=== PATIENT | female | born 1950 ===

== ENCOUNTER → 2020-02-27 10:31 | Outpatient (BNVA) | payer MEDICARE, SELFPAY | PROVIDERS: PCP Internal Medicine; Visit Provider Dietitian, Registered | DX: Z76.89 Persons encountering health services in other specified circumstances (principal) ==

== ENCOUNTER → 2020-04-23 08:37 | Outpatient (BNVA) | payer MEDICARE, SELFPAY | PROVIDERS: PCP Internal Medicine; Visit Provider Physician Assistant | DX: E66.3 Overweight (principal) | CPT/HCPCS: Q3014 ==

== ENCOUNTER → 2020-07-28 08:10 | Outpatient (BNVA) | payer MEDICARE, SELFPAY | PROVIDERS: PCP Internal Medicine; Visit Provider Dietitian, Registered ==

== ENCOUNTER → 2020-08-25 15:01 | Outpatient (BNVA) | payer MEDICARE, SELFPAY | PROVIDERS: PCP Internal Medicine; Visit Provider Dietitian, Registered | DX: E66.3 Overweight (principal) | CPT/HCPCS: 97803 ==

== ENCOUNTER → 2020-09-08 13:31 | Outpatient (BNVA) | payer MEDICARE, SELFPAY | PROVIDERS: PCP Internal Medicine; Visit Provider Physician Assistant | DX: E66.3 Overweight (principal); Z68.29 Body mass index [BMI] 29.0-29.9, adult | CPT/HCPCS: 99212 ==

== ENCOUNTER → 2020-09-28 09:10 | Outpatient (BNVA) | payer MEDICARE, SELFPAY | PROVIDERS: PCP Internal Medicine; Visit Provider Nurse Practitioner | DX: Z13.89 Encounter for screening for other disorder (principal) | CPT/HCPCS: Q3014 ==

== ENCOUNTER 2020-10-29 08:22 | Outpatient (REF) | payer MEDICARE, SELFPAY ==
[2020-10-29 12:40] LABS: Free T4 (Free Thyroxine) 0.75 ng/dL (0.71-1.85); Thyroid Stimulating Hormone 0.74 uIU/mL (0.32-4.0)
[2020-10-29 13:34] LABS: Cholesterol 250 mg/dL; HDL Cholesterol 75 mg/dL; LDL Cholesterol Calculated 164 mg/dl; Triglycerides 57 mg/dL
== END 2020-10-29 08:23 | disposition home or self-care (01) ==
LOC: HO.MANLR 08:22
PROVIDERS: PCP Internal Medicine; Visit Provider Internal Medicine
DX: E03.9 Hypothyroidism, unspecified (principal); E78.00 Pure hypercholesterolemia, unspecified
CPT/HCPCS: 36415; 80061; 84439; 84443

== ENCOUNTER → 2020-11-08 14:09 | Outpatient (BNVA) | payer MEDICARE, SELFPAY | PROVIDERS: PCP Internal Medicine; Visit Provider Nurse Practitioner | DX: R14.0 Abdominal distension (gaseous) (principal); K58.2 Mixed irritable bowel syndrome; R63.0 Anorexia; R63.3 Feeding difficulties; R11.0 Nausea; K21.9 Gastro-esophageal reflux disease without esophagitis; E66.3 Overweight; Z80.0 Family history of malignant neoplasm of digestive organs; D12.6 Benign neoplasm of colon, unspecified | CPT/HCPCS: 99212 ==

== ENCOUNTER → 2020-11-23 11:07 | Outpatient (BNVA) | payer MEDICARE, SELFPAY | PROVIDERS: PCP Internal Medicine; Visit Provider Physician Assistant | DX: E66.3 Overweight (principal); Z68.29 Body mass index [BMI] 29.0-29.9, adult | CPT/HCPCS: 99212 ==

== ENCOUNTER → 2020-12-22 10:59 | Outpatient (BNVA) | payer MEDICARE, SELFPAY | PROVIDERS: PCP Internal Medicine; Visit Provider Dietitian, Registered | DX: E66.3 Overweight (principal); Z68.29 Body mass index [BMI] 29.0-29.9, adult | CPT/HCPCS: 97803 ==

== ENCOUNTER 2020-12-31 10:26 | Day surgery (SDC) | payer MEDICARE, SELFPAY ==
[2020-12-24 09:45] VITALS: BMI 29.6
[2020-12-31 11:44] VITALS: BP 118/63; PULSE 66; RESP 16; TEMP 36.7; O2SAT 95
[2020-12-31] MEDS: Lactated Ringers 1,000 ML 50 ML IVCONT (11:53)
--- NOTE | 2020-12-31 12:30 | HO.ANESPROP2 ---
[facility] [place] Active Problems Active Problems: All Active Problems (Updated 11/10/20 @ 14:21 by JOSEPH Fishman) Tubular adenoma of colon (Acute) Family history of colon cancer (Acute) GERD (gastroesophageal reflux disease) (Acute) Abdominal bloating (Acute) Irritable bowel syndrome with both constipation and diarrhea (Acute) Lack of appetite (Acute) Food aversion (Acute) Chronic nausea (Acute) Overweight (BMI 25.0-29.9) (Acute) Past Medical History Medical History Asthma Chronic nausea Constipation Diarrhea Food aversion Hearing loss Hypothyroidism Insomnia Lack of appetite Osteopenia Overweight (BMI 25.0-29.9) Uses hearing aid Family History Family History Father Colon cancer Mother Bone loss Blindness Brother Obesity Brother No problems noted. Sister No problems noted. Son No problems noted. Daughter No problems noted. Family history of problems with anesthesia: No Surgical History Surgical History History of bladder suspension procedure History of dental mormon History of intraocular lens implant Hx of appendectomy Hx of breast reduction, elective History of Problems with Anesthesia: No Social History Social History Alcohol intake: never Patient Tobacco Use Status: Never used Tobacco Use of substances other than those prescribed or required for medical reasons: No Are you DNR?: No Advance Directives: No Advance Directives Information Provided: Yes Meds Allergies Allergy/AdvReac Type Severity Reaction Status Date / Time amoxicillin Allergy Severe Anaphylaxis Verified 12/31/20 11:30 citalopram [Celexa] Allergy Severe Anaphylaxis Verified 12/31/20 11:30 Fragrance Allergy Severe Anaphylaxis Uncoded 12/24/20 09:41 Fructose Allergy Severe Anaphylaxis Uncoded 12/24/20 09:41 Latex Allergy Severe Anaphylaxis Uncoded 12/24/20 09:41 Sulfacet-R Allergy Severe Anaphylaxis Uncoded 12/24/20 09:41 Active Medications: Current Medications Generic Name Dose Route Start Last Admin Trade Name Freq PRN Reason Stop Dose Admin Lactated Ringer's 1,000 mls @ 50 mls/hr 12/31/20 08:00 12/31/20 11:53 Lr IVCONT 50 mls/hr .Q20H LAMINE Administration Home Medications Medication Instructions Recorded Confirmed Last Taken Type albuterol sulfate 90 mcg/actuation 2 puff INHALATION 6XD 04/23/20 11/23/20 Unknown History aerosol inhaler atorvastatin 10 mg tablet 10 mg PO DAILY 04/23/20 11/23/20 Unknown History cholecalciferol (vitamin D3) 25 25 mcg PO DAILY 04/23/20 11/23/20 Unknown History mcg (1,000 unit) capsule levothyroxine 50 mcg capsule 50 mcg PO DAILY 04/23/20 11/23/20 Unknown History montelukast 10 mg tablet 10 mg PO DAILY 04/23/20 11/23/20 Unknown History sertraline 100 mg tablet 100 mg PO DAILY 04/23/20 11/23/20 Unknown History vitamin A palmitate 10,000 unit 10,000 unit PO DAILY 04/23/20 11/23/20 Unknown History tablet pgzbhy-vkyqnezs-kfwwphp 1 cap PO BID 11/23/20 11/23/20 Unknown History 24,000-76,000-120,000 unit capsule,delayed rel (Creon) ewbdbl-iczqpnqo-djthflf 2 cap PO ONCE cap 11/23/20 11/23/20 Unknown History 24,000-76,000-120,000 unit capsule,delayed rel (Creon) liothyronine 25 mcg tablet 1 tab PO DAILY 12/31/20 12/31/20 Unknown History Exam Exam Date and Time: December 31, 2020 1230 Height,Weight and Vital Signs: Height 5 ft 1 in Weight 71.214 kg Last Vital Signs Temp 98.0 F 12/31/20 11:44 Pulse 66 12/31/20 11:44 Resp 16 12/31/20 11:44 BP 118/63 12/31/20 11:44 Pulse Ox 95 12/31/20 11:44 Airway Mallampati Class: II TM Dist: >3cm Neck ROM: Full Assessment and Plan Assessment Anesthesia Assessment: Anesthesia Plan Discussed and Chart Reviewed Final Anesthetic Review Family History of Problems with Anesthesia: No History of Problems with Anesthesia: No NPO: Yes ASA Class: II Final Preanesthetic Review: No Changes in Pt Med Stat, Meds/Allgs Chart Reviewed, Consent Obtained/Reviewed and Anes Risks/Benef Reviewed Patient Risk: Low Procedure Risk: Low Assessment/Block/Sedation in SS: Assess/Block/Sedation-SS Anesthetic Plan Anesthetic Plan: MAC: Disposition: Standard PACU
--- NOTE | 2020-12-31 13:11 | MHC.SHP ---
Pre-Procedural Eval Section A Date of Service: 12/31/20 Section B Chief Complaint: IBS mixed Details of Present Illness: Colon cancer screening, history of colon polyps, family history of colon cancer, IBS Relevant Family History (Specify if Yes): Yes Relevant Social History: None Present Medications: see Short Stay Collaborative assessment Medical History: Significant History (Asthma Chronic nausea Constipation Diarrhea Food aversion Hearing loss Hypothyroidism Insomnia Lack of appetite Osteopenia Overweight (BMI 25.0-29.9) Uses hearing aid) History of Previous Operations: Relevant previous surgery/procedure and date(s) (History of bladder suspension procedure History of dental orthodoxy History of intraocular lens implant Hx of appendectomy Hx of breast reduction, elective) Allergies: Allergies Allergy/AdvReac Type Severity Reaction Status Date / Time amoxicillin Allergy Severe Anaphylaxis Verified 12/31/20 11:30 citalopram [Celexa] Allergy Severe Anaphylaxis Verified 12/31/20 11:30 Fragrance Allergy Severe Anaphylaxis Uncoded 12/24/20 09:41 Fructose Allergy Severe Anaphylaxis Uncoded 12/24/20 09:41 Latex Allergy Severe Anaphylaxis Uncoded 12/24/20 09:41 Sulfacet-R Allergy Severe Anaphylaxis Uncoded 12/24/20 09:41 Review of Systems Sugical H&P ROS: Negative: Constitution, Cardiovascular and Respiratory and Yes, Specify: Gastrointestinal (IBS mixed) Exam Surgical H&P Exam: Normal: Heart, Normal: Lungs, Normal: Extremities and Normal: Abdomen Plan Diagnosis/Plan: Unchanged I have reviewed the history and physical and performed a pertinent physical examination on my patient. No changes have occurred unless specified.
--- NOTE | 2020-12-31 13:18 | PM.OP ---
Brief Operative Note Date of Service: 12/31/20 Pre-op diagnosis: Colon cancer screening, history of colon polyps IBS with diarrhea and constipation, family history of colon cancer Post-op diagnosis: other (Colon polyps, diverticulosis, hemorrhoids) Procedure: COLONOSCOPY TILL CECUM BIOPSIES Consent: Indications for the procedure and potential complications of bleeding, perforation, reaction to medications and missed diagnosis were discussed with the patient and informed consent was obtained. Instrument: Olympus PCF H 190 L variable stiffness pediatric colonoscope Monitoring: Vital signs and clinical assessment, intermittent blood pressure monitoring, continuous EKG monitoring, Pulse oximetry and Carbon Dioxide monitoring were done throughout the procedure. Colon withdrawl time was 25 minutes. Procedure: The patient was placed in the left lateral decubitis position and pre-procedure medications were administered. After a digital rectal examination of the ano-rectum, the video colonoscope was inserted into the rectum and advanced through the colon to the cecum. The colonoscope was slowly withdrawn in a retrograde panoramic fashion and the colon mucosa was carefully examined including a retroflexed view of the rectum. Findings and interventions are described below. Procedure Difficulty: colon was long and tortuous and there was recurrent loop formation. LLQ pressure was applied to intubate the ascending colon Findings: Terminal Ileum: Not evaluated Cecum: Normal Ascending Colon: Normal Transverse Colon: A 3-4 mm sessile polyp removed with the cold biopsy Descending Colon: Moderate diverticulosis Sigmoid Colon: A 2-3 mm sessile polyp removed with the cold biopsy and severe diverticulosis Rectum: A 4 to 5 mm diminutive appearing polyps - 1 removed with the cold biopsy Ano-rectum: Small internal hemorrhoids Colon preparation: Excellent Impression and Post Procedure Diagnosis: Colonoscopy Findings: Three small polyps removed. Random biopsies were obtained from the colon to check for microscopic colitis Moderate to severe diverticulosis seen in the left colon Small hemorrhoids on retroflexed exam. Plan: Await pathology results Patient has an appointment on 02/04/21 in the GI Clinic with Pricila Vail NP. Repeat Colonoscopy interval based on path results - in 5 years if polyps are adenomatous and due to a hx of colon polyps and FH of colon cancer. Above findings were reviewed with the patient and colon polyps and diverticulosis handouts were given in the discharge area Surgeon: Alisha Mcdonough MD Anesthesia: MAC (Mitzy Krishna CRNA) Was an Automotive Collision Repair Instructor used for this Procedure?: Yes Automotive Collision Repair Instructor: Damaris Iraheta Estimated blood loss (mL): 0 Pathology: other (A- TRANSVERSE COLON POLYP B- RANDOM COLON BIOPSIES R/O MICROSCOPIC COLITIS C- SIGMOID COLON POLYP D- RECTAL POLYP) Condition: stable Disposition: PACU
--- NOTE | 2020-12-31 13:21 | W.PM.OPN ---
Operative Note Operative Note Date of Service: 12/31/20 Narrative: Pre-op diagnosis:?Colon cancer screening, history of colon polyps IBS with diarrhea and constipation, family history of colon cancer Post-op diagnosis:?other (Colon polyps, diverticulosis, hemorrhoids) Procedure:? COLONOSCOPY TILL CECUM BIOPSIES Consent: Indications for the procedure and potential complications of bleeding, perforation, reaction to medications and missed diagnosis were discussed with the patient and informed consent was obtained. Instrument: Olympus PCF H 190 L variable stiffness pediatric colonoscope Monitoring: Vital signs and clinical assessment, intermittent blood pressure monitoring, continuous EKG monitoring, Pulse oximetry and Carbon Dioxide monitoring were done throughout the procedure. Colon withdrawl time was 25 minutes. Procedure: The patient was placed in the left lateral decubitis position and pre-procedure medications were administered. After a digital rectal examination of the ano-rectum, the video colonoscope was inserted into the rectum and advanced through the colon to the cecum. The colonoscope was slowly withdrawn in a retrograde panoramic fashion and the colon mucosa was carefully examined including a retroflexed view of the rectum. Findings and interventions are described below. Procedure Difficulty: colon was long and tortuous and there was recurrent loop formation. LLQ pressure was applied to intubate the ascending colon Findings: Terminal Ileum: Not evaluated Cecum:? Normal Ascending Colon:? Normal Transverse Colon:? A 3-4 mm sessile polyp removed with the cold biopsy Descending Colon:? Moderate diverticulosis Sigmoid Colon:? A 2-3 mm sessile polyp removed with the cold biopsy and severe diverticulosis Rectum:? A 4 to 5 mm diminutive appearing polyps - 1 removed with the cold biopsy Ano-rectum:? Small internal hemorrhoids Colon preparation: Excellent ? Impression and Post Procedure Diagnosis: Colonoscopy Findings: Three small polyps removed. Random biopsies were obtained from the colon to check for microscopic colitis Moderate to severe diverticulosis seen in the left colon Small hemorrhoids on retroflexed exam. Plan: Await pathology results Patient has an appointment on 02/04/21 in the GI Clinic with? Pricila Vail NP. Repeat Colonoscopy interval based on path results - in 5 years if polyps are adenomatous and due to a hx of colon polyps and FH of colon cancer. Above findings were reviewed with the patient and colon polyps and diverticulosis handouts were given in the discharge area Surgeon:?Alisha Mcdonough MD Anesthesia:?MAC (Mitzy Krishna CRNA) Was an Electrical Maintenance Man used for this Procedure?:?Yes Electrical Maintenance Man:?Damaris Iraheta Estimated blood loss (mL):?0 Pathology:?other (A- TRANSVERSE COLON POLYP? B- RANDOM COLON BIOPSIES R/O MICROSCOPIC COLITIS? C- SIGMOID COLON POLYP? D- RECTAL POLYP) Condition:?stable Disposition:?PACU
[2020-12-31 14:13] VITALS: BP 94/47; PULSE 61; RESP 16; TEMP 36.3; O2SAT 98
[2020-12-31 14:28] VITALS: BP 108/65; PULSE 61; RESP 16; TEMP 36.3; O2SAT 95
== END 2020-12-31 15:07 | disposition home or self-care (01) ==
PROVIDERS: PCP Internal Medicine; Visit Provider Internal Medicine Gastroenterology
PROC: 0DJD8ZZ Inspection of Lower Intestinal Tract, Via Natural or Artificial Opening Endoscopic (ICD-10-PCS; CPT 45378; principal; 2020-12-31 11:00)
DX: Z12.11 Encounter for screening for malignant neoplasm of colon (principal); Z86.010 Personal history of colon polyps; Z80.0 Family history of malignant neoplasm of digestive organs; D12.3 Benign neoplasm of transverse colon; K63.5 Polyp of colon; K62.1 Rectal polyp; K58.2 Mixed irritable bowel syndrome; K57.30 Diverticulosis of large intestine without perforation or abscess without bleeding; K64.8 Other hemorrhoids; K21.9 Gastro-esophageal reflux disease without esophagitis; E66.3 Overweight; Z68.29 Body mass index [BMI] 29.0-29.9, adult; R14.0 Abdominal distension (gaseous); R63.0 Anorexia; J45.909 Unspecified asthma, uncomplicated; M85.80 Other specified disorders of bone density and structure, unspecified site; Z91.040 Latex allergy status; Z88.1 Allergy status to other antibiotic agents; Z88.2 Allergy status to sulfonamides; Z79.899 Other long term (current) drug therapy
CPT/HCPCS: 45380; 88305

== ENCOUNTER 2021-01-28 10:20 | Outpatient (REF) | payer MEDICARE, SELFPAY ==
[2021-01-28 13:37] LABS: Cholesterol 186 mg/dL; HDL Cholesterol 52 mg/dL; LDL Cholesterol Calculated 108 mg/dl; Triglycerides 133 mg/dL
[2021-01-28 14:00] LABS: Free T4 (Free Thyroxine) 0.63 ng/dL (0.71-1.85); Thyroid Stimulating Hormone 0.65 uIU/mL (0.32-4.0)
== END 2021-01-28 10:21 | disposition home or self-care (01) ==
LOC: HO.MANLDS 10:20
PROVIDERS: PCP Internal Medicine; Visit Provider Internal Medicine
DX: E03.9 Hypothyroidism, unspecified (principal); E78.00 Pure hypercholesterolemia, unspecified
CPT/HCPCS: 36415; 80061; 84439; 84443

== ENCOUNTER → 2021-01-31 14:08 | Outpatient (BNVA) | payer MEDICARE, SELFPAY | PROVIDERS: PCP Internal Medicine; Visit Provider Physician Assistant | DX: E66.3 Overweight (principal); Z68.29 Body mass index [BMI] 29.0-29.9, adult | CPT/HCPCS: 99212 ==

== ENCOUNTER → 2021-02-04 13:30 | Outpatient (BNVA) | payer MEDICARE, SELFPAY | PROVIDERS: PCP Internal Medicine; Referring Provider Internal Medicine; Visit Provider Nurse Practitioner | DX: K21.9 Gastro-esophageal reflux disease without esophagitis (principal); K58.2 Mixed irritable bowel syndrome; R14.0 Abdominal distension (gaseous); R11.0 Nausea; D12.6 Benign neoplasm of colon, unspecified | CPT/HCPCS: 99212 ==

== ENCOUNTER → 2021-04-04 14:56 | Outpatient (BNVA) | payer MEDICARE, SELFPAY | PROVIDERS: PCP Internal Medicine; Visit Provider Physician Assistant | DX: E66.3 Overweight (principal); Z68.29 Body mass index [BMI] 29.0-29.9, adult | CPT/HCPCS: 99212 ==

== ENCOUNTER → 2021-05-09 10:35 | Outpatient (BNVA) | payer MEDICARE, SELFPAY | PROVIDERS: PCP Internal Medicine; Visit Provider Dietitian, Registered | DX: E66.3 Overweight (principal); Z68.28 Body mass index [BMI] 28.0-28.9, adult | CPT/HCPCS: 97803 ==

== ENCOUNTER → 2021-06-22 09:35 | Outpatient (BNVA) | payer MEDICARE, SELFPAY | PROVIDERS: PCP Internal Medicine; Visit Provider Physician Assistant | DX: E66.3 Overweight (principal); R11.0 Nausea; Z68.29 Body mass index [BMI] 29.0-29.9, adult | CPT/HCPCS: 99212 ==

== ENCOUNTER → 2021-08-05 11:00 | Outpatient (BNVA) | payer MEDICARE, SELFPAY | PROVIDERS: PCP Internal Medicine; Visit Provider Nurse Practitioner | DX: K21.9 Gastro-esophageal reflux disease without esophagitis (principal); K58.2 Mixed irritable bowel syndrome; R14.0 Abdominal distension (gaseous) | CPT/HCPCS: 99212 ==

== ENCOUNTER → 2021-12-13 11:32 | Outpatient (BNVA) | payer MEDICARE, SELFPAY | PROVIDERS: PCP Internal Medicine; Visit Provider Physician Assistant | DX: E66.3 Overweight (principal); Z68.28 Body mass index [BMI] 28.0-28.9, adult | CPT/HCPCS: 99212 ==

== ENCOUNTER → 2022-03-17 12:30 | Outpatient (BNVA) | payer MEDICARE, SELFPAY | PROVIDERS: PCP Internal Medicine; Visit Provider Nurse Practitioner | DX: K21.9 Gastro-esophageal reflux disease without esophagitis (principal); K58.2 Mixed irritable bowel syndrome; R14.0 Abdominal distension (gaseous) | CPT/HCPCS: 99212 ==

== ENCOUNTER 2022-06-09 12:18 | Outpatient (REF) | payer MEDICARE, SELFPAY ==
[2022-06-09 14:22] LABS: Appearance Urine Clear; Color Urine Yellow; Glucose Urine UA Negative (Negative); Leukocyte Esterase Urine Trace (Negative); Nitrite Urine Negative (Negative); PH 5.5 (5.0-9.0); UMIC TRIGGER UACC YES; Urine Blood Negative (Negative); Urine Ketones Negative (Negative); Urine Protein Negative (Neg-Trace)
[2022-06-09 14:24] LABS: Bacteria Urine None Seen (None Seen); Hyaline Casts Urine 0-2 /LPF (0-2); RBC Urine 0-2 /HPF (0-2); WBC Urine 0-5 /HPF (0-5)
== END 2022-06-09 12:19 | disposition home or self-care (01) ==
LOC: HO.MANLDS 12:18
PROVIDERS: Visit Provider Physician Assistant
DX: R30.9 Painful micturition, unspecified (principal)
CPT/HCPCS: 81001; 87086

== ENCOUNTER → 2022-09-01 12:13 | Outpatient (BNVA) | payer MEDICARE, SELFPAY | PROVIDERS: PCP Internal Medicine; Visit Provider Nurse Practitioner | DX: K21.9 Gastro-esophageal reflux disease without esophagitis (principal); R14.0 Abdominal distension (gaseous); K58.2 Mixed irritable bowel syndrome | CPT/HCPCS: 99212 ==

== ENCOUNTER 2022-11-22 10:14 | Outpatient (REF) | payer MEDICARE, SELFPAY | END 2022-11-22 10:15 | disposition home or self-care (01) | LOC: HO.MANLDS 10:14 | PROVIDERS: Visit Provider Physician Assistant | DX: E03.8 Other specified hypothyroidism (principal); E78.2 Mixed hyperlipidemia; R30.9 Painful micturition, unspecified; M85.80 Other specified disorders of bone density and structure, unspecified site | CPT/HCPCS: 36415; 80053; 80061; 82306; 83970; 84439; 84443; 85025 ==

== ENCOUNTER 2023-03-28 10:15 | Outpatient (AMB) | payer MEDICARE, SELFPAY ==
--- NOTE | 2023-03-28 10:23 | A.OFFVIS_ITS ---
Intake Vital Signs 03/28/23 10:31 Height 5 ft 1 in Weight 151 lb 10.848 oz BMI 28.7 BP 131/63 Blood Pressure Location Lt brachial Position Sitting Pulse 83 Intake Visit Reasons: 6 mnth follow up Intake Note: Alesia presents in office as a est.patient for a 6month f/u PT CC: Patient reports she got off track after her had a stroke and gain about 5 pounds but is now doing better. Customer Support Analyst Required: No Accompanied by: Self / Same As Patient Allergies amoxicillin Allergy (Severe, Verified 03/28/23 10:35) Anaphylaxis citalopram [Celexa] Allergy (Severe, Verified 03/28/23 10:35) Anaphylaxis Sulfa (Sulfonamide Antibiotics) Allergy (Unknown, Verified 03/28/23 10:35) Unknown Fragrance Allergy (Severe, Uncoded 09/01/22 12:22) Anaphylaxis Fructose Allergy (Severe, Uncoded 09/01/22 12:22) Anaphylaxis Latex Allergy (Severe, Uncoded 09/01/22 12:22) Anaphylaxis Sulfacet-R Allergy (Severe, Uncoded 09/01/22 12:22) Anaphylaxis HPI 6 mnth follow up HPI Details Assessment & Plan (1) Irritable bowel syndrome with both c onstipation and diarrhea: Code(s): K58.2 - Mixed irritable bowel syndrome Plan: She is doing fairly well and has only had one episode of bloating and diarrhea since we last met! She is happy with this. Strangely, her taste has changed and oranges and grapes taste like dirt. She feels much better and says the Creon changed her almost instantly! She is trying to eat more healthfully. She is on a new medicine for dry mouth. She does not know the name. She continues on omeprazole with good control of her GERD. Return office visit in 6 months (2) GERD (gastroesophageal reflux diseas e): Code(s): K21.9 - Gastro-esophageal reflux disease without esophagitis (3) Abdominal bloating: Code(s): R14.0 - Abdominal distension (gaseous) Medications: Refilled ldwcan-faajekvp-yb ylase 24,000-76,00 0 -120,000 unit (C reon) administe r with meals and/o r snacks 1 cap PO QID 120 c aps 6RF 30 days K58.2 - Mixed irri table bowel syndro me omeprazole 20 mg PO BID 60 ca ps 6RF K21.9 - Gastro-eso phageal reflux dis ease without esoph agitis, E66.3 - Ov erweight TODAY'S VISIT She says I was doing great, but then my had his second stroke. She has to care for him and her mother, and with the stress she gained 5 lbs and it felt terrible! However, she feels that her creon and omeprazole are working well. She is in the process of dieting to lose the weight. ROV 6 mos. PFSH Medical History Asthma Chronic nausea Constipation Diarrhea Food aversion Hearing loss Hypothyroidism Insomnia Lack of appetite Osteopenia Overweight (BMI 25.0-29.9) Uses hearing aid Surgical History History of bladder suspension procedure History of dental latter day History of esophagogastroduodenoscopy (EGD) History of intraocular lens implant Hx of appendectomy Hx of breast reduction, elective Hx of colonoscopy Family History Father Colon cancer Mother Bone loss Blindness Brother Obesity Brother No problems noted. Sister No problems noted. Son No problems noted. Daughter No problems noted. Social History Alcohol intake: never Patient Tobacco Use Status: Never used Tobacco Review of Systems Const Denies fatigue, Denies fever(s), Denies night sweats, Denies poor appetite, Reports weight gain and Denies weight loss ENT Reports Normal hearing present, Denies dental pain, Denies dysphagia, Denies hearing loss, Denies mouth pain, Denies odynophagia, Denies throat swelling, Denies tongue swelling and Reports other (Dentition adequate) Card Reports no additional complaints Resp Reports no additional complaints GI Denies abdominal pain, Denies melena, Reports bloating, Denies hematochezia, Denies constipation, Denies GI cramping, Denies dysphagia, Denies excessive flatus, Denies early satiety, Reports heartburn, Denies diarrhea, Denies nausea, Denies odynophagia, Denies vomiting and Denies hematemesis Skin/Breast Denies pruritus, Denies lesions, Denies rash and Denies jaundice Neuro Reports Normal hearing present and Denies Abnormal speech present Endo Denies fatigue Aller/Immun Denies throat swelling and Denies tongue swelling Physical Exam Vital Signs: Last Vital Signs Pulse 83 03/28/23 10:31 BP 131/63 03/28/23 10:31 BMI result Body Mass Index 28.7 Const General: cooperative, no acute distress, well developed and well groomed Nutritional Appearance: average body habitus and well nourished Orientation/consciousness: oriented to person, oriented to place and oriented to time Limitations: No language barrier HEENT Head: Yes normocephalic and Yes atraumatic Eyes General: appearance normal, both eyes and all related structures Pupils: Equal, round and reactive pupils present Neck Neck: Yes normal visual inspection and Yes no lymphadenopathy Thyroid: Thyroid normal Resp Effort & Inspection: normal respiratory effort and able to speak in complete sentences Auscultation: clear to auscultation bilaterally Cardio Rate: regular rate Rhythm: regular rhythm Heart sounds: Normal, physiologic split S2 sound present Peripheral pulses: radial pulses present and posterior tibial pulses present GI Inspection: No distended and No Abdominal panniculus present Palpation (GI): Soft to palpation, nontender, no guarding, not rigid and No hepatosplenomegaly present Percussion: Yes normal to percussion Auscultation: normal bowel sounds Rectal Exam - Female: deferred Skin General skin exam: no rashes or lesions noted, turgor normal, skin not dry, no jaundice, No spider nevi and no striae Rashes: no rashes Nails: normal Neuro General: oriented to person, oriented to place and oriented to time Cranial nerves: Yes Equal, round and reactive pupils present and Yes Normal hearing present Speech: No Abnormal speech present Extrem General: Yes normal to inspection, No clubbing, No cyanosis and No edema Psych Appearance: grossly normal and well kempt Mental Status: mental status grossly normal Speech and movement: Normal speech and movement present Affect: normal affect Attitude: cooperative Thought process: Normal thought process present and not confabulating Thought content: Normal thought content present Insight: Fair insight present (Psych) Judgement: Fair judgement present (Psych) Assessment & Plan Assessment & Plan (1) Irritable bowel syndrome with both constipation and diarrhea: Code(s): K58.2 - Mixed irritable bowel syndrome Plan: She says I was doing great, but then my had his second stroke. She has to care for him and her mother, and with the stress she gained 5 lbs and it felt terrible! However, she feels that her creon and omeprazole are working well. She is in the process of dieting to lose the weight. ROV 6 mos. (2) Abdominal bloating: Code(s): R14.0 - Abdominal distension (gaseous) (3) GERD (gastroesophageal reflux disease): Code(s): K21.9 - Gastro-esophageal reflux disease without esophagitis Medications: Refilled phzccx-mbvnxbyo-fronspk 24,000-76,000 -120,000 unit (Creon) administer with meals and/or snacks 1 cap PO QID 30 days 120 caps 6RF K58.2 - Mixed irritable bowel syndrome omeprazole 20 mg PO BID 60 caps 6RF E66.3 - Overweight, K21.9 - Gastro-esophage al reflux disease without esophagitis Coding Level of Care Code Est Pt Level 3 (57977) Diagnoses Irritable bowel syndrome with both constipation and diarrhea K58.2 Abdominal bloating R14.0 GERD (gastroesophageal reflux disease) K21.9
[2023-03-28 10:31] VITALS: BP 131/63; PULSE 83; BMI 28.7
== END 2023-03-28 10:54 | disposition home or self-care (01) ==
PROVIDERS: Visit Provider Nurse Practitioner
DX: K58.2 Mixed irritable bowel syndrome (principal); R14.0 Abdominal distension (gaseous); K21.9 Gastro-esophageal reflux disease without esophagitis
CPT/HCPCS: 99213

== ENCOUNTER → 2023-03-28 10:15 | Outpatient (BNVA) | payer MEDICARE, SELFPAY | PROVIDERS: Visit Provider Nurse Practitioner | DX: K58.2 Mixed irritable bowel syndrome (principal); K21.9 Gastro-esophageal reflux disease without esophagitis; R14.0 Abdominal distension (gaseous) | CPT/HCPCS: 99212 ==

== ENCOUNTER 2023-09-26 11:29 | Outpatient (AMB) | payer MEDICARE, SELFPAY ==
--- NOTE | 2023-09-26 11:32 | A.OFFVIS_ITS ---
Vital Signs 09/26/23 11:36 Height 5 ft 1 in Weight 157 lb 13.616 oz BMI 29.8 BP 105/64 Blood Pressure Location Lt brachial Position Sitting Pulse 73 Intake Visit Reasons: 6 month follow up GERD, IBS Intake Note: Alesia presents to in office visit today in 6 months follow up of GERD. CC: Patient reports constantly having either constipation or diarrhea, nausea. Differential Tester Required: No Accompanied by: Self / Same As Patient Allergies amoxicillin Allergy (Severe, Verified 09/26/23 11:40) Anaphylaxis citalopram [Celexa] Allergy (Severe, Verified 09/26/23 11:40) Anaphylaxis Sulfa (Sulfonamide Antibiotics) Allergy (Unknown, Verified 09/26/23 11:40) Unknown Fragrance Allergy (Severe, Uncoded 09/01/22 12:22) Anaphylaxis Fructose Allergy (Severe, Uncoded 09/01/22 12:22) Anaphylaxis Latex Allergy (Severe, Uncoded 09/01/22 12:22) Anaphylaxis Sulfacet-R Allergy (Severe, Uncoded 09/01/22 12:22) Anaphylaxis HPI HPI 6 month follow up GERD, IBS: Details: Assessment & Plan (1) Irritable bowel syndrome with both constipation and diarrhea: Code(s): K58.2 - Mixed irritable bowel syndrome Plan: She says I was doing great, but then my had his second stroke. She has to care for him and her mother, and with the stress she gained 5 lbs and it felt terrible! However, she feels that her creon and omeprazole are working well. She is in the process of dieting to lose the weight. ROV 6 mos. (2) Abdominal bloating: Code(s): R14.0 - Abdominal distension (gaseous) (3) GERD (gastroesophageal reflux disease): Code(s): K21.9 - Gastro-esophageal reflux disease without esophagitis Medications: Refilled [id number] 24,000-76,000 -120,000 unit (Creon) administer with meals and/or snacks 1 cap PO QID 30 days 120 caps 6RF K58.2 - Mixed irritable bowel syndrome omeprazole 20 mg PO BID 60 caps 6RF E66.3 - Overweight, K21.9 - Gastro-esophageal reflux disease without esophagitis CORRESPONDENCE On 08/24/23 @ 14:49 Tonja Thorpe Wrote To Genna I spoke w/ patient. patient states her initial prescription wasn't in stock at [facility]. patient states she went to the [facility] in [place] on [address] and was given a qty of 8. I called pharmacy and partial qty was dispensed because they did not have any in stock. I was informed they will be getting more in and will then fill script for patient Tonja Thorpe removed from item. On 08/24/23 @ 14:21 Darlyn Martini Wrote To Genna (2) pt called and stated that she needs a new prescription for creon. she is also for a call back diamante [id number] 24,000-76,000-120,000 unit capsule,delayed rel (Creon) - 1 cap PO QID 120 caps 6RF 30 days Last Rx written: 03/28/23 Franca Vail TODAY'S VISIT She did finally get the creon and it still helps her a great deal! This has been due to supply issues and she has had to shop around to keep it filled. She has stared going to the gym and using a personal clothing laundry aide and trying to lose weight. Her is doing okay, had an episode of low blood sugar that mimicked stroke but he improved with sugar. Her mother was hospitalized and now is in assisted living and loving it! ROV 6 mos. PFSH Medical History Asthma Chronic nausea Constipation Diarrhea Food aversion Hearing loss Hypothyroidism Insomnia Lack of appetite Osteopenia Overweight (BMI 25.0-29.9) Uses hearing aid Surgical History History of bladder suspension procedure History of dental rastafarian History of esophagogastroduodenoscopy (EGD) History of intraocular lens implant Hx of appendectomy Hx of breast reduction, elective Hx of colonoscopy Family History Father Colon cancer Mother Bone loss Blindness Brother Obesity Brother No problems noted. Sister No problems noted. Son No problems noted. Daughter No problems noted. Social History Alcohol intake: never Patient Tobacco Use Status: Never used Tobacco Review of Systems Const Denies fatigue, Denies fever(s), Denies night sweats, Denies poor appetite and Reports weight loss (Intentional dieting) ENT Reports Normal hearing present, Denies dental pain, Denies dysphagia, Denies hearing loss, Denies mouth pain, Denies odynophagia, Denies throat swelling, Denies tongue swelling and Reports other (Dentition adequate) Card Reports no additional complaints Resp Reports no additional complaints GI Details: Denies abdominal pain, Denies melena, Reports bloating, Denies hematochezia, Denies constipation, Denies GI cramping, Denies dysphagia, Denies excessive flatus, Denies early satiety, Reports heartburn, Denies diarrhea, Denies nausea, Denies odynophagia, Denies vomiting and Denies hematemesis Skin/Breast Denies pruritus, Denies lesions, Denies rash and Denies jaundice Neuro Reports Normal hearing present and Denies Abnormal speech present Endo Denies fatigue Aller/Immun Denies throat swelling and Denies tongue swelling Physical Exam Vital Signs: Last Vital Signs Pulse 73 09/26/23 11:36 BP 105/64 09/26/23 11:36 BMI result Body Mass Index 29.8 Const General: cooperative, no acute distress, well developed and well groomed Nutritional Appearance: well nourished and overweight Orientation/consciousness: oriented to person, oriented to place and oriented to time Limitations: No language barrier HEENT Head: Yes normocephalic and Yes atraumatic Eyes General: appearance normal, both eyes and all related structures Pupils: Equal, round and reactive pupils present Neck Neck: Yes normal visual inspection and Yes no lymphadenopathy Thyroid: Thyroid normal Resp Effort & Inspection: normal respiratory effort and able to speak in complete se ntences Auscultation: clear to auscultation bilaterally Cardio Rate: regular rate Rhythm: regular rhythm Heart sounds: Normal, physiologic split S2 sound present Peripheral pulses: radial pulses present and posterior tibial pulses present GI Inspection: No distended and No Abdominal panniculus present Palpation (GI): Soft to palpation, nontender, no guarding, not rigid and No hep atosplenomegaly present Percussion: Yes normal to percussion Auscultation: normal bowel sounds Rectal Exam - Female: deferred Skin General skin exam: no rashes or lesions noted, turgor normal, skin not dry, no jaundice, No spider nevi and no striae Rashes: no rashes Nails: normal Neuro General: oriented to person, oriented to place and oriented to time Cranial nerves: Yes Equal, round and reactive pupils present and Yes Normal hearing present Speech: No Abnormal speech present Extrem General: Yes normal to inspection, No clubbing, No cyanosis and No edema Psych Appearance: grossly normal and well kempt Mental Status: mental status grossly normal Speech and movement: Normal speech and movement present Affect: normal affect Attitude: cooperative Thought process: Normal thought process present and not confabulating Thought content: Normal thought content present Insight: Good insight present (Psych) Judgement: Good judgement present (Psych) Assessment & Plan Assessment & Plan (1) GERD (gastroesophageal reflux disease): Code(s): K21.9 - Gastro-esophageal reflux disease without esophagitis Category: Medical (2) Irritable bowel syndrome with both constipation and diarrhea: Code(s): K58.2 - Mixed irritable bowel syndrome Category: Medical (3) Abdominal bloating: Code(s): R14.0 - Abdominal distension (gaseous) Category: Medical Plan She did finally get the creon and it still helps her a great deal! This has been due to supply issues and she has had to shop around to keep it filled. She continues on her omeprazole with good control of her GERD. She has stared going to the gym and using a personal clothing laundry aide and trying to lose weight. Her is doing okay, had an episode of low blood sugar that mimicked stroke but he improved with sugar. Her mother was hospitalized and now is in assisted living and loving it! ROV 6 mos. Medications: Refilled [id number]-[id number] 24,000-76,000 -120,000 unit (Creon) administer with meals and/or snacks 1 cap PO QID 120 caps 6RF 30 days K58.2 - Mixed irritable bowel syndrome omeprazole 20 mg PO BID 60 caps 6RF E66.3 - Overweight, K21.9 - Gastro- esophageal reflux disease without esophagitis Coding Level of Care Code Est Pt Level 3 (31244) Diagnoses GERD (gastroesophageal reflux disease) K21.9 Irritable bowel syndrome with both constipation and diarrhea K58.2 Abdominal bloating R14.0
[2023-09-26 11:36] VITALS: BP 105/64; PULSE 73; BMI 29.8
== END 2023-09-26 13:02 | disposition home or self-care (01) ==
PROVIDERS: PCP Internal Medicine; Visit Provider Nurse Practitioner
DX: K21.9 Gastro-esophageal reflux disease without esophagitis (principal); K58.2 Mixed irritable bowel syndrome; R14.0 Abdominal distension (gaseous)
CPT/HCPCS: 99213

== ENCOUNTER → 2023-09-26 11:29 | Outpatient (BNVA) | payer MEDICARE, SELFPAY | PROVIDERS: PCP Internal Medicine; Visit Provider Nurse Practitioner | DX: K21.9 Gastro-esophageal reflux disease without esophagitis (principal); K58.2 Mixed irritable bowel syndrome; R14.0 Abdominal distension (gaseous) | CPT/HCPCS: 99212 ==

== ENCOUNTER 2024-03-28 10:58 | Outpatient (AMB) | payer MEDICARE, SELFPAY ==
[2024-03-28 11:01] VITALS: BP 136/65; PULSE 73; BMI 30.8
--- NOTE | 2024-03-28 11:01 | MHC.OFFVIS ---
Vital Signs 03/28/24 11:01 Height 5 ft 1 in Weight 163 lb 2.273 oz BMI 30.8 BP 136/65 Blood Pressure Location Lt brachial Position Sitting Pulse 73 Intake Visit Reasons: Follow up 6 months Intake Note: Alesia presents in 6 months follow up of GERD and IBS. CC: Patient states that she joined a gym with a outdoor fitness trainer and she is feeling better. Per patient states that she is eating 6 prunes a day and that helps her go to the bathroom. Operations Analyst Required: No Accompanied by: Self / Same As Patient Allergies amoxicillin Allergy (Severe, Verified 03/28/24 11:19) Anaphylaxis citalopram [Celexa] Allergy (Severe, Verified 03/28/24 11:19) Anaphylaxis Sulfa (Sulfonamide Antibiotics) Allergy (Unknown, Verified 03/28/24 11:19) Unknown Fragrance Allergy (Severe, Uncoded 09/01/22 12:22) Anaphylaxis Fructose Allergy (Severe, Uncoded 09/01/22 12:22) Anaphylaxis Latex Allergy (Severe, Uncoded 09/01/22 12:22) Anaphylaxis Sulfacet-R Allergy (Severe, Uncoded 09/01/22 12:22) Anaphylaxis HPI HPI Follow up 6 months: Details: Assessment & Plan (1) GERD (gastroesophageal reflux disease): Code(s): K21.9 - Gastro-esophageal reflux disease without esophagitis Category: Medical (2) Irritable bowel syndrome with both constipation and diarrhea: Code(s): K58.2 - Mixed irritable bowel syndrome Category: Medical (3) Abdominal bloating: Code(s): R14.0 - Abdominal distension (gaseous) Category: Medical Plan She did finally get the creon and it still helps her a great deal! This has been due to supply issues and she has had to shop around to keep it filled. She continues on her omeprazole with good control of her GERD. She has stared going to the gym and using a outdoor fitness trainer and trying to lose weight. Her is doing okay, had an episode of low blood sugar that mimicked stroke but he improved with sugar. Her mother was hospitalized and now is in assisted living and loving it! ROV 6 mos. Medications: Refilled iyliou-kiyfwbxi-yliwjbz 24,000-76,000 -120,000 unit (Creon) administer with meals and/or snacks 1 cap PO QID 120 caps 6RF 30 days K58.2 - Mixed irritable bowel syndrome omeprazole 20 mg PO BID 60 caps 6RF E66.3 - Overweight, K21.9 - Gastro-esophageal reflux disease without esophagitis TODAY'S VISIT Shayne is working well, now has a trigger finger. Strange taste x 2 weeks like garbage, sometimes metallic had UTI recently with abx, suggest probiotic tic. She continues on her omeprazole 20 mg twice a day ROV 6 mos. [facility], [facility] Medical History Lack of appetite Food aversion Constipation Diarrhea Chronic nausea Uses hearing aid Hearing loss Insomnia Osteopenia Hypothyroidism Asthma Overweight (BMI 25.0-29.9) Surgical History History of esophagogastroduodenoscopy (EGD) Hx of colonoscopy Hx of breast reduction, elective History of intraocular lens implant History of dental christian Hx of appendectomy History of bladder suspension procedure Family History Father Colon cancer Mother Bone loss Blindness Brother Obesity Brother No problems noted. Sister No problems noted. Son No problems noted. Daughter No problems noted. Social History Alcohol intake: never Patient Tobacco Use Status: Never used Tobacco Review of Systems Const Denies fatigue, Denies fever(s), Denies night sweats, Reports poor appetite and Denies weight loss ENT Details: Strange taste in her mouth Reports Normal hearing present, Denies dental pain, Denies dysphagia, Denies hearing loss, Denies mouth pain, Denies odynophagia, Denies throat swelling, Denies tongue swelling and Reports other (Dentition adequate) Card Reports no additional complaints Resp Reports no additional complaints GI Details: Denies abdominal pain, Denies melena, Reports bloating, Denies hematochezia, Denies constipation, Denies GI cramping, Denies dysphagia, Denies excessive flatus, Denies early satiety, Reports heartburn, Denies diarrhea, Reports loose stools, Denies nausea, Denies odynophagia, Denies vomiting and Denies hematemesis Skin/Breast Denies pruritus, Denies lesions, Denies rash and Denies jaundice Neuro Reports Normal hearing present and Denies Abnormal speech present Endo Denies fatigue Aller/Immun Denies throat swelling and Denies tongue swelling Physical Exam Vital Signs: Last Vital Signs Pulse 73 03/28/24 11:01 BP 136/65 03/28/24 11:01 BMI result Body Mass Index 30.8 Const General: cooperative, no acute distress, well developed and well groomed Nutritional Appearance: well nourished and obese Orientation/consciousness: oriented to person, oriented to place and oriented to time Limitations: No language barrier HEENT Head: Yes normocephalic and Yes atraumatic Eyes General: appearance normal, both eyes and all related structures Pupils: Equal, round and reactive pupils present Neck Neck: Yes normal visual inspection and Yes no lymphadenopathy Thyroid: Thyroid normal Resp Effort & Inspection: normal respiratory effort and able to speak in complete sentences Auscultation: clear to auscultation bilaterally Cardio Rate: regular rate Rhythm: regular rhythm Heart sounds: Normal, physiologic split S2 sound present Peripheral pulses: radial pulses present and posterior tibial pulses present GI Inspection: No distended and No Abdominal panniculus present Palpation (GI): Soft to palpation, nontender, no guarding, not rigid and No hepatosplenomegaly present Percussion: Yes normal to percussion Auscultation: normal bowel sounds Rectal Exam - Female: deferred Skin General skin exam: no rashes or lesions noted, turgor normal, skin not dry, no jaundice, No spider nevi and no striae Rashes: no rashes Nails: normal Neuro General: oriented to person, oriented to place and oriented to time Cranial nerves: Yes Equal, round and reactive pupils present and Yes Normal hearing present Speech: No Abnormal speech present Extrem General: Yes normal to inspection, No clubbing, No cyanosis and No edema Psych Appearance: grossly normal and well kempt Mental Status: mental status grossly normal Speech and movement: Normal speech and movement present Affect: normal affect Attitude: cooperative Thought process: Normal thought process present and not confabulating Thought content: Normal thought content present Insight: Good insight present (Psych) Judgement: Good judgement present (Psych) Assessment & Plan Assessment & Plan (1) GERD (gastroesophageal reflux disease): Code(s): K21.9 - Gastro-esophageal reflux disease without esophagitis Category: Medical (2) Irritable bowel syndrome with both constipation and diarrhea: Code(s): K58.2 - Mixed irritable bowel syndrome Category: Medical Plan Shayne is working well, now has a trigger finger. Strange taste x 2 weeks like garbage, sometimes metallic had UTI recently with abx, suggest probiotic tic. She continues on her omeprazole 20 mg twice a day ROV 6 mos. Coding Level of Care Code Est Pt Level 3 (40711) Diagnoses GERD (gastroesophageal reflux disease) K21.9 Irritable bowel syndrome with both constipation and diarrhea K58.2
== END 2024-03-28 12:19 | disposition home or self-care (01) ==
PROVIDERS: PCP Internal Medicine; Visit Provider Nurse Practitioner
DX: K21.9 Gastro-esophageal reflux disease without esophagitis (principal); K58.2 Mixed irritable bowel syndrome
CPT/HCPCS: 99213

== ENCOUNTER → 2024-03-28 10:58 | Outpatient (BNVA) | payer MEDICARE, SELFPAY | PROVIDERS: PCP Internal Medicine; Visit Provider Nurse Practitioner | DX: K58.2 Mixed irritable bowel syndrome (principal); K21.9 Gastro-esophageal reflux disease without esophagitis; R14.0 Abdominal distension (gaseous); E66.3 Overweight; Z68.28 Body mass index [BMI] 28.0-28.9, adult | CPT/HCPCS: 99212 ==

== ENCOUNTER 2024-09-24 10:46 | Outpatient (AMB) | payer MEDICARE, SELFPAY ==
--- NOTE | 2024-09-24 10:55 | MHC.OFFVIS ---
Vital Signs 09/24/24 10:56 Height 5 ft 1 in Weight 161 lb 13.109 oz BMI 30.6 BP 116/66 Blood Pressure Location Lt brachial Position Sitting Pulse 106 H Pulse Source Pulse Oximeter Pulse Oximetry (%) 95 Oxygen Delivery Method Room Air Intake Visit Reasons: 6 mos FUV. Intake Note: Pt presents to the office today for a 6 month follow up. Allergies amoxicillin Allergy (Severe, Verified 09/24/24 10:56) Anaphylaxis citalopram [Celexa] Allergy (Severe, Verified 09/24/24 10:56) Anaphylaxis Sulfa (Sulfonamide Antibiotics) Allergy (Unknown, Verified 09/24/24 10:56) Unknown Fragrance Allergy (Severe, Uncoded 09/24/24 10:56) Anaphylaxis Fructose Allergy (Severe, Uncoded 09/24/24 10:56) Anaphylaxis Latex Allergy (Severe, Uncoded 09/24/24 10:56) Anaphylaxis Sulfacet-R Allergy (Severe, Uncoded 09/24/24 10:56) Anaphylaxis HPI HPI 6 mos FUV.: Details: Assessment & Plan (1) GERD (gastroesophageal reflux disease): Code(s): K21.9 - Gastro-esophageal reflux disease without esophagitis Category: Medical (2) Irritable bowel syndrome with both constipation and diarrhea: Code(s): K58.2 - Mixed irritable bowel syndrome Category: Medical Plan Shayne is working well, now has a trigger finger. Strange taste x 2 weeks like garbage, sometimes metallic had UTI recently with abx, suggest probiotic [employer]. She continues on her omeprazole 20 mg twice a day ROV 6 mos. TODAY'S VISIT The metallic taste resolved with the Sunshine, but it costs $30! However, she has developed N/V and lack of appetite over the past month. Coffee makes it worse. The only new medications are pilocarpine (could be a c/f- this is for dry mouth) and meloxicam, meclizine. It is somewhat better with drinking warm water for an hour or so. Her CIC has worsened as well. She is using glycerin supps with some help. She is also under a great deal of stress caring for her mother. She has used Miralax in the past with some success. She is also having insomnia. She will not sleep at night but only short naps during the day. 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 ROV next avail. [facility] Medical History Lack of appetite Food aversion Constipation Diarrhea Chronic nausea Uses hearing aid Hearing loss Insomnia Osteopenia Hypothyroidism Asthma Overweight (BMI 25.0-29.9) Surgical History History of esophagogastroduodenoscopy (EGD) Hx of colonoscopy Hx of breast reduction, elective History of intraocular lens implant History of dental samaritan Hx of appendectomy History of bladder suspension procedure Family History Father Colon cancer Mother Bone loss Blindness Brother Obesity Brother No problems noted. Sister No problems noted. Son No problems noted. Daughter No problems noted. Social History Alcohol intake: never Patient Tobacco Use Status: Never used Tobacco Review of Systems Const Denies fatigue, Denies fever(s), Denies night sweats, Denies poor appetite and Denies weight loss ENT Reports Normal hearing present, Denies dental pain, Denies dysphagia, Denies hearing loss, Denies mouth pain, Denies odynophagia, Denies throat swelling, Denies tongue swelling and Reports other (Dentition adequate) Card Reports no additional complaints Resp Reports no additional complaints GI Details: Denies abdominal pain, Denies melena, Denies bloating, Denies hematochezia, Reports constipation, Denies GI cramping, Denies dysphagia, Denies excessive flatus, Denies early satiety, Reports dyspepsia, Reports heartburn, Denies diarrhea, Reports nausea, Denies odynophagia, Denies vomiting and Denies hematemesis Musc Reports myalgias and Reports arthralgias Skin/Breast Denies pruritus, Denies lesions, Denies rash and Denies jaundice Neuro Reports Normal hearing present and Denies Abnormal speech present Psych Reports anxiety Endo Denies fatigue Aller/Immun Denies throat swelling and Denies tongue swelling Physical Exam Vital Signs: Last Vital Signs Pulse 106 H 05/07/25 10:56 BP 116/66 09/24/24 10:56 Pulse Ox 95 09/24/24 10:56 Oxygen Delivery Method Room Air 09/24/24 10:56 BMI result Body Mass Index 30.6 Const General: cooperative, no acute distress, well developed and well groomed Nutritional Appearance: well nourished and obese Orientation/consciousness: oriented to person, oriented to place and oriented to time Limitations: No language barrier HEENT Head: Yes normocephalic and Yes atraumatic Eyes General: appearance normal, both eyes and all related structures Pupils: Equal, round and reactive pupils present Neck Neck: Yes normal visual inspection and Yes no lymphadenopathy Thyroid: Thyroid normal Resp Effort & Inspection: normal respiratory effort and able to speak in complete sentences Auscultation: clear to auscultation bilaterally Cardio Rate: regular rate Rhythm: regular rhythm Heart sounds: Normal, physiologic split S2 sound present Peripheral pulses: radial pulses present and posterior tibial pulses present GI Inspection: No distended, No Abdominal panniculus present and Yes obesity Palpation (GI): Soft to palpation, nontender, no guarding, not rigid and No hepatosplenomegaly present Percussion: Yes normal to percussion Auscultation: normal bowel sounds Rectal Exam - Female: deferred Abdomen image: 1. Surgical scar Skin General skin exam: no rashes or lesions noted, turgor normal, skin not dry, no jaundice, No spider nevi and no striae Rashes: no rashes Nails: normal Neuro General: oriented to person, oriented to place and oriented to time Cranial nerves: Yes Equal, round and reactive pupils present and Yes Normal hearing present Speech: No Abnormal speech present Extrem General: Yes normal to inspection, No clubbing, No cyanosis and No edema Psych Appearance: grossly normal and well kempt Mental Status: mental status grossly normal Speech and movement: Normal speech and movement present Affect: normal affect Attitude: cooperative Thought process: Normal thought process present and not confabulating Thought content: Normal thought content present Insight: Fair insight present (Psych) Judgement: Fair judgement present (Psych) Assessment & Plan Assessment & Plan (1) GERD (gastroesophageal reflux disease): Code(s): K21.9 - Gastro-esophageal reflux disease without esophagitis Category: Medical (2) Abdominal bloating: Code(s): R14.0 - Abdominal distension (gaseous) Category: Medical (3) Irritable bowel syndrome with both constipation and diarrhea: Code(s): K58.2 - Mixed irritable bowel syndrome Category: Medical (4) Tubular adenoma of colon: Comment: 2013 [facility]=TA, 2020 [facility]=TA repeat 5 years aeb Code(s): D12.6 - Benign neoplasm of colon, unspecified Category: Medical (5) Pre-op examination: Code(s): Z01.818 - Encounter for other preprocedural examination Category: Medical Plan The metallic taste resolved with the Sunshine, but it costs $30! However, she has developed N/V and lack of appetite over the past month. Coffee makes it worse. The only new medications are pilocarpine (could be a c/f- this is for dry mouth) and meloxicam, meclizine. It is somewhat better with drinking warm water for an hour or so. She also has a associated severe acid reflux despite taking her omeprazole 20 mg twice a day. Her CIC has worsened as well. She is using glycerin supps with some help. She is also under a great deal of stress caring for her mother. She has used Miralax in the past with some success. She is also having insomnia. She will not sleep at night but only short naps during the day. 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 We discussed a possible trial of mirtazapine but she declines for now. Her problem is that she just isn't tired. If she does feel tired than she will be able to sleep but otherwise she will lay in bed without being able to initiate sleep. Overall she feels that she is not getting enough sleep with compensatory napping. She is taking low-dose Wellbutrin which is rather activating. Overall, I think that this is probably chronic recurring problem triggered by psychogenic factors. However the constipation could be contributing as well as medication side effects. I think that getting an EGD is prudent since she has not had 1 in greater than 10 years. Since her heartburn has been worsening I think we should also increase her omeprazole to 40 mg twice a day. We discussed the fact that meloxicam could be a driving factor because even though it is a less agree just offender of the NSAIDs it is still can cause gastric upset. I will also recommend that she start using MiraLax to get her bowels moving better. I think she can stop the probiotic unless she finds a metallic taste returns upon cessation. Additional testing may be considered depending on her response to these interventions, I should probably refresh her labs since she has not had any since 2022. At that time she had an elevated alk-phos and according to her history she still has gallbladder which is another thing to consider as a potential contributing factor. ROV next avail. Orders: Orders EGD - GI Use Only Today K21.9 - Gastro-esophageal reflux disease without esophagitis Medications: New polyethylene glycol 3350 (Miralax) 17 grams PO .qhs 30 days 119 grams 6RF K58.2 - Mixed irritable bowel syndrome omeprazole 40 mg PO BID 30 days 60 caps 6RF Refilled [id number] 24,000-76,000 -120,000 unit (Creon) administer with meals and/or snacks 1 cap PO QID 30 days 120 caps 6RF K58.2 - Mixed irritable bowel syndrome Discontinued omeprazole Discontinued Reason: Doctor's Order 20 mg PO BID 180 caps 2RF E66.3 - Overweight, K21.9 - Gastro-esophageal reflux disease without esophagitis Coding Level of Care Code Est Pt Level 4 (77517) Diagnoses GERD (gastroesophageal reflux disease) K21.9 Abdominal bloating R14.0 Irritable bowel syndrome with both constipation and diarrhea K58.2 Tubular adenoma of colon D12.6 Pre-op examination Z01.818 Time Spent (min) 36
[2024-09-24 10:56] VITALS: BP 116/66; PULSE 106; O2SAT 95; BMI 30.6
--- OUTSIDE RECORDS SUMMARY | 2024-09-24 12:07 | XMS_ITS | Patient Health Record ---
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 Name Role Phone Franky Estevez Primary Care Provider Pan Patterson [phone] Allergies Allergen (clinical drug ingredient) Drug/Non Drug Allergy documented on EMR Reaction Allergy Type Onset Date Status citalopram Celexa Unknown Drug Allergy Active amoxicillin Amoxicillin Unknown Drug Allergy Act harika Fragrance (uncoded) Unknown Allergy Active latex/natural rubber (uncoded) Unknown Allergy Active Substance with sulfonamide structure and antibacterial mechanism of action (substance) Sulfa (uncoded) Unknown Allergy Active Fructose Unknown Drug Allergy Active Reason For Referral No Information Medications Medication SIG (Take, Route, Frequency, Duration) Notes Start Date End Date Status Omeprazole 20 MG 1 Orally BID Active Atorvastatin Calcium Active Liothyronine Sodium Active Montelukast Sodium A ctive Sertraline HCl Activ e Vitamin D 25 MCG (1000 UT) 1 tablet Oral ly Once a day for 30 day(s) Active Vitamin C 500 MG as directed Orally Active Probiotic - as directed Orally Active Vitamin A Active Levothyroxine Sodium Active Albuterol Sulfate HFA Active Problems Problem Type SNOMED Code ICD Code Onset Dates Problem Status W/U Status Risk Notes Problem [id number] History of colon polyps (Z86.010) Active confirmed Problem [id number] Gastroesophageal reflux disease, esophagitis presence not specified (K21.9) Active confirmed Problem [id number] Family history o f colon cancer (Z80.0) Active confirmed Problem [id number] Irritable bowel syndrome with both constipation and diarrhea (K58.2) Active confirmed Plan Of Treatment No Information Insurance Providers Payer Name Payer Address Payer Phone Subscriber Number Group Number Insured Name Patient Relationship to Insured Coverage Start Date Coverage End Date MEDICARE OF [place] [address] [place] [id number] [phone] [id number] DAVIDESTELITALISSY DURHAMNE Self - patient is the insured [employer] ATT[employer] CLAIMS [address] [place] [address] [phone] [id number] NGALISSY DURHAMNE Self - patient is the insured Medical (General) History Medical History History ICD Code Asthma Hypothyroidism Hyperlipidemia GERD--previous EGD with Dr. Becker Anxiety Hx of colon polyps-1 colonos copy with a previous GI MD and [address] 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
--- OUTSIDE RECORDS SUMMARY | 2024-09-24 12:07 | XMS_ITS | Data Portability ---
Author Organization [facility] Address [address] [place] [address] Assessment No assessment recorded. Plan of Treatment Reminders Order Date Submit Date Provider Last Modified By Organization Details Last Modified Time Details Appointments FOLLOW UP 15 2024 02:45P M DR BRUNO Not available Not available Not available ANNUAL EXAM 2024 01:30P M VINAY QUEZADA Not available Not available Not available Lab lipid panel, blood 2023 [facility], [address] [place] [address], [id number], 04/15/2024 16:18:51 CMP, serum or plasma 2023 [facility], [address] [place] [address], [id number], 04/15/2024 16:18:51 CBC w/ auto diff 2023 [facility], [address] [place] [address], [id number], 04/15/2024 16:18:51 TSH + free T4, serum 2023 [facility], [address] [place] [address], [address], 04/15/2024 16:18:51 urinalysi s complete, reflex culture 2023 [facility], [address] [place] [address], [address], 03/04/2024 18:44:40 urinalysi s, dipstick 2023 024 [facility], [address] [facility], [address], [place], [address], 03/04/2024 11:40:43 Referral hand surgeon referral 2023 024 lester Collazo MD, [address] [place] [address], [address], 11/06/2023 08:36:54 Procedures None recorded. Surgeries None recorded. Imaging None recorded. Medication Orders meloxicam 15 mg tablet 2024 025 [facility]armacy #2024, [address] [place], [address], 08/20/2024 14:27:01 ciproflox acin 250 mg tablet 2023 024 [facility] [address] [place], [address], 04/15/2024 15:36:57 meclizine 25 mg tablet 2023 024 [facility]armacy #2024, [address] [place] [address], [address], 11/05/2023 11:52:12 meloxicam 15 mg tablet 2023 024 [facility]acy #2024, [address] [place], [address], 04/15/2024 16:09:25 ProAir HFA 90 mcg/actua tion aerosol inhaler 2022 023 [facility] #2024, [address] [place] [address], [address], 10/13/2022 15:09:18 Patient TargetsNo targets recorded. Patient InstructionsNo instructions recorded. Reason for Referral Hand Surgeon Referral for Ac quired trigger finger of right ring finger right ring finger trigger finger Referring Physician: Gabi Tryba, Internal Medicine, Encounter Date: 11/05/2023 Results Created Date Observation Date Name Description Value Unit Range Abnormal Flag Note LastModifiedBy Organization Detail LastModifiedTime 03/04/2003/04/2024 urina lysis , dipst ick Leukocytes Large Not Available [facility] [address] [facility] [address], [place], [address], 03/04/2024 11:30:55 03/04/2003/04/2024 urina lysis , dipst ick Nitrite negati ve Not Available [facility] [address], [place], [address], 03/04/2024 11:30:55 03/04/2003/04/2024 urina lysis , dipst ick Urobilinogen .2 Not Available [facility] [address] [facility], [place], [address], 03/04/2024 11:30:55 03/04/2003/04/2024 urina lysis , dipst ick Protein 100 Not Available [facility] [address] [facility], [place], [address], 03/04/2024 11:30:55 03/04/2003/04/2024 urina lysis , dipst ick pH 6.0 Not Available [facility] [address] [facility], [place], [address], 03/04/2024 11:30:55 03/04/2003/04/2024 urina lysis , dipst ick Blood Large Not Available [facility] [address] [facility] [address], [place], [address], 03/04/2024 11:30:55 03/04/2003/04/2024 urina lysis , dipst ick Specific Milan 1.020 Not Available [facility] [address] [facility], [place], [address], 03/04/2024 11:30:55 03/04/2003/04/2024 urina lysis , dipst ick Ketone Negati ve Not Available [facility] [address] [facility] [address], [place], [address], 03/04/2024 11:30:55 03/04/2003/04/2024 urina lysis , dipst ick Bilirubin Negati ve Not Available [facility] [address] [facility] [address], [place], [address], 03/04/2024 11:30:55 03/04/2003/04/2024 urina lysis , dipst ick Glucose Negati ve Not Available [facility] [address] [facility] [address], [place], [address], 03/04/2024 11:30:55 03/04/2003/04/2024 urina lysis , dipst ick Appearance Slight ly Cloudy Not Available [facility] [address] [facility] [address], [place], [address], 03/04/2024 11:30:55 03/04/2003/04/2024 urina lysis , dipst ick Color Yellow Not Available [facility] [address] [facility] [address], [place], [address], 03/04/2024 11:30:55 10/24/19 23 10/23/2022 XR, chest , 2 view No observ ation record ed. [email or web address] [facility] [address] [facility] [address], [place], [address], 10/24/2022 08:47:03 11/10/19 23 11/08/2022 bone densi ty No observ ation record ed. [email or web address] [facility] (Mammo) [address] [place], [address], 11/10/2022 11:45:45 03/14/2002/20/2023 sleep study , diagn ostic (PROC ) No observ ation record ed. [facility] [address] [place], [address], 03/14/2023 12:04:09 Result Notes None recorded. Problems Name Problem SNOMED Code Status Onset Date Resolution Date Notes Provider Name and Address Organization Details Recorded Time Mild intermit tent asthma 867093833 Active 2018 SALO Bar [address] [place], [address], [facility] [place] 9 10:41:12 Moderate recurren t major depressi on 98398153 Active 2018 SALO Bar [address] [place], [address], [facility] [place] 9 10:42:07 Pain in throat 823518966 Active 2021 VINAY QUEZADA [address] [place] [address], [address], [facility] [place] 2 14:07:49 Cough 64889405 Active 2021 VINAY QUEZADA [address] [place] [address], [address], [facility] [place] 2 14:08:06 Taste sense altered 221068178 Active 2021 VINAY QUEZADA [address] [place] [address], [address], [facility] [place] 2 12:27:03 Otalgia of right ear 8054091294 Active 2021 could be migraine with her symptoms VINAY QUEZADA [address] [place] [address], [address], [facility] [place] 3 14:55:24 Dysuria 22481235 Active 2021 VINAY QUEZADA [address] [place] [address] [place], [address], [facility] [place] operated [facility] 2 12:08:21 Xerostom ia 19696873 Active 2022 VINAY QUEZADA [address] [place] [address], [address], [facility] [place] 3 11:52:19 Anxiety 29690677 Active 2022 VINAY QUEZADA [address] [place], [address], [facility] [place] 3 16:45:11 Sleep apnea 43424317 Active 2022 VINAY QUEZADA [address] [place] [address], [address], [facility] [place] 3 11:46:14 Vertigo 330961043 Active 2022 Franky Bruno DO [address] [place] [address], [address], [facility] [place] 3 10:37:28 Recurren t labyrint hitis 671398151 Active 2022 Franky Bruno DO [address] [place] [address], [address], [facility] [place] 3 22:23:24 Acute urinary tract infectio n 542546820 Active 2023 VINAY QUEZADA [address] [place] [address], [address], [facility] [place] 4 12:03:47 Acquired trigger finger of right ring finger 7426645033 87871 Active 2023 VINAY QUEZADA [address] [place] [address], [address], [facility] [place] 4 11:43:57 Depressi ve disorder 82073043 Active 2023 VINAY QUEZADA [address] [place] [address], [address], [facility] [place] 4 11:53:05 Asthma 176203159 Active 2023 VINAY QUEZADA [address] [place], [address], [facility] [place] 4 12:06:17 Tendinit is of right biceps femoris Active 2024 VINAY QUEZADA [address] [place], [address], [facility] [place] operated [facility] 5 14:24:17 Biceps tendinit is 969866008 Active 2024 VINAY QUEZADA [address] [place], [address], [facility] [place] 5 14:26:18 Biceps tendinit is 642970139 Active 2024 VINAY QUEZADA [address] [place], [address], [facility] [place] 5 14:26:25 Disorder of urinary bladder 15094937 [facility] 08:34:35 Asthma 062235849 Completed 201702/17/2019 VINAY QUEZADA [address] [place], [address], [facility] 4 12:06:17 Hypothyr oidism 40487610 Active 2017 Naila meza [facility] 8 08:34:55 Gastroes ophageal reflux disease 208966904 Active 2017 Naila meza [facility] 8 08:36:01 Hypercho lesterol emia 99103648 Active 2017 Naila meza [facility] 8 08:37:16 Insomnia 107000829 Active 2017 Naila meza [facility] 8 08:37:25 Esophagi tis 69144905 Active 2017 [facility] 08:37:36 Gastriti s 6846159 Active 2017 [facility] 8 08:37:46 Hiatal hernia 12585735 Active 2017 [facility] 8 08:38:00 Osteopen ia 850263360 Active 2017 Franky Bruno, DO [address] [facility], [place], [address], [facility] 8 12:32:20 Problem Notes None recorded. Procedures Surgical History None recorded. Imaging Results Imaging Date Name Status LastModified by Organiz ation Details LastModified Time 10/23/2022 XR, chest, 2 view completed [email or web address] [facility] [address] [facility] [address], [place], [address], 10/24/2022 08:47:03 11/08/2022 bone density completed [facility] (Mammo) [address] [place], [address], 11/10/2022 11:45:45 02/20/2023 sleep study, diagnostic (PROC) completed [facility] [address] [place] [address], [address], 03/14/2023 12:04:09 Procedure Notes None recorded. Medical Equipment None Reported. Allergies Allergen ID Allergen Name Allergen Category Reaction Reaction Severity Criticality Documentation Date Start Date Code Code System Note Provider Name and Address Organization Details Recorded Time 1419 amoxicill in medicatio n Not available Not available Not available 10/09/2017 723 [facility] 08:33[facility]50 1420 Celexa medicatio n Not available Not available Not available 10/09/2017 41078 8 [facility] 8 08:34:02 1421 Bactrim medicatio n Not available Not available Not available 10/09/2017 62781 9 RxNorm Naila Igel susana, [facility] 8 08:34:11 1422 latex environme nt,medica tion Not available Not available Not available 10/09/2017 61259 91 RxNorm Naila Igel susana, [facility] 8 08:34:21 3935 fructose food,medi cation Not available Not available Not available 11/18/2019 4570 RxNorm stoma ch issue s Madyson meza, [facility] 0 09:48:44 Medications Name Sig Start Date Stop Date Status Note LastModified by Organization Details LastModified Time pilocarpine 5 mg tablet TAKE 1 TABLET BY MOUTH EVERY DAY active Not Available Not Available No t Available nystatin 100,000 unit/mL oral suspension 10/09 completed Not Available Not Available Not Available atorvastati n 10 mg tablet TAKE 1 TABLET DAILY active Not Available Not Available No t Available azithromyci n 250 mg tablet TAKE 2 TABLETS BY MOUTH TODAY, THEN TAKE 1 TABLET DAILY FOR 4 DAYS 11/10 completed Not Available Not Available Not Available Lidocaine Viscous 2 % mucosal solution Take 15 mL every 3 hours by oral route as needed for 7 days. 2021 active Not Available Not Available Not Avai lable fluconazole 150 mg tablet Take 1 tablet by oral route. 12/21 completed Not Available Not Available Not Available liothyronin e 25 mcg tablet TAKE 1 TABLET ONCE DAILY active Not Available Not Available No t Available ondansetron HCl 8 mg tablet TAKE 1 TABLET BY MOUTH TWICE A DAY NEEDED FOR 7 DAYS 11/04 completed Not Available Not Available Not Available meloxicam 15 mg tablet TAKE 1 TABLET BY MOUTH ONCE EVERY DAY WITH A MEAL 2024 active Not Available Not Available Not Avai lable prednisone 20 mg tablet 12/21 completed Not Available Not Available Not Available sertraline 100 mg tablet TAKE 1 TABLET DAILY active Not Available Not Available No t Available ciprofloxac in 250 mg tablet TAKE 1 TABLET BY MOUTH EVERY 12 HOURS FOR 5 DAYS 04/15 completed Not Available Not Available Not Available levofloxaci n 250 mg tablet Take 1 tablet every day by oral route for 5 days. 09/06 completed Not Available Not Available Not Available ciprofloxac in 500 mg tablet TAKE 1 TABLET BY MOUTH EVERY 12 HOURS FOR 5 DAYS 11/04 completed Not Available Not Available Not Available triamcinolo ne acetonide 0.1 % topical cream APPLY THIN COAT TO AFFECTED AREA TWICE A DAY 04/25 completed Not Available Not Available Not Available levothyroxi ne 75 mcg tablet 1 po qd 11/17 completed Not Available Not Available Not Available ketorolac 0.5 % eye drops INSTILL 1 DROP IN LEFT EYE THREE TIMES A DAY FOR 3 WEEKS FOLLOWING SURGERY 04/15 completed Not Available Not Available Not Available meclizine 25 mg tablet TAKE 1 TABLET BY MOUTH THREE TIMES A DAY NEEDED active Not Available Not Available No t Available levothyroxi ne 50 mcg tablet TAKE 1 TABLET DAILY active Not Available Not Available No t Available ranitidine 300 mg capsule 10/09 completed Not Available Not Available Not Available omeprazole 20 mg capsule,del ayed release TAKE 1 CAPSULE BY MOUTH TWICE A DAY active Not Available Not Available No t Available montelukast 10 mg tablet TAKE 1 TABLET ONCE DAILY active Not Available Not Available No t Available 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 active Not Available Not Available No t Available albuterol sulfate HFA 90 mcg/actuati on aerosol inhaler INHALE 2 PUFFS INTO THE LUNGS EVERY 4 HOURS NEEDED FOR 30 DAYS active Not Available Not Available No t Available ondansetron 4 mg disintegrat ing tablet PLACE 1 TABLET EVERY 8 HOURS BY ORAL ROUTE NEEDED FOR 7 DAYS. 10/13 completed Not Available Not Available Not Available naproxen 500 mg tablet PLEASE SEE ATTACHED FOR DETAILED DIRECTION S 11/04 completed Not Available Not Available Not Available bupropion HCl XL 150 mg 24 hr tablet, extended release TAKE 1 TABLET BY MOUTH DAILY active Not Available Not Available No t Available nitrofurant oin monohydrate /macrocryst als 100 mg capsule TAKE 1 CAPSULE BY MOUTH TWICE A DAY FOR 5 DAYS 06/09 completed Not Available Not Available Not Available vitamin A bid active Not Available Not Gloria ilable Not Available Vitamin D 400 units with calcium 600mg bid active Not Available Not Available No t Available Creon 24,000-76,0 00-120,000 unit capsule,del ayed release TAKE 1 CAPSULE BY MOUTH FOUR TIMES A DAY ADMINISTE R WITH MEALS AND/OR SNACKS active Not Available Not Available No t Available Probiotic 04/15 completed Not Available Not Available Not Available Vitamin B-1 (mononitrat e) 100 mg tablet TAKE 1 TABLET BY MOUTH EVERY DAY *OTC NT CVD* active Not Available Not Available No t Available Vitals Date Recorded Body height Body mass index (BMI) Body weight Oxygen saturation Oxygen saturation in Arterial blood by Pulse oximetry Heart rate Systolic blood pressure Diastolic blood pressure Provider Name and Address Organization Details Last Updated DateTime 3 156.21 cm 27.9 kg/m2 70112.8 6 g 98 % 98 % 79 /min 110 mm[Hg] 80 mm[Hg] Kisha Aldridge [facility] 3 14:20:58 Date Recorded Body height Body mass index (BMI) Body weight Heart rate Oxygen saturation Oxygen saturation in Arterial blood by Pulse oximetry Systolic blood pressure Diastolic blood pressure Provider Name and Address Organization Details Last Updated DateTime 4 154.94 cm 30.2 kg/m2 63241.7 8 g 89 /min 96 % 96 % 112 mm[Hg] 60 mm[Hg] Kisha Aldridge [facility] 4 11:27:41 Date Recorded Body height Body mass index (BMI) Body weight Heart rate Oxygen saturation Oxygen saturation in Arterial blood by Pulse oximetry Systolic blood pressure Diastolic blood pressure Provider Name and Address Organization Details Last Updated DateTime 4 154.94 cm 30.9 kg/m2 68491.9 9 g 87 /min 96 % 96 % 120 mm[Hg] 74 mm[Hg] Junie Saleem [facility] 4 11:39:20 Date Recorded Body height Body mass index (BMI) Body weight Heart rate Oxygen saturation Oxygen saturation in Arterial blood by Pulse oximetry Systolic blood pressure Diastolic blood pressure Provider Name and Address Organization Details Last Updated DateTime 4 154.94 cm 30.5 kg/m2 29121.5 3 g 89 /min 95 % 95 % 138 mm[Hg] 88 mm[Hg] Junie Saleem [facility] 4 15:48:30 Date Recorded Body height Body mass index (BMI) Body weight Heart rate Oxygen saturation Oxygen saturation in Arterial blood by Pulse oximetry Systolic blood pressure Diastolic blood pressure Provider Name and Address Organization Details Last Updated DateTime 5 154.94 cm 30.4 kg/m2 11464.3 7 g 88 /min 98 % 98 % 128 mm[Hg] 88 mm[Hg] Kisha Armandomond [facility] 5 14:02:59 Social History Question Answer Notes LastModified by Organizat ion Details LastModified Time Tobacco Smoking Status Never Smoker Not Available [facility] 03/23/2020 03:36:24 What Was The Date Of Your Most Recent Tobacco Screening? 08/20/2024 [email or web address] Information not available 08/20/2024 Do You Or Have You Ever Used Any Other Forms Of Tobacco Or Nicotine? No [email or web address] Information not available 11/05/2023 Sex: Unknown Functional Status None recorded. Mental Status None recorded. Family History Nothing Reported. Medical History No medical history recorded. Gynecological HistoryNo gynecological history recorded. Obstetrics History GPAL:G 0 P 0 0 0 0 Immunizations Vaccine Type Date Status Note Provider Nam e and Address Organization Details Recorded Time Influenza, split virus, quadrivalent, preservative 1 completed Molly meza [facility] 09/20/2021 12:09:47 influenza nasal, unspecified formulation 4 completed Franky Bruno DO [address] [place] [address], [address], [facility] [place] 02/10/2024 19:03:55 SARS-COV-2 (COVID-19) vaccine, UNSPECIFIED 4 completed Franky Bruno DO [address] [place] [address], [address], [facility] [place] 02/10/2024 19:04:03 Influenza, split virus, quadrivalent, preservative 9 completed Madyson meza [facility] 11/18/2019 09:45:35 Influenza, split virus, quadrivalent, preservative 0 [facility] 07/12/2020 15:15:23 COVID-19, mRNA, LNP-S, PF, 30 mcg/0.3 mL dose 1 completed Franky Bruno [address], [address], [facility] [place] 09/14/2020 14:09:56 COVID-19, mRNA, LNP-S, PF, 30 mcg/0.3 mL dose 1 completed Franky Bruno [address], [address], [facility] 09/14/2020 14:10:11 Past Encounters Encounter ID Performer Location Encounter Start Date Encounter Closed Date Diagnosis/Indication Diagnosis SNOMED-CT Code Diagnosis ICD10 Code Diagnosis Note [id number] [address],[place] [address] 10/09/2017 12:11:32 10/09/2017 12:44:23 Osteopenia 093243800 M85.9 needs labwork and referral to endocrine Candidiasis of mouth 797 10674 B37.0 thrush , oral will tx with diflucan po and use and refer if returns [id number] Franky Bruno [address],[place] [address] 11/12/2017 15:16:56 11/12/2017 16:37:25 Dysuria 53670014 R30.0 Urinary tr act infectious disease 93682461 N39.0 Painful ur ging to urinate 59518899 R30.0 Hypothyroidism 65827492 E03.9 stable, reviewed labs [id number] Franky Bruno [facility] [address] [place] [address],[place] [address] 12/21/2017 14:25:45 12/21/2017 15:47:47 Gastroesophageal reflux disease 899101221 K21.9 still very problemati c at times stops her from eating takes two omeprazole daily Hypothyroidism 26569655 E03.9 noted jump in tsh to 3.37 from 0.3 Hypercholesterolemia 136 04493 E78.00 last lab is excellent with good ldl and hdl Hernia of abdominal wall 388065884 K43.6 pt will call plastic surgeon from [facility] and will have an eval of her abdominal wall Asthma 371129637 J45.90 9 has required use of albuterol and has had some breakthrou gh needing treatment [id number] Franky Bruno [facility] [address] [place] [address] 05/06/2018 13:40:25 05/06/2018 14:10:59 Impingement syndrome of right shoulder region 3574052022 53341 M75.41 Hypothyroidism 46185642 E03.9 [id number] Franky Bruno [facility] [address] [address] 07/15/2018 14:57:20 07/15/2018 15:32:23 Pre-surgery evaluation 252538362 Z01.818 patient is seen and evaluated for pre operative risk assessment for the proposed cataract surgery Her preop risk category is low and she is certainly cleared for the surgery under current KALIE guidelines patient understand s to take her meds on the day of her procedure and needs to withhold her naproxen now. [id number] Franky Bruno [facility] [address] [address] 02/17/2019 10:09:51 02/17/2019 10:47:48 Acute cystitis 36746415 N30.01 Gastroesop hageal reflux disease 476768769 K21.9 stable with meds Moderate r ecurrent major depression 08008645 F33.1 stable with meds [id number] Franky Bruno [facility] [address] [address] 11/18/2019 09:41:57 11/18/2019 10:17:23 Acute otitis media 6659263 H66.91 will treat ear infection patient is told to avoid using hearing aid until infection clears [id number] Franky Bruno [facility] [address] [facility] [facility] [place] [address] 12/08/2019 11:29:09 12/08/2019 12:36:01 Mild intermittent asthma 961663190 J45.20 Has been well controlled with current treatment Seasonal allergy 6936287 04 J30.2 Sore throat in AM Recc OTC flonase at bedtime Xerostomia 75814108 R68. 2 Rec OTC dry mouth solutions Likely medication s related Uses nightime mouthguard Moderate r ecurrent major depression [id number] F33.1 Seems to be getting a little worse Hiatal hernia 34487433 K 44.9 Would like referral to new GI Hypercholesterolemia 136 56201 E78.00 LDL 138 HDL 48 Gastritis 7474045 K29.70 gerd , and esophagiti s, will need new GI specialist to follow her Body mass index 25-29 - overweight 748002949 Z68.29 will refer to [facility] [id number] Franky Bruno [facility] Internal Medicine [address], [place] [address] 07/12/2020 15:06:23 07/12/2020 15:57:59 Mild intermittent asthma 443938706 J45.20 Has been well controlled with current treatment Hypothyroidism 21599338 E03.9 prior noted jump in tsh to 3.37 from 0.3 will be rechecking lab Hypercholesterolemia 136 87872 E78.00 LDL 138 HDL 48 will cont current dose of atorvastat in and follow Hepatitis C screening 41 3414032 Z11.59 next lab Dysfunctio n of right eustachian tube [id number] 052956 H69.91 to try sudafed Jaw pain 839159860 R68.8 4 could this be her eustachian tube dysfunctio n ? she has a mouth guard that she is not wearing... ... or just eustachian tube dysfun.. [id number] Franky Bruno [facility] Internal Medicine [address],[place] [address] 09/14/2020 14:03:29 09/14/2020 14:50:42 Hearing loss 12590187 H91.91 in meantime will try the flonase diamante [id number] Franky Bruno [facility] Internal Medicine [address], [place] [address] 10/27/2020 10:21:34 10/27/2020 11:19:09 Dysfunction of right eustachian tube 7069252558 367842 H68.001 the patient most likely has a Eustachian [place]ctio n [id number] Franky Bruno [facility] Internal Medicine [address],[place] [address] 02/18/2021 08:16:34 02/18/2021 16:43:14 Moderate recurrent major depression 98151874 F33.1 Seems to be getting a little worse Hypothyroidism 04172941 E03.9 prior notedtsh 0.6 Hypercholesterolemia 136 97089 E78.00 LDL 108 was 138 HDL now 53 was 48 will cont current dose of atorvastat in and follow Gastroesop hageal reflux disease 543559590 K21.9 seems to be stabletake s two omeprazole daily Generalized rash 8180136 06 R21 to use sparingly [id number] Franky Bruno [facility] Internal [address],[place] [address] 04/25/2021 11:32:05 04/25/2021 15:57:53 Dysuria 26859059 R30.9 will start her on abxand send her urine out for culture [id number] Franky Bruno [facility] Internal [facility] [address], [place] [address] 09/06/2021 09:22:24 09/06/2021 16:27:14 Fever with chills 866975954 R50.81 continue on APAP Cough 16636365 R05.1 mild, can use OTC meds Pain in throat 084029801 R07.0 start on medrol, z chiki and lidocaine for symptom treatment [id number] Franky Bruno [facility] Internal Medicine [address], [place] [address] 09/20/2021 11:59:52 09/23/2021 12:30:58 Taste sense altered 767739843 R43.2 possible combinatio ns of things Otalgia of right ear 511 3193901 H92.01 sees ENT [id number] Franky Bruno [facility] Internal Medicine [address], [place] [address] 06/09/2022 11:20:21 06/09/2022 12:18:05 Dysuria 66009250 R30.9 will start her on abxand send her urine out for culture Osteopenia 227017416 M85 .80 need recheck bone density as wellthe patient has a loss of bone in her teethwill recheck her values Hypercholesterolemia 136 49583 E78.2 will recheck lab work Hypothyroidism 41023774 E03.8 will set up with recheck BW Abdominal pain 25893161 R10.31 will set up with US abd/pelvis Xerostomia 14006166 K11. 7 suggested by dental hygienist Nausea 688783330 R11.0 [id number] Franky Bruno [facility] Internal Medicine [address], [address] [facility] [place] [address] 10/13/2022 14:10:03 10/13/2022 15:57:08 Pre-surgery evaluation 410214307 Z01.818 The patient was seen in the office today for pre-op evaluation . All medical conditions on patient's problem list were addressed and are currently stable, no interventi on needed at this time. Based on history and physical performed, the patient is cleared for surgery. Mild inter mittent asthma 637358978 J45.20 needs refill [id number] Franky Bruno [facility] Internal Medicine [address], [address] [facility] [place] [address] 11/05/2023 11:15:46 11/05/2023 12:01:27 Depression screening 423369764 Z13.31 0 Acquired t loft rigger finger of right ring finger 0433542704 36938 M65.341 agreed to hand surgeon in case it does not improveagr eed to conservati ve therapy Vertigo 526104981 R42 continue on meclizine everyday for vertigo since there is no other causes for it and PT was ineffectiv e Depressive disorder 3548 9007 F32.1 stable Anxiety 02938532 F41.1 [place] 7 0 Asthma 066451944 J45.20 stable [id number] Franky Bruno [facility] Internal Medicine [address] [facility] [address],[place] [address] 03/04/2024 11:28:02 03/04/2024 11:56:44 Acute urinary tract infection 336170441 N39.0 start on ciprofloxa chitra [id number] [facility] [address] [facility] [address],[place] [address] 04/15/2024 15:35:11 04/15/2024 16:19:25 Sleep apnea 67044837 G47.33 stable Vertigo 431076052 R42 continue on meclizine everyday for vertigo since there is no other causes for it and PT was ineffectiv e 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 Hypothyroidism 18007587 E03.8 will set up with recheck BW Hypercholesterolemia 136 04947 E78.2 will recheck [id number] [facility] [address] [facility] [address],[place] [address] 08/20/2024 13:57:13 08/20/2024 14:43:12 Biceps tendinitis 335199177 M75.21 two weeks of ice, rest and meloxicam, report back after two weeks to update Health Concerns Section Related Observation LastModified by Organization Detai ls LastModified Time None Recorded Concern Status LastModified by Organization Details LastModified Time None Recorded Advance Directives Directive None Recorded Payers Encounter Date Sequence Insurance Name Policy Number Policy Samuel Covered Member ID Samuel Member ID Guarantor Name 10/13/2022 2 [place] [id number] Alesia Manjarrez [id number] Alesia Manjarrez 10/13/2022 1 [place] [employer] Alesia Manjarrez [id number] Alesia Manjarrez 11/05/2023 2 [place] [id number] Alesia Thouin [id number] Alesia Thouin 11/05/2023 1 [place] Alesia A Thouin [id number] 06 [id number] Alesia Thouin 03/04/2024 2 [place] [id number] Alesia Thouin [id number] Alesia Thouin 03/04/2024 1 [place] Alesia A Thouin [id number] Alesia Thouin 04/15/2024 2 [place] [id number] Alesia Thouin [id number] Alesia Thouin 04/15/2024 1 [place] Alesia A Thouin [id number] 06 [id number] Alesia Thouin 08/20/2024 2 [place] [id number] Alesia Thouin [id number] Alesia Thouin 08/20/2024 1 [place] [employer] Alesia A Thouin [id number] 06 [id number] Alesia Thouin Notes Date Note Type Note Provider Name and Address Organization Details Recorded Time 3 text/html Pre-OpReported bypatient.Surgery to be Performed:left eye cataract surgery with Dr. Lopez Context/Condition Being Addressed:cataract Location:left eye Risk Factorsno cognitive impairment; no functional impairment; no malnutrition; no frailty; able to climb a flight of stairs (exercise capacity>4 METS); no obstructive sleep apnea; non-smoker; no alcohol misuse; no illicit drug use; no chronic cardiopulmonary condition; not obese Anesthesia hx:no hx of anesthesia complications; no allergy to anesthetic agents; no family history of anesthesia complications Functional Ability:able to walk up stairs; able to perform heavy work around the house; no difficulty walking up hills; able to walk 4 mph Post-Op Support:adequate assistance at home () VINAY QUEZADA [address] [place] [address], [address], [facility], [place], operated by [facility] 10/13/2022 15:10:22 4 text/html c/o vertigo and trigger finger the patient reports that she developed trigger finger in the right ring fingerthe patient developed about 2 weeks ago, the patient reports that she is right hand dominant and uses it to write a lotdiscussed treatment plans, suggested starting conservatively with ice and an NSAID to help with the inflammationpatient agreedwill also put in a hand specialist referral in case it does not improve still having vertigo, has seen ENT and PT, no improvement or other causes besides positional changesdoes well with meclizine, no drowsiness, will just have her continue to use that which she does to good effect, just needs refill depression stable, on sertralinetold her to hold bupropion as she had concerns about the medications she is takingher anxiety was related to her job, has been retired since agreed to try off of it to see if she needs it anymore, if not she will continue off of it asthma is stable VINAY QUEZADA [address] [place], [address], [facility], [place], operated by [facility] 11/05/2023 12:07:21 4 text/html c/o acute UTI symptoms the patient reports that she is having a week of burning, frequency of urinationthe patient has blood and WBC's in her urine samplewill start on cipro for the next 5 days and send out her urine to check for any resistant form of bacteriawill adjust of needed the patient denies fever, chills, or back pain VINAY QUEZADA [address] [place], [address], [facility], [place], operated by [facility] 03/04/2024 11:53:39 4 text/html f/u routine the patient reports she is doing wellhas not having any issues with frequency or residual burningsometimes doesn't feel like she is emptying her bladder completelydoes have a hx of the bladder sling the patient reports overall she is doing well the meloxicam helped her trigger finger left ring fingerno more triggering or stickingcan have her hold the med see if it happens again, if it does she would like to pursue injections, will call if she needs that referral the patient is having difficulties with the balance, but her gait has improved the patient is using drinking prune juice which has been helpful with the dryness and the constipation the CPAP works great, getting new parts for it due to a leak the patient is having coughing fitsdry, due to dry air VINAY QUEZADA [address] [place], [address], [facility], [place], operated by [facility] 04/15/2024 16:16:11 5 text/html c/o bicep tendinitis the patient reports that she is having R arm pain, around the bicep tendonthe patient is L hand dominant the patient feels like a dull constant achepain with flexion, int rotation, supinationthe patient had no sig weakness compared to L arm no numbness or tingling swelling around the mid point of the long head of the bicep tendon recommended RICE and to follow up with update to the office in 2 weeks pt agreesmeloxicam refilledtake with food VINAY QUEZADA [address] [place], [address], [facility], [place], operated by [facility] 08/20/2024 14:31:45 OBGyn Episode No OBEpisode recorded.
== END 2024-09-24 12:06 | disposition home or self-care (01) ==
LOC: HO.HGI 10:47
PROVIDERS: PCP Internal Medicine; Visit Provider Nurse Practitioner
DX: K21.9 Gastro-esophageal reflux disease without esophagitis (principal); R14.0 Abdominal distension (gaseous); K58.2 Mixed irritable bowel syndrome; Z86.0101 Personal history of adenomatous and serrated colon polyps
CPT/HCPCS: 99214

== ENCOUNTER → 2024-09-24 10:46 | Outpatient (BNVA) | payer MEDICARE, SELFPAY | PROVIDERS: PCP Internal Medicine; Visit Provider Nurse Practitioner | DX: Z01.818 Encounter for other preprocedural examination (principal); K21.9 Gastro-esophageal reflux disease without esophagitis; K58.2 Mixed irritable bowel syndrome; D12.6 Benign neoplasm of colon, unspecified; R14.0 Abdominal distension (gaseous) | CPT/HCPCS: 99212 ==

== ENCOUNTER 2024-10-24 15:38 | Outpatient (REF) | payer MEDICARE, SELFPAY ==
--- OUTSIDE RECORDS SUMMARY | 2024-10-24 15:41 | XMS_ITS | Patient Health Record ---
Author Organization [facility] Address [address] [place] [address] Care Team Providers Care Egg Processing Supervisor Name Role Phone Franky Estevez Primary Care Provider Pan Patterson [phone] Allergies Allergen (clinical drug ingredient) Drug/Non Drug [...] Problem Status W/U Status Risk Notes Problem 779123151 History of colon polyps (Z86.010) Active confirmed Problem 430145668 Gastroesophageal reflux disease, esophagitis presence not specified (K21.9) Active confirmed Problem 713478204 Family history o f colon cancer (Z80.0) Active confirmed Problem 49092536 Irritable bowel syndrome with both constipation and diarrhea (K58.2) Active confirmed Plan Of Treatment No Information Insurance Providers Payer Name Payer Address Payer Phone Subscriber Number Group Number Insured Name Patient Relationship to Insured Coverage Start Date Coverage End Date [place] OF [place] [address] [place] [id number] DAVIDESTELITALISSY DURHAMNE Self - patient is the insured MEDEX ATTN CLAIMS [address] [place] [address] [id number] NGALISSY DURAHMNE Self - patient is the insured Medical (General) History Medical History History ICD Code Asthma Hypothyroidism Hyperlipidemia GERD--previous EGD with Dr. Becker Anxiety Hx of colon polyps-1 colonos copy with a previous GI MD and [address] 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
[2024-10-24 19:22] LABS: Free T4 (Free Thyroxine) 0.73 ng/dL (0.71-1.85); Thyroid Stimulating Hormone 3.97 uIU/mL (0.32-4.0)
== END 2024-10-24 15:39 | disposition home or self-care (01) ==
LOC: HO.MANLDS 15:38
PROVIDERS: Visit Provider Physician Assistant
DX: E03.8 Other specified hypothyroidism (principal)
CPT/HCPCS: 36415; 84439; 84443

== ENCOUNTER 2024-11-12 11:38 | Outpatient (AMB) | payer MEDICARE, SELFPAY ==
[2024-11-12 11:46] VITALS: BP 127/62; PULSE 78; O2SAT 98; BMI 30.4
--- NOTE | 2024-11-12 11:46 | A.OFFVIS_ITS ---
Vital Signs 11/12/24 11:46 Height 5 ft 1 in Weight 161 lb BMI 30.4 BP 127/62 Blood Pressure Location Lt brachial Position Sitting Pulse 78 Pulse Oximetry (%) 98 Oxygen Delivery Method Room Air Intake Visit Reasons: F/U N/V, CIC Intake Note: Patient follow for constipation. Patient cc: constipation on and off, abdominal bloating, poor appetite, denies any other GI issues. Pipe Covering Molder Required: No Accompanied by: Self / Same As Patient Allergies amoxicillin Allergy (Severe, Verified 11/12/24 11:47) Anaphylaxis citalopram (Celexa) Allergy (Severe, Verified 11/12/24 11:47) Anaphylaxis Sulfa (Sulfonamide Antibiotics) Allergy (Unknown, Verified 11/12/24 11:47) Unknown Fragrance Allergy (Severe, Uncoded 09/24/24 10:56) Anaphylaxis Fructose Allergy (Severe, Uncoded 09/24/24 10:56) Anaphylaxis Latex Allergy (Severe, Uncoded 09/24/24 10:56) Anaphylaxis Sulfacet-R Allergy (Severe, Uncoded 09/24/24 10:56) Anaphylaxis HPI HPI F/U N/V, CIC: Details: Assessment & Plan (1) GERD (gastroesophageal reflux disease): Code(s): K21.9 - Gastro-esophageal reflux disease without esophagitis Category: Medical (2) Abdominal bloating: Code(s): R14.0 - Abdominal distension (gaseous) Category: Medical (3) Irritable bowel syndrome with both constipation and diarrhea: Code(s): K58.2 - Mixed irritable bowel syndrome Category: Medical (4) Tubular adenoma of colon: Comment: 2013 [facility]=TA, 2020 [facility]=TA repeat 5 years aeb Code(s): D12.6 - Benign neoplasm of colon, unspecified Category: Medical (5) Pre-op examination: Code(s): Z01.818 - Encounter for other preprocedural examination Category: Medical Plan The metallic taste resolved with the [employer], but it costs $30! However, she has developed N/V and lack of appetite over the past month. Coffee makes it worse. The only new medications are pilocarpine (could be a c/f- this is for dry mouth) and meloxicam, meclizine. It is somewhat better with drinking warm water for an hour or so. She also has a associated severe acid reflux despite taking her omeprazole 20 mg twice a day. Her CIC has worsened as well. She is using glycerin supps with some help. She is also under a great deal of stress caring for her mother. She has used Miralax in the past with some success. She is also having insomnia. She will not sleep at night but only short naps during the day. 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 We discussed a possible trial of mirtazapine but she declines for now. Her problem is that she just isn't tired. If she does feel tired than she will be able to sleep but otherwise she will lay in bed without being able to initiate sleep. Overall she feels that she is not getting enough sleep with compensatory napping. She is taking low-dose Wellbutrin which is rather activating. Overall, I think that this is probably chronic recurring problem triggered by psychogenic factors. However the constipation could be contributing as well as medication side effects. I think that getting an EGD is prudent since she has not had 1 in greater than 10 years. Since her heartburn has been worsening I think we should also increase her omeprazole to 40 mg twice a day. We discussed the fact that meloxicam could be a driving factor because even though it is a less agree just offender of the NSAIDs it is still can cause gastric upset. I will also recommend that she start using MiraLax to get her bowels moving better. I think she can stop the probiotic unless she finds a metallic taste returns upon cessation. Additional testing may be considered depending on her response to these interventions, I should probably refresh her labs since she has not had any since 2022. At that time she had an elevated alk-phos and according to her history she still has gallbladder which is another thing to consider as a potential contributing factor. ROV next avail. Orders: Orders EGD - GI Use Only Today K21.9 - Gastro-esophageal reflux disease without eso phagitis Medications: New polyethylene glycol 3350 (Miralax) 17 grams PO .qhs 30 days 119 grams 6RF K58.2 - Mixed irritable bowel syndrome omeprazole 40 mg PO BID 30 days 60 caps 6RF Refilled cgeoco-peomirml-lbzzgfc 24,000-76,000 -120,000 unit (Creon) administer with meals and/or snacks 1 cap PO QID 30 days 120 caps 6RF K58.2 - Mixed irritable bowel syndrome Discontinued omeprazole Discontinued Reason: Doctor's Order 20 mg PO BID 180 caps 2RF E66.3 - Overweight, K21.9 - Gastro-esophageal reflux disease without esophagitis EGD Biopsy TODAY'S VISIT She is having great trouble getting her creon through the pharmacies, and she is considering changing to [email or web address] mail order. She will let me know. She is exercising at the gym and her clothes are fitting looser, but she has not lost weight. This may be muscle weight. She found the Miralax very helpful for her CIC. She is currently on omeprazole 40mg bid, miralax and creon. She has had some trouble getting throug to our office, but she was calling the main phone # and I give her our direct line. ROV 6 mmos. PFSH Medical History Lack of appetite Food aversion Constipation Diarrhea Chronic nausea Uses hearing aid Hearing loss Insomnia Osteopenia Hypothyroidism Asthma Overweight (BMI 25.0-29.9) Surgical History History of esophagogastroduodenoscopy (EGD) Hx of colonoscopy Hx of breast reduction, elective History of intraocular lens implant History of dental advent Hx of appendectomy History of bladder suspension procedure Family History Father Colon cancer Mother Bone loss Blindness Brother Obesity Brother No problems noted. Sister No problems noted. Son No problems noted. Daughter No problems noted. Social History Alcohol intake: never Patient Tobacco Use Status: Never used Tobacco Review of Systems Const Denies fatigue, Denies fever(s), Denies night sweats, Denies poor appetite and Denies weight loss ENT Reports Normal hearing present, Denies dental pain, Denies dysphagia, Denies hearing loss, Denies mouth pain, Denies odynophagia, Denies throat swelling, Denies tongue swelling and Reports other (Dentition adequate) Card Reports no additional complaints Resp Reports no additional complaints GI Details: Denies abdominal pain, Denies melena, Denies bloating, Denies hematochezia, Reports constipation, Denies GI cramping, Denies dysphagia, Denies excessive flatus, Denies early satiety, Reports heartburn, Reports diarrhea, Denies nausea, Denies odynophagia, Denies vomiting and Denies hematemesis Skin/Breast Denies pruritus, Denies lesions, Denies rash and Denies jaundice Neuro Reports Normal hearing present and Denies Abnormal speech present Endo Denies fatigue Aller/Immun Denies throat swelling and Denies tongue swelling Physical Exam Vital Signs: Last Vital Signs Pulse 78 11/12/24 11:46 BP 127/62 11/12/24 11:46 Pulse Ox 98 11/12/24 11:46 Oxygen Delivery Method Room Air 11/12/24 11:46 BMI result Body Mass Index 30.4 Const General: cooperative, no acute distress, well developed and well groomed Nutritional Appearance: well nourished and overweight Orientation/consciousness: oriented to person, oriented to place and oriented to time Limitations: No language barrier HEENT Head: Yes normocephalic and Yes atraumatic Eyes General: appearance normal, both eyes and all related structures Pupils: Equal, round and reactive pupils present Neck Neck: Yes normal visual inspection and Yes no lymphadenopathy Thyroid: Thyroid normal Resp Effort & Inspection: normal respiratory effort and able to speak in complete sentences Auscultation: clear to auscultation bilaterally Cardio Rate: regular rate Rhythm: regular rhythm Heart sounds: Normal, physiologic split S2 sound present Peripheral pulses: radial pulses present and posterior tibial pulses present GI Inspection: No distended, No Abdominal panniculus present and Yes obesity Palpation (GI): Soft to palpation, nontender, no guarding, not rigid and No hepatosplenomegaly present Percussion: Yes normal to percussion Auscultation: normal bowel sounds Rectal Exam - Female: deferred Skin General skin exam: no rashes or lesions noted, turgor normal, skin not dry, no jaundice, No spider nevi and no striae Rashes: no rashes Nails: normal Neuro General: oriented to person, oriented to place and oriented to time Cranial nerves: Yes Equal, round and reactive pupils present and Yes Normal hearing present Speech: No Abnormal speech present Extrem General: Yes normal to inspection, No clubbing, No cyanosis and No edema Psych Appearance: grossly normal and well kempt Mental Status: mental status grossly normal Speech and movement: Normal speech and movement present Affect: normal affect Attitude: cooperative Thought process: Normal thought process present and not confabulating Thought content: Normal thought content present Insight: Good insight present (Psych) Judgement: Good judgement present (Psych) Assessment & Plan Assessment & Plan (1) GERD (gastroesophageal reflux disease): Code(s): K21.9 - Gastro-esophageal reflux disease without esophagitis Category: Medical (2) Irritable bowel syndrome with both constipation and diarrhea: Code(s): K58.2 - Mixed irritable bowel syndrome Category: Medical (3) Chronic nausea: Code(s): R11.0 - Nausea Category: Medical Plan She is having great trouble getting her creon through the pharmacies, and she is considering changing to [email or web address] mail order. She will let me know. She is exercising at the gym and her clothes are fitting looser, but she has not lost weight. This may be muscle weight. She found the Miralax very helpful for her CIC. She is currently on omeprazole 40mg bid, miralax and creon. She has had some trouble getting throug to our office, but she was calling the main phone # and I give her our direct line. ROV 6 mmos. s Coding Level of Care Code Est Pt Level 3 (58690) Diagnoses GERD (gastroesophageal reflux disease) K21.9 Irritable bowel syndrome with both constipation and diarrhea K58.2 Chronic nausea R11.0
--- OUTSIDE RECORDS SUMMARY | 2024-11-12 13:53 | XMS_ITS | Patient Health Record ---
Author Organization [facility] Address [address] [place] [address] Care Team Providers Care Steam Fitter Supervisor Maintenance Name Role Phone Franky Estevez Primary Care Provider Pan Patterson [phone] Allergies Allergen (clinical drug ingredient) Drug/Non Drug [...] Problem Status W/U Status Risk Notes Problem [id number] History of colon polyps (Z86.010) Active confirmed Problem [id number] Gastroesophageal reflux disease, esophagitis presence not specified (K21.9) Active confirmed Problem 452278754 Family history o f colon cancer (Z80.0) Active confirmed Problem 12976970 Irritable bowel syndrome with both constipation and diarrhea (K58.2) Active confirmed Plan Of Treatment No Information Insurance Providers Payer Name Payer Address Payer Phone Subscriber Number Group Number Insured Name Patient Relationship to Insured Coverage Start Date Coverage End Date MEDICARE OF [place] [address] [place]ON [address] [id number] DAVIDESTELITALISSY DURHAMNE Self - patient is the insured MEDEX ATTN CLAIMS [address] [place] [address] [phone] [id number] NGALISSY DURHAMNE Self - patient is the insured Medical (General) History Medical History History ICD Code Asthma Hypothyroidism Hyperlipidemia GERD--previous EGD with Dr. Becker Anxiety Hx of colon polyps-1 colonos copy with a previous GI MD and [address] 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
== END 2024-11-12 12:25 | disposition home or self-care (01) ==
LOC: HO.HGI 11:38
PROVIDERS: PCP Internal Medicine; Visit Provider Nurse Practitioner
DX: K21.9 Gastro-esophageal reflux disease without esophagitis (principal); K58.2 Mixed irritable bowel syndrome; R11.0 Nausea
CPT/HCPCS: 99213

== ENCOUNTER → 2024-11-12 11:38 | Outpatient (BNVA) | payer MEDICARE, SELFPAY | PROVIDERS: PCP Internal Medicine; Visit Provider Nurse Practitioner | DX: K21.9 Gastro-esophageal reflux disease without esophagitis (principal); K58.2 Mixed irritable bowel syndrome; R11.0 Nausea | CPT/HCPCS: 99212 ==

== ENCOUNTER 2024-12-30 12:59 | Outpatient (REF) | payer MEDICARE, SELFPAY ==
[2024-12-30 13:09] LABS: Appearance Urine Turbid; Glucose Urine UA Negative (Negative); PH 5.0 (5.0-9.0); Specific Gravity - Urine 1.020 (1.005-1.025); UMIC TRIGGER UACC YES
[2024-12-30 13:24] LABS: UACC Culture Trigger YES
--- OUTSIDE RECORDS SUMMARY | 2024-12-30 13:46 | XMS_ITS | Encounter Summary ---
Author Organization [facility] Address [address] [place] [address] Phone Care Team Providers Care Material Handling Supervisor Name Role Phone Franky Estevez Primary Care Provider [phone] Encounter Details Date Type Department Care Team (Latest Contact Info) Description 10/23/2022 Transcribe Orders Virtual Department [address] [place] [address] Gabi Fishman PA [address] [place] [address] [place] [address] Acute bronchiolitis due to other specified organisms (Primary Dx) Social History Tobacco Use Types Packs/Day Years Used Date Smoking Tobacco: Never Smokeless Tobacco: Never Alcohol Use Standard Drinks/Week Comments Yes 0 (1 standard drink = 0.6 oz pur e alcohol) Education Answer Date Recorded Are you interested in more education? Not on jean pierre e 09/15/2022 Are you concerned about learning? Not on file 09/15/2022 No 09/15/2022 No 09/15/2022 Digital Access Answer Date Recorded No 10/14/2022 No 10/14/2022 Reliable internet access at home? Not on file 10/14/2022 Device with a working camera? Not on file Comments No Sex and Gender Information Value Date Recorded Sex Assigned at Not on file Legal Sex Female 10:05 PM EDT Gender Identity Not on file Sexual Orientation Not on file documented as of this encounter Plan of Treatment Not on file documented as of this encounter Results * XR CHEST PA AND LATERAL 2 VIEWS (10/23/2022 12:32 PM EDT) Anatomical Region Laterality Modality Chest Computed Radiogr aphy 10/23/2022 6:38 PM EDT Impressions 10/23/2022 6:53 PM EDT No acute findings. Narrative 10/23/2022 6:53 PM EDT XR CHEST PA AND LATERAL 2 VIEWS COMPARISON: 09/13/2010 FINDINGS: Lungs: No pneumonia or pulmonary edema. Pleura: No pleural effusion. No pneumothorax Heart/Mediastinum: Heart size normal. Bones/Soft Tissues: No acute finding Procedure Note Jagdish Melendez MD, MONIQUE - 10/23/2022 XR CHEST PA AND LATERAL 2 VIEWS COMPARISON: 09/13/2010 FINDINGS: Lungs: No pneumonia or pulmonary edema. Pleura: No pleural effusion. No pneumothorax Heart/Mediastinum: Heart size normal. Bones/Soft Tissues: No acute finding IMPRESSION: No acute findings. Gabi MCLEAN IMG XR CHEST Final Resul t documented in this encounter Visit Diagnoses Diagnosis Acute bronchiolitis due to other specified organisms- Primary Acute bronchiolitis due to other specified organisms documented in this encounter Care Teams Material Handling Supervisor Relationship Specialty Start Date End Date Franky Estevez DO PCP - General Internal Medicine 05/23/17 documented as of this encounter Additional Source Comments The information contained in this document represents components of the legal health record. It is not the complete legal health record.[facility]
--- OUTSIDE RECORDS SUMMARY | 2024-12-30 13:46 | XMS_ITS | Patient Health Record ---
Author Organization [facility] Address [address] [place] [address] Care Team Providers Care Manager Imaging Name Role Phone Franky Estevez Primary Care Provider Pan Patterson [phone] Allergies Allergen (clinical drug ingredient) Drug/Non Drug [...] Problem Status W/U Status Risk Notes Problem [id number] History of colon polyps (Z86.010) Active confirmed Problem 923910988 Gastroesophageal reflux disease, esophagitis presence not specified (K21.9) Active confirmed Problem 832582531 Family history o f colon cancer (Z80.0) Active confirmed Problem 17276273 Irritable bowel syndrome with both constipation and diarrhea (K58.2) Active confirmed Plan Of Treatment No Information Insurance Providers Payer Name Payer Address Payer Phone Subscriber Number Group Number Insured Name Patient Relationship to Insured Coverage Start Date Coverage End Date [place]ARE OF [place] [address] [place] [id number] DAVIDESTELITALISSY DURHAMNE Self - patient is the insured MEDEX ATTN CLAIMS [address] [place] [address] [id number] NGALISSY DURHAMNE Self - patient is the insured Medical (General) History Medical History History ICD Code Asthma Hypothyroidism Hyperlipidemia GERD--previous EGD with Dr. Becker Anxiety Hx of colon polyps-1 colonos copy with a previous GI MD and [address] 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
== END 2024-12-30 13:00 | disposition home or self-care (01) ==
LOC: HO.MANLNP 12:59
PROVIDERS: Visit Provider Physician Assistant
DX: N39.0 Urinary tract infection, site not specified (principal)
CPT/HCPCS: 81001; 87086; 87088; 87186

== ENCOUNTER 2025-03-11 07:43 | Day surgery (SDC) | payer MEDICARE, SELFPAY ==
--- OUTSIDE RECORDS SUMMARY | 2025-03-03 17:17 | XMS_ITS | Encounter Summary ---
Author Organization [facility] Address [address] [facility] [address] [place] [address] Phone Care Team Providers Care Caseworker Name Role Phone Franky Estevez DO Primary Care Provider [phone] Encounter Details Date Type Department Care Team (Late st Contact Info) Description 03/10/2022 Procedure Pass [facility], [address] [address] Social History Tobacco Use Types Packs/Day Years Used Date Smoking Tobacco: Never Smokeless Tobacco: Never Alcohol Use Standard Drinks/Week Comments Yes 0 (1 standard drink = 0.6 oz pur e alcohol) Comments No Sex and Gender Information Value Date Recorded Sex Assigned at Not on file Legal Sex Female 10:05 PM EDT Gender Identity Not on file Sexual Orientation Not on file documented as of this encounter Plan of Treatment Not on file documented as of this encounter Visit Diagnoses Not on filedocumented in this encounter Care Teams Caseworker Relationship Specialty Start Date End Date Franky Estevez DO [email or web address] PCP - General Internal Medicine 05/23/17 documented as of this encounter Additional Source Comments The information contained in this document represents components of the legal health record. It is not the complete legal health record.[facility]
--- OUTSIDE RECORDS SUMMARY | 2025-03-03 17:17 | XMS_ITS | Patient Health Record ---
Author Organization [facility] Address [address] [place] [address] Care Team Providers Care Office Clerk Routine Name Role Phone Franky Estevez Primary Care Provider Pan Patterson [phone] Allergies Allergen (clinical drug ingredient) Drug/Non Drug [...] UT) 1 tablet Oral ly Once a day; Duration: 30 day(s) Active Vitamin C 500 MG as directed Orally Active Probiotic - as directed Orally Active Vitamin A Active Levothyroxine Sodium Active Albuterol Sulfate HFA Active Problems Problem Type SNOMED Code ICD Code Onset Dates Problem Status W/U Status Risk Notes Problem History of polyp of colon (situation) (972146392) History of colon polyps (Z86.010) Active confirmed Problem Gastroesophageal reflux disease (268517483) Gastroesophageal reflux disease, esophagitis presence not specified (K21.9) Active confirmed Problem Family History of Cancer of Colon (Situation) (333303413) Family history of colon cancer (Z80.0) Active confirmed Problem Irritable bowel syndrome (22608070) Irritable bowel syndrome with both constipation and diarrhea (K58.2) Active confirmed Plan Of Treatment No Information Insurance Providers Payer Name Payer Address Payer Phone Subscriber Number Group Number Insured Name Patient Relationship to Insured Coverage Start Date Coverage End Date [place]ARE OF [place] [address] [place] [id number] JENNIFER MICHAEL Self - patient is the insured MEDEX ATTN CLAIMS [address] [place] [address] [id number] JENNIFER MICHAEL Self - patient is the insured Medical (General) History Medical History History ICD Code Asthma Hypothyroidism Hyperlipidemia GERD--previous EGD with Dr. Becker Anxiety Hx of colon polyps-1 colonos copy with a previous GI MD and [address] 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
--- OUTSIDE RECORDS SUMMARY | 2025-03-03 17:17 | XMS_ITS | Encounter Summary ---
Author Organization [facility] Address [address] [place] [address] Phone Care Team Providers Care Document Clerk Name Role Phone Franky Estevez DO Primary Care Provider [phone] Encounter Details Date Type Department Care Team (Late st Contact Info) Description 07/16/2017 Ancillary Orders Virtual Department 30 [place] [address] Franky Estevez DO [address] [facility] [place] [address] Screening for osteoporosis; Breast screening Social History Tobacco Use Types Packs/Day Years Used Date Smoking Tobacco: Never Assessed Comments Unknown Sex and Gender Information Value Date Recorded Sex Assigned at Not on file Legal Sex Female 10:05 PM EDT Gender Identity Not on file Sexual Orientation Not on file documented as of this encounter Plan of Treatment Not on file documented as of this encounter Results * BI MAMMOGRAM SCREENING WITH TOMOSYNTHESIS WITH CAD (BILATERAL) (09/26/2017 1:00 PM EDT) Anatomical Region Laterality Modality Breast Left, Breast Right, Breast Bilateral Bila teral Mammography 09/26/2017 2:14 PM EDT Impressions 09/26/2017 2:18 PM EDT No mammographic change indicative of malignancy. Routine screening is recommended. BI-RADS CATEGORY: 1 - Negative. DENSITY: The breast tissue is almost entirely fat. POS -[id number] Narrative 09/26/2017 2:18 PM EDT Bilateral full-field digital screening mammography is obtained and read in conjunction with computer-aided detection. Tomosynthesis as well as 2-D C view imaging of both breasts in two planes also obtained. Comparison made to multiple prior, most recent 02/21/2016, and most remote 09/09/2010. No dominant mass, architectural distortion, worrisome asymmetry, or suspicious calcification is identified. No skin or nipple finding of concern is appreciated. Procedure Note Clifton Morrison MD - 09/26/2017 Bilateral full-field digital screening mammography is obtained and read inconjunction with computer-aided detection. Tomosynthesis as well as 2-D Cview imaging of both breasts in two planes also obtained. Comparison madeto multiple prior, most recent 02/21/2016, and most remote 09/09/2010. No dominant mass, architectural distortion, worrisome asymmetry, orsuspicious calcification is identified. No skin or nipple finding ofconcern is appreciated. IMPRESSION: No mammographic change indicative of malignancy. Routine screening isrecommended. BI-RADS CATEGORY: 1 - Negative. DENSITY: The breast tissue is almost entirely fat. POS -[id number] Franky Estevez DO IMG MG EXAMS Final Result documented in this encounter Visit Diagnoses Diagnosis Screening for osteoporosis Special screening for osteoporosis Breast screening Breast screening, unspecified Breast screening Breast screening, unspecified documented in this encounter Care Teams Document Clerk Relationship Specialty Start Date End Date Franky Estevez DO PCP - General Internal Medicine 05/23/17 documented as of this encounter Additional Source Comments The information contained in this document represents components of the legal health record. It is not the complete legal health record.[facility]
--- OUTSIDE RECORDS SUMMARY | 2025-03-03 17:17 | XMS_ITS | Encounter Summary ---
Author Organization [facility] Address [address] [facility] [address] [place] [address] Phone Care Team Providers Care Car Trimmer Name Role Phone Franky Estevez DO Primary Care Provider [phone] Encounter Details Date Type Department Care Team (Latest Contact Info) Description 06/13/2022 Transcribe Orders Virtual Department [address] [place] [address] Gabi Fishman PA [address] [place] [address] [place] [address] RLQ abdominal pain (Primary Dx) Social History Tobacco Use Types [...] documented as of this encounter Results * US PELVIS TRANSABDOMINAL PLUS TRANSVAGINAL (06/22/2022 10:59 AM EST) Anatomical Region Laterality Modality Pelvis, Uterus/Adnexa Ultrasound 06/22/2022 12:0 3 PM EST Impressions 06/22/2022 12:43 PM EST 1. Nonvisualization of the bilateral ovaries secondary to overlying bowel gas. 2. The endometrium measures 5 mm. This is considered within normal limits for a postmenopausal patient without bleeding. If the patient is experiencing bleeding, this would be considered thickened and histologic correlation would be recommended. 3. 1.1 cm subserosal fibroid at the uterine body. Narrative 06/22/2022 12:43 PM EST US PELVIS TRANSABDOMINAL PLUS TRANSVAGINAL History: Lower abdominal pain TECHNIQUE: Pelvic Ultrasound Transabdominal performed for global imaging of the pelvis. Pelvic Ultrasound Transvaginal performed for detailed imaging of the endometrium and/or adnexa. COMPARISON: There is no prior study available for comparison FINDINGS: Patient is postmenopausal. Uterus: Size: 5.4 x 2.8 x 3.9 cm. Orientation: anteverted Myometrium: There is a 1.1 cm subserosal fibroid at the posterior uterine body Endometrium: The endometrium measures 5 mm. Right adnexa: The ovary is unable to be demonstrated secondary to overlying bowel gas. Left adnexa: The ovary is unable to be demonstrated secondary to overlying bowel gas. Free fluid: No significant free fluid. Procedure Note Beatriz Isaac MD - 06/22/2022 US PELVIS TRANSABDOMINAL PLUS TRANSVAGINAL History: Lower abdominal pain TECHNIQUE: Pelvic Ultrasound Transabdominal performed for global imagingof the pelvis. Pelvic Ultrasound Transvaginal performed for detailedimaging of the endometrium and/or adnexa. COMPARISON: There is no prior study available for comparison FINDINGS: Patient is postmenopausal. Uterus: Size: 5.4 x 2.8 x 3.9 cm. Orientation: anteverted Myometrium: There is a 1.1 cm subserosal fibroid at the posterioruterine body Endometrium: The endometrium measures 5 mm. Right adnexa: The ovary is unable to be demonstrated secondary to overlying bowel gas. Left adnexa: The ovary is unable to be demonstrated secondary to overlying bowel gas. Free fluid: No significant free fluid. IMPRESSION: 1. Nonvisualization of the bilateral ovaries secondary to overlying bowelgas. 2. The endometrium measures 5 mm. This is considered within normal limitsfor a postmenopausal patient without bleeding. If the patient isexperiencing bleeding, this would be considered thickened and histologiccorrelation would be recommended. 3. 1.1 cm subserosal fibroid at the uterine body. us Gabi Ammon Sravanthi MCLEAN IMG US PELVIS Final Resul t * US ABDOMEN COMPLETE (ADULT) (06/22/2022 10:55 AM EST) Anatomical Region Laterality Modality Abdomen Ultrasound 06/22/2022 1:00 PM EST Impressions 06/22/2022 1:03 PM EST No acute abnormality demonstrated sonographically to explain etiology of patient's symptoms. Narrative 06/22/2022 1:03 PM EST US ABDOMEN COMPLETE (ADULT) TECHNIQUE: Abdominal Ultrasound Complete. COMPARISON: CT abdomen pelvis 07/08/2014 FINDINGS: Liver: Normal echogenicity. No focal lesions. Main Portal Vein: Patent with normal direction of flow. Gallbladder: No gallstones or gallbladder wall thickening. Carias's Sign: Negative. Biliary: No intrahepatic or extrahepatic biliary ductal dilatation. The common bile duct measures 3 mm. Pancreas: Incompletely visualized. Visualized portions are within normal limits Spleen: Normal. No splenomegaly. Kidneys: Normal in size bilaterally. There is a 1.4 cm partially exophytic simple cyst at the right mid kidney No stones or hydronephrosis. Aorta: Visualized portions are within normal limits where visualized sonographically. IVC: Normal intrahepatic segment. Procedure Note Beatriz Isaac MD - 06/22/2022 US ABDOMEN COMPLETE (ADULT) TECHNIQUE: Abdominal Ultrasound Complete. COMPARISON: CT abdomen pelvis 07/08/2014 FINDINGS: Liver: Normal echogenicity. No focal lesions. Main Portal Vein: Patent with normal direction of flow. Gallbladder: No gallstones or gallbladder wall thickening. Carias's Sign: Negative. Biliary: No intrahepatic or extrahepatic biliary ductal dilatation. The common bile duct measures 3 mm. Pancreas: Incompletely visualized. Visualized portions are within normallimits Spleen: Normal. No splenomegaly. Kidneys: Normal in size bilaterally. There is a 1.4 cm partially exophyticsimple cyst at the right mid kidney No stones or hydronephrosis. Aorta: Visualized portions are within normal limits where visualizedsonographically. IVC: Normal intrahepatic segment. IMPRESSION: No acute abnormality demonstrated sonographically to explain etiology ofpatient's symptoms. us Gabi MCLEAN IMG US ABDOMEN Final Resul t documented in this encounter Visit Diagnoses Diagnosis RLQ abdominal pain- Primary Abdominal pain, right lower quadrant RLQ abdominal pain Abdominal pain, right lower quadrant RLQ abdominal pain Abdominal pain, right lower quadrant documented in this encounter Care Teams Car Trimmer Relationship Specialty Start Date End Date Franky Estevez DO [email or web address] PCP - General Internal Medicine 05/23/17 documented as of this encounter Additional Source Comments The information contained in this document represents components of the legal health record. It is not the complete legal health record.[facility]
--- OUTSIDE RECORDS SUMMARY | 2025-03-03 17:17 | XMS_ITS | Encounter Summary ---
Author Organization [facility] Address [address] [facility] [address] [place] [address] Phone Care Team Providers Care Coremaker Supervisor Name Role Phone Franky Estevez DO Primary Care Provider [phone] Encounter Details Date Type Department Care Team (Late st Contact Info) Description 07/29/2021 Procedure Pass [facility], [address] [address] Social History Tobacco Use Types Packs/Day Years [...] on filedocumented in this encounter Care Teams Coremaker Supervisor Relationship Specialty Start Date End Date Franky Estevez DO [email or web address] PCP - General Internal Medicine 05/23/17 documented as of this encounter Additional Source Comments The information contained in this document represents components of the legal health record. It is not the complete legal health record.[facility]
--- OUTSIDE RECORDS SUMMARY | 2025-03-03 17:17 | XMS_ITS | Encounter Summary ---
Author Organization [facility] Address [address] [place] [address] [address] [place] [address] Phone Care Team Providers Care Collections Curator Name Role Phone Franky Estevez DO Primary Care Provider [phone] Encounter Details Date Type Department Care Team (Latest Contact Info) Description 07/29/2021 Transcribe Orders Virtual Department [address] [place] [address] Ligia Cowan MD [address] [place] [address] [address] [place] [address] [email or web address] Breast screening (Primary Dx) Social History Tobacco Use Types [...] MAMMOGRAM SCREENING WITH TOMOSYNTHESIS WITH CAD (BILATERAL) (08/17/2021 2:32 PM EDT) Anatomical Region Laterality Modality Breast Left, Breast Right, Breast Bilateral Bila teral Mammography 08/17/2021 4:56 PM EDT Impressions 08/17/2021 4:57 PM EDT No mammographic evidence of malignancy. Recommend annual surveillance. BI-RADS CATEGORY: 1 - Negative. DENSITY: The breast tissue is almost entirely fat. Narrative 08/17/2021 4:57 PM EDT 71-year-old female with no current breast symptoms. Comparison made to previous on 02/10/2019 and as far back as 04/10/2006. Interpretation made in conjunction with computer-aided detection and tomosynthesis. The breasts are almost entirely fatty. There are no suspicious masses, areas of architectural distortion, or suspicious clusters of microcalcifications. Procedure Note Angel Teresa MD - 08/17/2021 71-year-old female with no current breast symptoms. Comparison made toprevious on 02/10/2019 and as far back as 04/10/2006. Interpretation madein conjunction with computer-aided detection and tomosynthesis. The breasts are almost entirely fatty. There are no suspicious masses, areas of architectural distortion, orsuspicious clusters of microcalcifications. IMPRESSION: No mammographic evidence of malignancy. Recommend annual surveillance. BI-RADS CATEGORY: 1 - Negative. DENSITY: The breast tissue is almost entirely fat. Ligia Cowan MD IMG MG EXAMS Final Result documented in this encounter Visit Diagnoses Diagnosis Breast screening- Primary Breast screening, unspecified Breast screening Breast screening, unspecified documented in this encounter Care Teams Collections Curator Relationship Specialty Start Date End Date Franky Estevez DO PCP - General Internal Medicine 05/23/17 documented as of this encounter Additional Source Comments The information contained in this document represents components of the legal health record. It is not the complete legal health record.[facility]
--- OUTSIDE RECORDS SUMMARY | 2025-03-03 17:17 | XMS_ITS | Clinical Summary ---
Author Organization [facility] Address [address] [place] [address] Phone Care Team Providers Care Investments Manager Name Role Phone Franky Estevez Primary Care Provider [phone] Allergies Active Allergy Reactions Criticality Noted Date Comments Adhesive 10/26/2022 Other reaction(s): also plastic gives her a rash, Rash Amoxicillin Hives 07/19/2017 Sulfamethoxazole-Trimethop rim Unknown 07/19/2017 Citalopram Unknown 07/19/2017 Fructose GI Upset 07/19/2017 Latex Unknown 09/25/2024 Latex, Natural Rubber Swelling,Rash Low 07/19/2017 Other reaction(s): Unknown Perfume Unknown 02/07/2020 Sulfa (Sulfonamide Antibiotics) Unknown 07/19/2017 Other reaction(s): Unknown Medications liothyronine (CYTOMEL) 25 MCG tablet 1 tablet on an empty stomach Active montelukast (SINGULAIR) 10 mg tablet 1 tablet in the evening Active omeprazole (PRILOSEC) 20 MG capsule 1 capsule BID 0 Active sertraline (ZOLOFT) 100 MG tablet 1 tablet Active Lactobac no.41-Bifidoba ct no.7 70 mg (3 billion cell) Cap Probiotic Active atorvastatin (LIPITOR) 10 MG tablet Take 10 mg by mouth daily. Active albuterol 90 mcg/actuation inhaler every 4 (four) hours. Active levothyroxine (SYNTHROID, LEVOTHROID) 50 MCG tablet levothyroxine 50 mcg tablet TAKE 1 TABLET BY MOUTH EVERY DAY Active pancrelipase, lipase-proteas e-amylase, (CREON) 12,000-38,000 -60,000 unit CpDR capsule 12,000 units of lipase as directed. Active CREON 24,000-76,000 -120,000 unit CpDR TAKE 1 CAPSULE BY MOUTH FOUR TIMES A DAY WITH MEALS OR AND SNACKS 2 Active azithromycin (ZITHROMAX) 250 MG tablet take 2 tablets by mouth today, then take 1 tablet daily for 4 days 3 Active pilocarpine (SALAGEN) 5 MG tablet pilocarpine 5 mg tablet TAKE 1 TABLET BY MOUTH EVERY DAY Active naproxen (NAPROSYN) 500 MG tablet PLEASE SEE ATTACHED FOR DETAILED DIRECTIONS Active thiamine (VITAMIN B-1, MONONITRATE,) 100 mg Tab tablet TAKE 1 TABLET BY MOUTH EVERY DAY *OTC NT CVD* Active albuterol 90 mcg/actuation inhaler Albuterol Sulfate HFA Active ascorbic acid, vitamin C, (VITAMIN C) 250 MG tablet Take 2 tablets twice a day by oral route. Active ascorbic acid, vitamin C, 500 mg Cap as directed Orally Active buPROPion (WELLBUTRIN XL) 150 MG ER 24 hr tablet Take 150 mg by mouth daily. Active cholecalcifero l (VITAMIN D3) 25 MCG (1,000 unit) tablet 1 tablet Orally Once a day for 30 day(s) Active ketorolac (ACULAR) 0.5 % ophthalmic solution INSTILL 1 DROP IN LEFT EYE THREE TIMES A DAY FOR 3 WEEKS FOLLOWING SURGERY Active meclizine (ANTIVERT) 25 mg tablet Take 25 mg by mouth 3 (three) times a day as needed. Active meloxicam (MOBIC) 15 MG tablet take 1 tablet by mouth once every day with a meal 5 Active ondansetron (ZOFRAN) 8 MG tablet TAKE 1 TABLET BY MOUTH TWICE A DAY NEEDED FOR 7 DAYS Active Active Problems Problem Noted Date Diagnosed Date Moderate recurrent major depression 02/17/2019 Right shoulder pain 06/10/2018 Burn of larynx 10/09/2017 Disorder of bladder 10/09/2017 Gastroesophageal reflux disease 10/09/2017 Hypercholesterolemia 10/09/2017 Insomnia 10/09/2017 Osteopenia 10/09/2017 Asthma 10/01/2017 History of bilateral breast reduction surgery Hypothyroidism 10/01/2017 Irritable bowel syndrome 10/01/2017 Resolved Problems Problem Noted Date Diagnosed Date Resolved Date Breast density 10/01/2017 08/23/2021 Immunizations Immunization Administration Dates Next Due COVID-19 (Pre-03/12) Pfizer Vaccine, mRNA, PF ,07/24/2020 Influenza High-Dose Trivalent Preservative Free IM 04/10/2019,03/26/2018 Influenza Quadrivalent Adjuvanted Preservative F ree IM 02/10/2021,03/04/2020 Influenza Quadrivalent w/ Preservative IM 2019 Pneumococcal conjugate PCV13 02/10/2021 Family History Medical History Relation Comments Colon cancer Father Breast cancer Maternal Aunt CV disease Paternal Grandfather Testicular cancer Son Relation Status Comments Father Maternal Aunt Paternal Grandfather Son Alive Social History Tobacco Use Types Packs/Day Years Used Date Smoking Tobacco: Never Smokeless Tobacco: Never Tobacco Cessation:Counseling Given: Not Answered Alcohol Use Standard Drinks/Week Comments Yes 0 [...] on file Sexual Orientation Not on file Last Filed Vital Signs Vital Sign Reading Time Taken Comments Blood Pressure 138/90 09/25/2024 2:05 PM EDT Pulse 82 09/25/2024 2:05 PM EDT Temperature 36.6 C (97.9 F) 09/25/2024 2:05 PM EDT Respiratory Rate 16 09/25/2024 2:05 PM EDT Oxygen Saturation 97% 09/25/2024 2:05 PM EDT Inhaled Oxygen Concentration - - Weight 73 kg (161 lb) 09/25/2024 2:05 PM EDT Height 157.5 cm (5' 2 ) 09/25/2024 2:05 PM EDT Body Mass Index 29.45 09/25/2024 2:05 PM EDT Plan of Treatment Health Maintenance Due Date Last Done Comments Adult Td,Tdap Booster 1948 LIPID PANEL 1948 DEPRESSION SCREENING 1960 HEPATITIS C SCREENING 1966 ZOSTER VACCINES (1 of 2) 1998 TSH LEVEL 05/23/2018 05/23/2017 PNEUMOCOCCAL VACCINES (50+ years) (2 of 2 - PPSV23) 04/07/2021 02/10/2021 RSV VACCINE (1 - 1-dose 75+ series) 2023 INFLUENZA VACCINE (#1) 2024 , 03/01/2021, 02/10/2021, Additional history exists COVID-19 VACCINE ( - 2024- season) 2025 02/08/2024, 04/19/2022, 09/10/2021, Additional history exists OSTEOPOROSIS SCREENING INITIAL (ONE-TIME) Completed 11/08/2022, 09/26/2017 SMOKING STATUS SCREENING (Once After 26 Yrs) Completed 09/25/2024 HEPATITIS A VACCINES Aged Out No long er eligible based on patient's age to complete this topic HIB VACCINES Aged Out No longer eligi ble based on patient's age to complete this topic MENINGOCOCCAL VACCINES (ACWY) Aged Out No longer eligible based on patient's age to complete this topic MENINGOCOCCAL VACCINES (B) Aged Out N o longer eligible based on patient's age to complete this topic Medical Devices Not on file Procedures Procedure Name Priority Date/Time Associated Diagnosis Comments BD DXA AXIAL (SPINE) WITH HIP Routine 11/08/2022 2:20 PM EDT Osteopenia, unspecified location Other specified disorders of bone density and structure, unspecified site TSH Routine 05/23/2017 4:10 PM EST Abdominal distention Neurogenic bowel from Last 3 Months or Most Recently Relevant to Health Maintenance Results * BD DXA AXIAL (SPINE) WITH HIP (11/08/2022 2:20 PM EDT) Anatomical Region Laterality Modality Bone Density Bone Density 11/09/2022 12:3 1 PM EDT Impressions 11/09/2022 12:34 PM EDT Osteopenia based on density of both measured sites. (In 2018, the WHO classification was assigned based on the TOTAL femoral density, but since then be convention has changed to assigning the density classification based on the area with the lowest density in the hip, the neck in this case). POS -of Narrative 11/09/2022 12:34 PM EDT This is a 72-year-old woman who reports no perceived height loss.. Comparison : 09/26/2017. The lumbar spine and right hip were evaluated and felt to be technically adequate. L1-L4 VERTEBRAL BODIES: TOTAL DENSITY: 0.891 g/cm2 , T score: -1.4, Z-score: 0.9. This falls within the WHO classification of osteopenia . Not a significant change from 2018. RIGHT HIP: FEMORAL NECK: 0.661g/cm2, T score: -1.7, Z score: 0.4. TOTAL PROXIMAL FEMUR: 0.820 g/cm2; T-score: -1.0; Z-score: 0.8. This falls within the WHO classification of osteopenia . (Based on femoral neck density) This represents a -4.1% decrease density since 2012. Procedure Note Mk Martinez MD - 11/09/2022 This is a 72-year-old woman who reports no perceived heightloss.. Comparison : 09/26/2017. The lumbar spine and right hip were evaluated and felt to be technicallyadequate. L1-L4 VERTEBRAL BODIES: TOTAL DENSITY: 0.891 g/cm2 , T score: -1.4, Z-score: 0.9. This falls within the WHO classification of osteopenia . Not a significant change from 2018. RIGHT HIP: FEMORAL NECK: 0.661g/cm2, T score: -1.7, Z score: 0.4. TOTAL PROXIMAL FEMUR: 0.820 g/cm2; T-score: -1.0; Z-score: 0.8. This falls within the WHO classification of osteopenia . (Based on femoralneck density) This represents a -4.1% decrease density since 2012. IMPRESSION: Osteopenia based on density of both measured sites. (In 2018, the WHO classification was assigned based on the TOTAL femoraldensity, but since then be convention has changed to assigning the densityclassification based on the area with the lowest density in the hip, theneck in this case). POS -of us Gabi MCLEAN IMG BD BONE DENSITY DEXA Fi nal Result * TSH (05/23/2017 4:10 PM EST) TSH 1.67 0.27 - 4.20 uIU/mL [facility] Blood 05/23/2017 4:10 PM EST 05/23/2017 4:18 PM EST us Brenden Becker MD LAB BLOOD ORDERABLES Final Re sult [facility] [address] [place], [place] [id number] from Last 3 Months or Most Recently Relevant to Health Maintenance Insurance MEDIC[place] PART A & [place] [id number] Team My [employer] SUPPLEMENT MEDICARE PART A & B [employer] MED[employer] SUPPLEMENT MEDICARE PART A & B [employer] MED[employer] SUPPLEMENT MEDICARE PART A & B [facility] MEDEX SUPPLEMENT MEDICARE PART A & B Team [employer] SUPPLEMENT MEDICARE PART A & B [employer] SUPPLEMENT MEDICARE PART A & B Team [employer] SUPPLEMENT MEDICARE PART A & B [employer] SUPPLEMENT MEDICARE PART A & B [employer] SUPPLEMENT Care Teams Investments Manager Relationship Specialty Start Date End Date Franky Estevez DO [email or web address] PCP - General Internal Medicine 05/23/17 Additional Source Comments The information contained in this document represents components of the legal health record. It is not the complete legal health record.[facility]
--- OUTSIDE RECORDS SUMMARY | 2025-03-03 17:17 | XMS_ITS | Encounter Summary ---
Author Organization [facility] Address [address] [facility] [address] [place] [address] Phone Care Team Providers Care Log Data Technician Name Role Phone Franky Estevez DO Primary Care Provider [phone] Encounter Details Date Type Department Care Team (Late st Contact Info) Description 03/10/2022 Procedure Pass [address] [address] Social History Tobacco Use Types Packs/Day Years [...] on filedocumented in this encounter Care Teams Log Data Technician Relationship Specialty Start Date End Date Franky Estevez DO [email or web address] PCP - General Internal Medicine 05/23/17 documented as of this encounter Additional Source Comments The information contained in this document represents components of the legal health record. It is not the complete legal health record.[facility]
--- OUTSIDE RECORDS SUMMARY | 2025-03-03 17:17 | XMS_ITS | Encounter Summary ---
Author Organization [facility] Address [address] [place] [address] [place] [address] Phone Care Team Providers Care Splitting Machine Operator Name Role Phone Franky Estevez DO Primary Care Provider [phone] Encounter Details Date Type Department Care Team (Late st Contact Info) Description 07/19/2017 Procedure Pass [facility] Endoscopy Admitting Dept Virtual Department [address] [place] [address] Social History Tobacco Use Types Packs/Day Years Used Date Smoking Tobacco: Never Smokeless Tobacco: Never Alcohol Use Standard Drinks/Week Comments No 0 (1 standard drink = 0.6 oz pur e alcohol) Comments Unknown Sex and Gender Information Value Date Recorded Sex Assigned at Not on file Legal Sex Female 10:05 PM EDT Gender Identity Not on file Sexual Orientation Not on file documented as of this encounter Plan of Treatment Not on file documented as of this encounter Visit Diagnoses Not on filedocumented in this encounter Care Teams Splitting Machine Operator Relationship Specialty Start Date End Date Franky Estevez DO PCP - General Internal Medicine 05/23/17 documented as of this encounter Additional Source Comments The information contained in this document represents components of the legal health record. It is not the complete legal health record.[facility]
--- OUTSIDE RECORDS SUMMARY | 2025-03-03 17:17 | XMS_ITS | Encounter Summary ---
Author Organization [facility] Address [address] [facility] [address] [place] [address] Phone Care Team Providers Care Pie Dough Roller Name Role Phone Franky Estevez Primary Care Provider [phone] Encounter Details Date Type Department Care Team (Latest Contact Info) Description 10/23/2022 Transcribe Orders Virtual Department [address] [place] [address] Gabi Fishman PA [address] [place] [address] [place] [address] Acute bronchiolitis due to other specified organisms [...] organisms documented in this encounter Care Teams Pie Dough Roller Relationship Specialty Start Date End Date Franky Estevez DO PCP - General Internal Medicine 05/23/17 documented as of this encounter Additional Source Comments The information contained in this document represents components of the legal health record. It is not the complete legal health record.[facility]
--- OUTSIDE RECORDS SUMMARY | 2025-03-03 17:17 | XMS_ITS | Encounter Summary ---
Author Organization [facility] Address [address] [address] Phone Care Team Providers Care Ruby Software Developer Name Role Phone Franky Estevez Primary Care Provider [phone] Encounter Details Date Type Department Care Team (Late st Contact Info) Description 06/09/2022 Ancillary Orders Virtual Department [address] [place] [address] Gabi Fishman PA [address] [place] [address] [place] [address] Osteopenia, unspecified location; Other specified disorders of bone density and structure, unspecified site Social History Tobacco Use Types Packs/Day Years [...] documented as of this encounter Results * BD DXA AXIAL (SPINE) WITH [...] This represents a -4.1% decrease density since 2013. IMPRESSION: Osteopenia based on density of both measured sites. (In 2018, the WHO classification was assigned based on the TOTAL femoraldensity, but since then be convention has changed to assigning the densityclassification based on the area with the lowest density in the hip, theneck in this case). POS -of Gabi MCLEAN IMDiomedes BD BONE DENSITY DEXA Fi nal Result documented in this encounter Visit Diagnoses Diagnosis Osteopenia, unspecified location Other specified disorders of bone density and structure, unspecified site Osteopenia, unspecified location Other specified disorders of bone density and structure, unspecified site documented in this encounter Care Teams Ruby Software Developer Relationship Specialty Start Date End Date Franky Estevez DO [email or web address] PCP - General Internal Medicine 05/23/17 documented as of this encounter Additional Source Comments The information contained in this document represents components of the legal health record. It is not the complete legal health record.[facility]
--- OUTSIDE RECORDS SUMMARY | 2025-03-03 17:17 | XMS_ITS | Encounter Summary ---
Author Organization [facility] Address [address] [address] Phone Care Team Providers Care Roastmaster Name Role Phone Franky Estevez DO Primary Care Provider [phone] Encounter Details Date Type Department Care Team (Latest Contact Info) Description 06/09/2022 Transcribe Orders Virtual Department [address] [place] [address] Gabi Fishman PA [address] [place] [address] [place] [address] Osteopenia, unspecified location Social History Tobacco Use Types Packs/Day Years [...] documented as of this encounter Visit Diagnoses Diagnosis Osteopenia, unspecified location documented in this encounter Care Teams Roastmaster Relationship Specialty Start Date End Date Franky Estevez DO PCP - General Internal Medicine 05/23/17 documented as of this encounter Additional Source Comments The information contained in this document represents components of the legal health record. It is not the complete legal health record.[facility]
--- OUTSIDE RECORDS SUMMARY | 2025-03-03 17:18 | XMS_ITS | Encounter Summary ---
Author Organization [facility] Address [address] [place] [address] [place] [address] Phone Care Team Providers Care Network Developer Name Role Phone Stanarun Franky Faith VILLAR Primary Care Provider [phone] Reason for Referral * Physical Therapy (Routine) - Closed Specialty Diagnoses / Procedures Referred By Amisha alvarez Referred To Contact Physical Therapy Diagnoses Encounter for rehabilitation Pan Coleman MD Phone: tel: fax: [email or web address] [address] [place] [address] Phone: tel: Referral ID Status Reason Start Date Expiration Date Visits Re quested Visits Authorized [id number] Closed 01/11/2021 05/20/2021 99 [phone] Encounter Details Date Type Department Care Team (Latest Contact Info) Description 01/11/2021 Transcribe Orders [facility] [address] [place] [address] Pan Coleman MD [address] [facility], [address] [place] [address] [email or web address] Encounter for rehabilitation (Primary Dx) Social History Tobacco Use Types [...] on file documented as of this encounter Procedures Procedure Name Priority Date/Time Associated Diagnosis Comments AMB REFERRAL TO [facility] PHYSICAL THERAPY Routine 01/18/2021 12:40 PM EDT Encounter for rehabilitation documented in this encounter Results * Ambulatory referral to [facility] Physical Therapy (01/18/2021 12:40 PM EDT) Other us Pan Coleman MD AMB [facility] REFERRALS Final R esult documented in this encounter Visit Diagnoses Diagnosis Encounter for rehabilitation- Primary documented in this encounter Care Teams Network Developer Relationship Specialty Start Date End Date Franky Estevez DO [email or web address] PCP - General Internal Medicine 05/23/17 documented as of this encounter Additional Source Comments The information contained in this document represents components of the legal health record. It is not the complete legal health record.[facility]
--- OUTSIDE RECORDS SUMMARY | 2025-03-03 17:18 | XMS_ITS | Encounter Summary ---
Author Organization [facility] Address [address] [facility] [address] [place] [address] Phone Care Team Providers Care Transcriptionist Name Role Phone Franky Estevez DO Primary Care Provider [phone] Encounter Details Date Type Department Care Team ([facility] st Contact Info) Description 10/26/2024 Transcribe Orders Virtual Department [address] [place] [address] Franky Estevez DO [address] [facility] [place] [address] [place] [address] [email or web address] Right shoulder pain, unspecified chronicity (Primary Dx) Social History Tobacco Use Types [...] as of this encounter Results * XR SHOULDER 2 VIEWS (RIGHT) (10/28/2024 4:10 PM EDT) Anatomical Region Laterality Modality Shoulder Right Computed Radiogr aphy 10/29/2024 9:08 PM EDT Impressions 10/29/2024 9:10 PM EDT No acute fracture or dislocation. Degenerative changes. Narrative 10/29/2024 9:10 PM EDT XR SHOULDER 2 OR MORE VIEWS (RIGHT) Referring clinician's provided indication for this examination in [facility]: Outside Radiology Order; Pain in right shoulder COMPARISON: None FINDINGS: No acute displaced fracture or dislocation. There are moderate to severe degenerative changes involving the AC joint and mild degenerative changes involving the glenohumeral joint. There is bony demineralization present. Procedure Note Janusz Ho MD - 10/29/2024 XR SHOULDER 2 OR MORE VIEWS (RIGHT) Referring clinician's provided indication for this examination in Epic:Outside Radiology Order; Pain in right shoulder COMPARISON: None FINDINGS: No acute displaced fracture or dislocation. There are moderate to severedegenerative changes involving the AC joint and mild degenerative changesinvolving the glenohumeral joint. There is bony demineralizationpresent. IMPRESSION: No acute fracture or dislocation. Degenerative changes. us Franky Estevez DO IMG XR UPPER EXTREMITY Final Res ult documented in this encounter Visit Diagnoses Diagnosis Right shoulder pain, unspecified chronicity- Primary Right shoulder pain, unspecified chronicity documented in this encounter Care Teams Transcriptionist Relationship Specialty Start Date End Date Franky Estevez DO PCP - General Internal Medicine 05/23/17 documented as of this encounter Additional Source Comments The information contained in this document represents components of the legal health record. It is not the complete legal health record.[facility]
--- OUTSIDE RECORDS SUMMARY | 2025-03-03 17:18 | XMS_ITS | Encounter Summary ---
Author Organization [facility] Address [address] [place] [address] Phone Care Team Providers Care Fitter Type Bar And Segment Name Role Phone Franky Estevez DO Primary Care Provider [phone] Encounter Details Date Type Department Care Team (Latest Contact Info) Description 05/31/2017 Transcribe Orders [facility] Specimen Processing [address] [place] [address] Brenden Becker MD [address] [place] [phone] [email or web address] Neurogenic bowel (Primary Dx) Social History Tobacco Use Types [...] documented as of this encounter Results * Ova and parasites, stool (05/30/2017 10:00 AM EST) Specimen Source/ Description STOOL STOOL STOOL [facility] Special Requests None [facility] DIRECT EXAM No parasites found by Trichrome Stain [facility] DIRECT EXAM NO PARASITES FOUND BY DIRECT OR CONCENTRATION METHODS [facility] Report Status 06/10/2017 FINAL [facility] Stool (Stool) 05/30/2017 10: 00 AM EST 05/31/2017 9:02 PM EST us Brenden Becker MD MICROBIOLOGY - GENERAL ORDERA BLES Final Result [address] [address] * Ova and parasites, stool (05/29/2017 10:00 AM EST) Specimen Source/ Description STOOL STOOL STOOL [facility] Special Requests None [facility] DIRECT EXAM No parasites found by Trichrome Stain [facility] DIRECT EXAM NO PARASITES FOUND BY DIRECT OR CONCENTRATION METHODS [facility] Report Status 06/10/2017 FINAL [facility] Stool (Stool) 05/29/2017 10: 00 AM EST 05/31/2017 9:01 PM EST us Brenden Becker MD MICROBIOLOGY - GENERAL ORDERA BLES Final Result Performing Organization Address City/[facility]/ZIP Co de Phone Number [address] [address] documented in this encounter Visit Diagnoses Diagnosis Neurogenic bowel- Primary documented in this encounter Care Teams Fitter Type Bar And Segment Relationship Specialty Start Date End Date Franky Estevez DO [email or web address] PCP - General Internal Medicine 05/23/17 documented as of this encounter Additional Source Comments The information contained in this document represents components of the legal health record. It is not the complete legal health record.[facility]
--- OUTSIDE RECORDS SUMMARY | 2025-03-03 17:18 | XMS_ITS | Encounter Summary ---
Author Organization [facility] Address [address] [place] [address] [address] [place] [address] Phone Care Team Providers Care Internal Recruiter Name Role Phone Franky Estevez DO Primary Care Provider [phone] Encounter Details Date Type Department Care Team (Late st Contact Info) Description 01/15/2019 Ancillary Orders [facility] [address] [place] [id number] Thierno King MD [address] [place] [address] [address] [place] [address] [email or web address] Pain Social History Tobacco Use Types Packs/Day Years [...] as of this encounter Results * BI US BREAST LIMITED (LEFT) (02/10/2019 1:47 PM EDT) Anatomical Region Laterality Modality Breast Left, Breast Bilateral Left Ul trasound 02/10/2019 1:24 PM EDT Impressions 02/10/2019 1:45 PM EDT Mammography and ultrasonography are unremarkable. No findings of concern for malignancy are seen. The patient can resume routine mammography. The results were given to the patient at the time of the examination. BI-RADS CATEGORY: 1 - Negative. DENSITY: The breast tissue is almost entirely fat. SIGNS AND SYMPTOMS: Left breast pain and lumps POS - [id number] Narrative 02/10/2019 1:45 PM EDT Full field digital mammography was obtained with computer-aided detection. 2-D and 2-D C view imaging obtained as well as tomosynthesis images in two projections of the both breasts. Comparison with prior imaging from 10/06/2017 is made with older imaging dating back as far as 09/15/2011 also reviewed. There is fatty fibroglandular density evident in both breasts. The exam is performed because of palpable lumps in the left breast. There is no correlate on mammography of the palpable lumps evident in the upper outer periareolar and retroareolar and periareolar regions of the left breast. No dominant soft tissue mass of concern, suspicious clustered calcifications, skin changes, or architectural distortion is seen. Subsequent ultrasound of the 2 areas of concern is obtained. Ultrasound of the periareolar 3 and 7:00 positions is unremarkable. No adverse features, mass lesion, cyst, or explanation for breast pain is noted. Procedure Note Scooter Gallo MD - 02/10/2019 Full field digital mammography was obtained with computer-aided detection.2-D and 2-D C view imaging obtained as well as tomosynthesis images in twoprojections of the both breasts. Comparison with prior imaging from 10/06/2017 is made with older imagingdating back as far as 09/15/2011 also reviewed. There is fatty fibroglandular density evident in both breasts. The examis performed because of palpable lumps in the left breast. There is nocorrelate on mammography of the palpable lumps evident in the upper outerperiareolar and retroareolar and periareolar regions of the left breast. No dominant soft tissue mass of concern, suspicious clusteredcalcifications, skin changes, or architectural distortion is seen. Subsequent ultrasound of the 2 areas of concern is obtained. Ultrasound ofthe periareolar 3 and 7:00 positions is unremarkable. No adverse features,mass lesion, cyst, or explanation for breast pain is noted. IMPRESSION: Mammography and ultrasonography are unremarkable. No findings of concernfor malignancy are seen. The patient can resume routine mammography. The results were given to the patient at the time of the examination. BI-RADS CATEGORY: 1 - Negative. DENSITY: The breast tissue is almost entirely fat. SIGNS AND SYMPTOMS: Left breast pain and lumps POS - [id number] Thierno King MD [facility] BREAST Final Result documented in this encounter Visit Diagnoses Diagnosis Pain Generalized pain Pain Generalized pain documented in this encounter Care Teams Internal Recruiter Relationship Specialty Start Date End Date Franky Estevez DO [email or web address] PCP - General Internal Medicine 05/23/17 documented as of this encounter Additional Source Comments The information contained in this document represents components of the legal health record. It is not the complete legal health record.[facility]
--- OUTSIDE RECORDS SUMMARY | 2025-03-03 17:18 | XMS_ITS | Encounter Summary ---
Author Organization [facility] Address [address] [address] Phone Care Team Providers Care Special Shopper Name Role Phone Franky Estevez DO Primary Care Provider [phone] Encounter Details Date Type Department Care Team (Late st Contact Info) Description 09/18/2017 Ancillary Orders Virtual Department [address] [place] [address] Franky Estevez DO [address] [facility] [place] [address] [email or web address] Osteopenia of multiple sites Social History Tobacco Use Types Packs/Day Years [...] * BD DXA AXIAL (SPINE) WITH HIP (09/26/2017 2:03 PM EDT) Anatomical Region Laterality Modality Bone Density Bone Density 09/26/2017 2:49 PM EDT Impressions 09/26/2017 2:52 PM EDT Findings are now consistent with osteopenia. Statistically significant bone mineral density loss is at all three sites since 11/09/2008. POS -[id number] Narrative 09/26/2017 2:52 PM EDT This is a 67-year-old postmenopausal female presenting for a screening exam. Compare with the only previous study dated 11/07 06/29 and 01/06/2002. Evaluation of the lumbar spine and both hips is obtained and appears technically adequate. The lumbar spine from L1 through L4 discloses a total bone mineral density of 0.909 g/cm2 with a T-score of -1.3. Z score 0.8. This is in the osteopenia range. This represents a statistically significant change of -8.7% from 2008 The right hip has a total bone mineral density of 0.855 g/cm2 with a T-score of -0.7. This is in the normal range. This represents a statistically significant change of -10.2% from 2008. The left hip has a total bone mineral density of 0.873 g/cm2 for a T-score of - 0.6. This is in the normal range. This represents a statistically significant change of -6.5% from 2008 Lateral instant vertebral imaging is no performed. Procedure Note Kobe Evans MD - 09/26/2017 This is a 67-year-old postmenopausal female presenting for a screeningexam. Compare with the only previous study dated 11/07 06/29 and 01/06/2002. Evaluation of the lumbar spine and both hips is obtained and appearstechnically adequate. The lumbar spine from L1 through L4 discloses a total bone mineral densityof 0.909 g/cm2 with a T-score of -1.3. Z score 0.8. This is in theosteopenia range. This represents a statistically significant change of-8.7% from 2008 The right hip has a total bone mineral density of 0.855 g/cm2 with aT-score of - 0.7. This is in the normal range. This represents astatistically significant change of -10.2% from 2008. The left hip has a total bone mineral density of 0.873 g/cm2 for a T-scoreof - 0.6. This is in the normal range. This represents a statisticallysignificant change of -6.5% from 2008 Lateral instant vertebral imaging is no performed. IMPRESSION: Findings are now consistent with osteopenia. Statistically significantbone mineral density loss is at all three sites since 11/09/2008. POS -[id number] us Franky Estevez DO IMG BD BONE DENSITY DEXA Final R esult documented in this encounter Visit Diagnoses Diagnosis Osteopenia of multiple sites Osteopenia of multiple sites documented in this encounter Care Teams Special Shopper Relationship Specialty Start Date End Date Franky Estevez DO [email or web address] PCP - General Internal Medicine 05/23/17 documented as of this encounter Additional Source Comments The information contained in this document represents components of the legal health record. It is not the complete legal health record.[facility]
--- OUTSIDE RECORDS SUMMARY | 2025-03-03 17:18 | XMS_ITS | Data Portability ---
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) MDM HIGH MUST MEET 2 OUT OF 3 ELEMENTS: PROBLEMS, DATA OR RISK ELEMENT 1: PROBLEMS 1 OR MORE CHRONIC ILLNESS W/SEVERE EXACERBATION, PROGRESSION MAY REQUIRE HOSPITAL LEVEL CARE OR 1 ACUTE OR CHRONIC ILLNESS OR INJURY THAT POSES A THREAT TO LIFE OR BODILY FUNCTION ELEMENT 2: DATA: MUST MEET 2 OF 3 CATEGORIES CATEGORY 1 REVIEW OF PRIOR EXTERNAL NOTES REVIEW OF THE RESULTS ORDERING OF EACH TEST ASSESSMENT REQUIRING INDEPENDENT HISTORIAN(S) CATEGORY 2: INDEPENDENT INTERPRETATION OF TESTS BY ANOTHER PROVIDER/SPECIALI ST CATEGORY 3: DISCUSSION OF MGT OR TEST INTERPRETATION W/EXTERNAL PHYSICIAN/SPECIAL IST ELEMENT 3: RISK HIGH RISK OF MORBIDITY FROM ADDITIONAL DIAGNOSTIC TESTING OR TREATMENT PROVIDER MUST THOROUGHLY DOCUMENT EACH ELEMENT THAT IS COVERED The patient presented to their appointment today for multiple concerns requiring moderate to high-level decision making and took over 40-45 minutes for an adequate and appropriate history, exam, assessment and treatment plan. This appointment was done with an established patient. Not available 10/24/2024 15:29:19 Plan of Treatment Reminders Order Date Submit Date Provider Last Modified By Organization Details Last Modified Time Details Appointments ANNUAL EXAM 2024 01:30P M VINAY QUEZADA Not available Not available Not available Lab urinalysi s complete, reflex culture 2024 025 [facility], [address] [place] [address], [place], [address], 12/31/2024 12:50:36 lipid panel, blood 2023 024 [facility], [address] [place] [address], [place], [address], 04/15/2024 16:18:51 CMP, serum or plasma 2023 [facility], [address] [place] [address], [id number], 04/15/2024 16:18:51 CBC w/ auto diff 2023 [facility], [address] [place] [address], [address], 04/15/2024 16:18:51 TSH + free T4, serum 2023 [facility], [address] [place] [address], [address], 04/15/2024 16:18:51 urinalysi s complete, reflex culture 2023 024 [facility], [address] [place] [address], [address], 03/04/2024 18:44:40 urinalysi s, dipstick 2023 024 [facility], [address] [facility], [address], [place], [address], 03/04/2024 11:40:43 Referral None recorded. Procedures None recorded. Surgeries None recorded. Imaging XR, shoulder, 2 or more view 2024 025 [facility], [address], [place], [address], 10/29/2024 21:14:55 Medication Orders prednison e 10 mg tablet 2024 025 [facility]2025, [address] [facility], [place], [address], 12/30/2024 11:49:01 ciproflox acin 500 mg tablet 2024 025 [facility]2024, [address] [place], [address], 01/13/2025 05:01:00 mupirocin 2 % topical ointment 2024 025 [facility]2024, [address] [place], [address], 10/24/2024 15:24:30 meloxicam 15 mg tablet 2024 025 [facility]2024, [address] [place], [address], 08/20/2024 14:27:01 ciproflox acin 250 mg tablet 2023 024 [facility], [address] [place], [address], 04/15/2024 15:36:57 Patient TargetsNo targets recorded. Patient Instructions Encounter Date Encounter Id Patient Instructions Last Modified By Organization Details Last Modified Time 10/24/2024 [id number] learning about asthma Not available 10/24/2024 15:24:29 hypothyroidism: care instructions Not available 10/24/2024 15:24:29 Reason for Referral None Reported. Results Created Date Observation Date Name Description Value Unit Range Abnormal Flag Note LastModifiedBy Organization Detail LastModifiedTime 03/04/2003/04/2024 urina lysis , dipst ick Leukocytes Large Not Available [facility] [address] [place] [address], [place], [address], 03/04/2024 11:30:55 03/04/2003/04/2024 urina lysis , dipst ick Nitrite negati ve Not Available [facility] [address] [facility], [place], [address], 03/04/2024 11:30:55 03/04/2003/04/2024 urina lysis , dipst ick Urobilinogen .2 Not Available [facility] Internal [facility] [address] [facility] [address], [place], [address], 03/04/2024 11:30:55 03/04/2003/04/2024 urina lysis , dipst ick Protein 100 Not Available [facility] Internal [facility] [address] [facility] [address], [place], [address], 03/04/2024 11:30:55 03/04/2003/04/2024 urina lysis , dipst ick pH 6.0 Not Available [facility] [address] [facility] [address], [place], [address], 03/04/2024 11:30:55 03/04/2003/04/2024 urina lysis , dipst ick Blood Large Not Available [facility] [address] [facility] [address] [address], [place], [address], 03/04/2024 11:30:55 03/04/2003/04/2024 urina lysis , dipst ick Specific [place] 1.020 Not Available [facility] [address] [facility] [address], [place], [address], 03/04/2024 11:30:55 03/04/2003/04/2024 urina lysis , dipst ick Ketone Negati ve Not Available [facility] Internal [facility] [address] [facility] [address], [place], [address], 03/04/2024 11:30:55 03/04/2003/04/2024 urina lysis , dipst ick Bilirubin Negati ve Not Available [facility] [address] [facility] [address], [place], [address], 03/04/2024 11:30:55 03/04/2003/04/2024 urina lysis , dipst ick Glucose Negati ve Not Available [facility] [address] [facility] [address], [place], [address], 03/04/2024 11:30:55 03/04/20 24 03/04/2024 urina lysis , dipst ick Appearance Slight ly Cloudy Not Available [facility] [address] [facility] [address], [place], [address], 03/04/2024 11:30:55 03/04/20 24 03/04/2024 urina lysis , dipst ick Color Yellow Not Available [facility] [address] [facility] [address], [place], [address], 03/04/2024 11:30:55 10/30/19 25 10/28/2024 XR, shoul ilia, 2 or more view No observ ation record ed. [facility] [address] , [place], [address], 10/31/2024 15:08:07 Result Notes None recorded. Problems Name Problem SNOMED Code Status Onset Date Resolution Date Notes Provider Name and Address Organization Details Recorded Time Disorder of urinary bladder 17912665 Active 2017 Naila meza [facility] Internal [facility] 8 08:34:35 Asthma 345040100 Completed 201702/17/2019 VINAY QUEZADA [address] [facility], [place], [address], [facility] 4 12:06:17 Hypothyr oidism 37134888 Active 2017 Naila meza [facility] Internal [facility] 8 08:34:55 Gastroes ophageal reflux disease 478883827 Active 2017 Naila meza [facility] Internal [facility] 8 08:36:01 Hypercho lesterol emia 99096795 Active 2017 Naila meza [facility] 8 08:37:16 Insomnia 722416154 [facility] 08:37:25 Esophagi tis 03596995 [facility] 08:37:36 Gastriti s 1963547 [facility] 08:37:46 Hiatal hernia 92779660 [facility] 08:38:00 Osteopen ia 842185384 Active 2017 Franky Estevez DO [address] [place], [address], [facility] 8 12:32:20 Mild intermit tent asthma 665356450 Active 2018 SALO Bar [address] [place], [address], [facility] 9 10:41:12 Moderate recurren t major depressi on 51460085 Active 2018 SALO Bar [address] [place], [address], [facility] 9 10:42:07 Pain in throat 528528457 Active 2021 VINAY QUEZADA [address] [place], [address], [facility] 2 14:07:49 Cough 62866993 Active 2021 VINAY QUEZADA [address] [place], [address], [facility] 2 14:08:06 Taste sense altered 810917262 Active 2021 VINAY QUEZADA [address] [place], [address], [facility] 2 12:27:03 Otalgia of right ear 3180368821 Active 2021 could be migraine with her symptoms VINAY QUEZADA [address] [place], [address], [facility] 3 14:55:24 Dysuria 17357708 Active 2021 VINAY QUEZADA [address] [place], [address], [facility] 5 11:03:25 Xerostom ia 04498078 Active 2022 Franky Estevez, DO [address] [place] [address], [address], [facility] 5 15:20:56 Anxiety 50224325 Active 2022 VINAY QUEZADA [address] [place] [address], [address], [facility] 3 16:45:11 Sleep apnea 09044475 Active 2022 VINAY QUEZADA [address] [place] [address], [address], [facility] 3 11:46:14 Vertigo 219070041 Active 2022 Franky Estevez DO [address] [place] [address], [address], [facility] 3 10:37:28 Recurren t labyrint hitis 831065541 Active 2022 Franky Estevez DO [address] [place] [address], [address], [facility] 3 22:23:24 Acute urinary tract infectio n 345832543 Active 2023 VINAY QUEZADA [address] [place] [address], [address], [facility] 5 11:42:58 Acquired trigger finger of right ring finger 2393976560 13589 Active 2023 VINAY QUEZADA [address] [place] [address], [address], [facility] Internal [facility] 4 11:43:57 Depressi ve disorder 41413750 Active 2023 VINAY QUEZADA [address] [place], [address], [facility] 4 11:53:05 Asthma 644759852 Active 2023 VINAY QUEZADA [address] [place], [address], [facility] 4 12:06:17 Tendinit is of right biceps femoris Active 2024 VINAY QUEZADA [address] [place] [address], [address], [facility] 5 14:24:17 Biceps tendinit is 486803000 Active 2024 VINAY QUEZADA [address] [place] [address], [address], [facility] 5 14:26:18 Biceps tendinit is 534861326 Active 2024 VINAY QUEZADA [address] [place] [address], [address], [facility] 5 14:26:25 Osteoart hritis of joint of bilatera l hands 5260685286 24942 Active 2024 Franky Estevez DO [address] [place] [address], [address], [facility] 5 15:17:25 Left ring finger blister with infectio n Active 2024 Franky Estevez DO [address] [place] [address], [address], [facility] 5 15:23:27 Pain of right shoulder region Active 2024 Franky Estevez DO [address] [place] [address], [address], [facility] 5 15:25:54 Menopaus al symptom 16636477 Active 2024 Franky Estevez, DO [address] [place], [address], [facility] Internal [facility] 5 15:27:40 Pain of elbow region 05300818 Active 2024 Franky Estevez, DO [address] [place], [address], [facility] 5 14:56:30 Contact dermatit is caused by urushiol from [facility] paulo 412909100 Active 2024 VINAY QUEZADA [address] [place], [address], [facility] 5 11:44:25 Problem Notes None recorded. Medical Equipment None Reported. Allergies Allergen ID Allergen Name Allergen Category Reaction Reaction Severity Criticality Documentation Date Start Date Code Code System Note Provider Name and Address Organization Details Recorded Time 1419 amoxicill in medicatio n Not available Not available Not available 10/09/2017 723 RxNorm Naila [facility] 8 08:33:50 1420 Celexa medicatio n Not available Not available Not available 10/09/2017 00683 8 RxNorm Naila [facility] 8 08:34:02 1421 Bactrim medicatio n Not available Not available Not available 10/09/2017 77154 9 RxNorm Naila [facility] 8 08:34:11 1422 latex environme nt,medica tion Not available Not available Not available 10/09/2017 27271 91 RxNorm Naila [facility] 8 08:34:21 3935 fructose food,medi cation Not available Not available Not available 11/18/2019 4570 RxNorm stoma ch issue s Madysonirvin Montaño [facility] 0 09:48:44 Medications Name Sig Start Date Stop Date Status Note LastModified by Organization Details LastModified Time pilocarpine 5 mg tablet TAKE 1 TABLET BY MOUTH EVERY DAY active Not Available Not Available No t Available nystatin 100,000 unit/mL oral suspension 10/09 completed Not Available Not Available Not Available prednisone 10 mg tablet TAKE 4 TABS DAILY FOR 2 DAYS, THEN 3 TABS FOR 2 DAYS, THEN 2 TABS FOR 2 DAYS, THEN 1 TAB FOR 2 DAYS active Not Available Not Available No t Available atorvastati n 10 mg tablet TAKE 1 TABLET DAILY active Not Available Not Available No t Available azithromyci n 250 mg tablet TAKE 2 TABLETS BY MOUTH TODAY, THEN TAKE 1 TABLET DAILY FOR 4 DAYS 11/10 completed Not Available Not Available Not Available Lidocaine Viscous 2 % mucosal solution TAKE 15 ML EVERY 3 HOURS BY ORAL ROUTE NEEDED FOR 7 DAYS. 09/20 completed Not Available Not Available Not Available fluconazole 150 mg tablet Take 1 tablet by oral route. 12/21 completed Not Available Not Available Not Available liothyronin e 25 mcg tablet TAKE 1 TABLET ONCE DAILY 10/24 completed Not Available Not Available Not Available ondansetron HCl 8 mg tablet TAKE 1 TABLET BY MOUTH TWICE A DAY NEEDED FOR 7 DAYS 11/04 completed Not Available Not Available Not Available meloxicam 15 mg tablet TAKE 1 TABLET BY MOUTH ONCE EVERY DAY WITH A MEAL NEEDED active Not Available Not Available No t Available prednisone 20 mg tablet 12/21 completed Not [...] Not Available ciprofloxac in 500 mg tablet Take 1 tablet every 12 hours by oral route for 7 days. 01/13 completed Not Available Not Available Not Available omeprazole 40 mg capsule,del ayed release TAKE 1 CAPSULE BY MOUTH TWICE A DAY active Not Available Not Available No t Available triamcinolo ne acetonide 0.1 % topical [...] BY MOUTH THREE TIMES A DAY NEEDED FOR 30 DAYS active Not Available Not Available No t Available levothyroxi ne 50 mcg tablet TAKE 1 TABLET DAILY active Not Available Not Available No t Available ranitidine 300 mg capsule 10/09 completed Not Available Not Available Not Available omeprazole 20 mg capsule,del ayed release TAKE 1 CAPSULE BY MOUTH TWICE A DAY 10/24 completed Not Available Not Available Not Available montelukast 10 mg tablet TAKE 1 TABLET ONCE DAILY 10/24 completed Not Available Not Available Not Available mupirocin 2 % topical ointment APPLY A SMALL AMOUNT TO AFFECTED AREA 3 TIMES A DAY active Not Available Not Available No t Available Transderm-S [employer] 1 mg over 3 days transdermal patch [...] EVERY 4 HOURS NEEDED FOR 30 DAYS 10/24 completed Not Available Not Available Not Available ondansetron 4 mg disintegrat ing tablet PLACE 1 TABLET EVERY 8 HOURS BY ORAL ROUTE NEEDED FOR 7 DAYS. 10/13 completed Not Available Not Available Not Available naproxen 500 mg tablet PLEASE SEE ATTACHED FOR DETAILED DIRECTION S 11/04 completed Not Available Not Available Not Available bupropion HCl XL 150 mg 24 hr tablet, extended release TAKE 1 TABLET DAILY active Not Available Not Available No t Available nitrofurant oin monohydrate /macrocryst als 100 mg capsule TAKE 1 CAPSULE BY MOUTH EVERY 12 HOURS FOR 7 DAYS active Not Available Not Available No t Available vitamin A bid 10/24 completed Not Available Not Available Not Available Vitamin D 400 units with calcium 600mg bid 10/24 completed Not Available Not Available Not Available Creon 24,000-76,0 00-120,000 unit capsule,del ayed release TAKE 1 CAPSULE 4 TIMES DAILY FOR 30 DAYS. TAKE WITH MEALS AND/OR SNACKS active Not Available Not Available No t Available Probiotic 04/15 completed Not Available Not Available Not Available Vitamin B-1 (mononitrat e) 100 mg tablet TAKE 1 TABLET BY MOUTH EVERY DAY *OTC NT CVD* 10/24 completed Not Available Not Available Not Available Vitals Date Recorded Body height Body mass index (BMI) Body weight Heart rate Oxygen saturation Oxygen saturation in Arterial blood by Pulse oximetry Systolic And Diastolic Provider Name and Address Organization Details Last Updated DateTime 5 154.94 cm 30.4 kg/m2 23226.3 7 g 88 /min 98 % 98 % 128/88 mm[Hg] Kisha Aldridge [facility] 5 14:02:59 Date Recorded Body height Body mass index (BMI) Body weight Oxygen saturation Oxygen saturation in Arterial blood by Pulse oximetry Heart rate Systolic And Diastolic Provider Name and Address Organization Details Last Updated DateTime 5 154.94 cm 30.8 kg/m2 67118.8 4 g 98 % 98 % 86 /min 128/74 mm[Hg] Damaris Ruff [facility] 5 15:00:33 Date Recorded Body height Body mass index (BMI) Body weight Oxygen saturation Oxygen saturation in Arterial blood by Pulse oximetry Heart rate Systolic And Diastolic Provider Name and Address Organization Details Last Updated DateTime 5 154.94 cm 30.6 kg/m2 38168.9 6 g 96 % 96 % 88 /min 126/76 mm[Hg] Kisha Aldridge [facility] 5 11:37:44 Date Recorded Body height Body mass index (BMI) Body weight Heart rate Oxygen saturation Oxygen saturation in Arterial blood by Pulse oximetry Systolic And Diastolic Provider Name and Address Organization Details Last Updated DateTime 4 154.94 cm 30.9 kg/m2 24374.9 9 g 87 /min 96 % 96 % 120/74 mm[Hg] Junie Saleem [facility] 4 11:39:20 Date Recorded Body height Body mass index (BMI) Body weight Heart rate Oxygen saturation Oxygen saturation in Arterial blood by Pulse oximetry Systolic And Diastolic Provider Name and Address Organization Details Last Updated DateTime 4 154.94 cm 30.5 kg/m2 31817.5 3 g 89 /min 95 % 95 % 138/88 mm[Hg] Junie Saleem [facility] 4 15:48:30 Social History Question Answer Notes LastModified by Organizat ion Details LastModified Time Tobacco Smoking Status Never Smoker Not Available [facility] 03/23/2020 03:36:24 What Was The Date Of Your Most Recent Tobacco Screening? 12/30/2024 [email or web address] Information not available 12/30/2024 Sex: Unknown Functional Status Question Answer Note LastModified by Organization D etails LastModified Time Do you or have you ever used any other forms of tobacco or nicotine? No [email or web address] Information not available 11/05/2023 Mental Status None recorded. Family History Nothing Reported. Medical History No medical history recorded. Gynecological HistoryNo gynecological history recorded. Obstetrics History GPAL:G 0 P 0 0 0 0 Immunizations Vaccine Type Date Status Note Provider Nam e and Address Organization Details Recorded Time Influenza, split virus, quadrivalent, preservative 1 completed Molly meza [facility] 09/20/2021 12:09:47 influenza nasal, unspecified formulation 4 completed Franky Estevez, [address], [address], [facility] 02/10/2024 19:03:55 SARS-COV-2 (COVID-19) vaccine, UNSPECIFIED 4 completed Franky Estevez, DO [address] [place] [address], [address], [facility] 02/10/2024 19:04:03 Influenza, split virus, quadrivalent, preservative 9 completed Madyson meza [facility] 11/18/2019 09:45:35 Influenza, split virus, quadrivalent, preservative 0 iban meza [facility] 07/12/2020 15:15:23 COVID-19, mRNA, LNP-S, PF, 30 mcg/0.3 mL dose 1 completed Franky Estevez DO [address] [place] [address], [address], [facility] Internal [facility] 09/14/2020 14:09:56 COVID-19, mRNA, LNP-S, PF, 30 mcg/0.3 mL dose 1 completed Franky Estevez DO [address] [place] [address], [address], [facility] Internal [facility] 09/14/2020 14:10:11 Past Encounters Encounter ID Performer Location Encounter Start Date Encounter Closed Date Diagnosis/Indication Diagnosis SNOMED-CT Code Diagnosis ICD10 Code Diagnosis IMO Codes Diagnosis Note [id number] Franky Estevez [facility] Internal [address] [address] 10/09/2017 12:11:32 10/09/2017 12:44:23 Osteopenia 920743742 M85.9 needs labwork and referral to endocrine Candidiasis of mouth 797 40063 B37.0 thrush , oral will tx with diflucan po and use and refer if returns [id number] Franky Estevez DO [facility] Medicine [address] [place] [address] 11/12/2017 15:16:56 11/12/2017 16:37:25 Dysuria 21801451 R30.0 Urinary tr act infectious disease 37373123 N39.0 Painful ur ging to urinate 56296353 R30.0 Hypothyroidism 08702533 E03.9 stable, reviewed labs [id number] Franky Estevez [facility] Internal [address] [address] 12/21/2017 14:25:45 12/21/2017 15:47:47 Gastroesophageal reflux disease 083878375 K21.9 still very problemati c at times stops her from eating takes two omeprazole daily Hypothyroidism 50899966 E03.9 noted jump in tsh to 3.37 from 0.3 Hypercholesterolemia 136 96881 E78.00 last lab is excellent with good ldl and hdl Hernia of abdominal wall 825558434 K43.6 pt will call plastic surgeon from [facility] and will have an eval of her abdominal wall Asthma 565993264 J45.90 9 has required use of albuterol and has had some breakthrou gh needing treatment [id number] Franky Estevez [facility] [address] [facility] [address] 05/06/2018 13:40:25 05/06/2018 14:10:59 Impingement syndrome of right shoulder region 7305340815 53428 M75.41 Hypothyroidism 01659945 E03.9 [id number] Franky Estevez [facility] [address] [facility] [place] [facility] [place] [id number] 07/15/2018 14:57:20 07/15/2018 15:32:23 Pre-surgery evaluation 880191401 Z01.818 patient is seen and evaluated for pre operative risk assessment for the proposed cataract surgery Her preop risk category is low and she is certainly cleared for the surgery under current KALIE guidelines patient understand s to take her meds on the day of her procedure and needs to withhold her naproxen now. [id number] Franky Estevez [facility] Medicine [address] [facility] [place] [address] 02/17/2019 10:09:51 02/17/2019 10:47:48 Acute cystitis 73095111 N30.01 Gastroesop hageal reflux disease 942968656 K21.9 stable with meds Moderate r ecurrent major depression 27514125 F33.1 stable with meds [id number] Franky Estevez [facility] [address] [facility] [address] [place] [facility] [place] [address] 11/18/2019 09:41:57 11/18/2019 10:17:23 Acute otitis media 9894181 H66.91 will treat ear infection patient is told to avoid using hearing aid until infection clears [id number] Franky Estevez [facility] Internal Medicine [address] [facility],[place] [address] 12/08/2019 11:29:09 12/08/2019 12:36:01 Mild intermittent asthma [id number] J45.20 Has been well controlled with current treatment Seasonal allergy 6921260 04 J30.2 Sore throat in AM Recc OTC flonase at bedtime Xerostomia 45933561 R68. 2 Rec OTC dry mouth solutions Likely medication s related Uses nightime mouthguard Moderate r ecurrent major depression 21725540 F33.1 Seems to be getting a little worse Hiatal hernia 14994925 K 44.9 Would like referral to new GI Hypercholesterolemia 136 41199 E78.00 LDL 138 HDL 48 Gastritis 6871004 K29.70 gerd , and esophagiti s, will need new GI specialist to follow her Body mass index 25-29 - overweight 982351319 Z68.29 will refer to [facility] [address] Franky Estevez [facility] Internal Medicine [address] [facility], [place] [address] 07/12/2020 15:06:23 07/12/2020 15:57:59 Mild intermittent asthma 923416438 J45.Donna Has been well controlled with current treatment Hypothyroidism 01105135 E03.9 prior noted jump in tsh to 3.37 from 0.3 will be rechecking lab Hypercholesterolemia 136 46599 E78.00 LDL 138 HDL 48 will cont current dose of atorvastat in and follow Hepatitis C screening 41 1548169 Z11.59 next lab Dysfunctio n of right eustachian tube 0096042324 173603 H69.91 to try sudafed Jaw pain 693733229 R68.8 4 could this be her eustachian tube dysfunctio n ? she has a mouth guard that she is not wearing... ... or just eustachian tube dysfun.. [id number] Franky Estevez [facility] Internal Medicine [address] [facility], [place] [address] 09/14/2020 14:03:29 09/14/2020 14:50:42 Hearing loss 57256055 H91.91 in meantime will try the flonase [place] [id number] Franky Estevez [facility] Internal Medicine [address] [facility], [place] [address] 10/27/2020 10:21:34 10/27/2020 11:19:09 Dysfunction of right eustachian tube 1999081038 127029 H68.001 the patient most likely has a Eustachian tube dysfunctio [place] [address] Franky Estevez [facility] Internal Medicine [address] [facility],[place] [address] 02/18/2021 08:16:34 02/18/2021 16:43:14 Moderate recurrent major depression 43064671 F33.1 Seems to be getting a little worse Hypothyroidism 50532911 E03.9 prior notedtsh 0.6 Hypercholesterolemia 136 38511 E78.00 LDL 108 was 138 HDL now 53 was 48 will cont current dose of atorvastat in and follow Gastroesop hageal reflux disease 964959097 K21.9 seems to be stabletake s two omeprazole daily Generalized rash 5238447 06 R21 to use sparingly [id number] Franky Estevez [facility] Internal Medicine [address] [place] [address],[place] [address] 04/25/2021 11:32:05 04/25/2021 15:57:53 Dysuria 78546217 R30.9 will start her on abxand send her urine out for culture [id number] Franky Estevez [facility] Internal Medicine [address] [place] [address],[place] [address] 09/06/2021 09:22:24 09/06/2021 16:27:14 Fever with chills 501500043 R50.81 continue on APAP Cough 71506902 R05.1 mild, can use OTC meds Pain in throat 529992464 R07.0 start on medrol, z chiki and lidocaine for symptom treatment [id number] Franky Estevez [facility] Internal Medicine [address] [place] [address],[place] [address] 09/20/2021 11:59:52 09/23/2021 12:30:58 Taste sense altered 587348846 R43.2 possible combinatio ns of things Otalgia of right ear 271 5801314 H92.01 sees ENT 93066 Franky FaithRudy Herb [facility] Internal Medicine [address] [facility], [place] [address] 06/09/2022 11:20:21 06/09/2022 12:18:05 Dysuria 90093109 R30.9 will start her on abxand send her urine out for culture Osteopenia 781940583 M85 .80 need recheck bone density as wellthe patient has a loss of bone in her teethwill recheck her values Hypercholesterolemia 136 02363 E78.2 will recheck lab work Hypothyroidism 09645869 E03.8 will set up with recheck BW Abdominal pain 91415461 R10.31 will set up with US abd/pelvis Xerostomia 18510247 K11. 7 suggested by dental hygienist Nausea 983837859 R11.0 15013 Franky Estevez [facility] Internal Medicine [address] [facility], [place] [address] 10/13/2022 14:10:03 10/13/2022 15:57:08 Pre-surgery evaluation 880247866 Z01.818 The patient was seen in the office today for pre-op evaluation . All medical conditions on patient's problem list were addressed and are currently stable, no interventi on needed at this time. Based on history and physical performed, the patient is cleared for surgery. Mild inter mittent asthma 857730242 J45.20 needs refill [id number] [facility] [address] [facility], [place] [facility] [place] [address] 11/05/2023 11:15:46 11/05/2023 12:01:27 Depression screening 818581501 Z13.31 0 Acquired t apparel manager finger of right ring finger 9369982579 78846 M65.341 agreed to hand surgeon in case it does not improveagr eed to conservati ve therapy Vertigo 204199117 R42 continue on meclizine everyday for vertigo since there is no other causes for it and PT was ineffectiv e Depressive disorder 3548 9007 F32.1 stable Anxiety 06926443 F41.1 [place] 7 0 Asthma 420310973 J45.20 stable [id number] Franky Batsheva Estevez [facility] Internal Medicine [address] [facility] [address] [place] [facility] [place] [address] 03/04/2024 11:28:02 03/04/2024 11:56:44 Acute urinary tract infection 910450379 N39.0 start on ciprofloxa chitra [id number] Franky Herman Herb [facility] Internal Medicine [address] [facility] [address] [place] [facility] [place] [address] 04/15/2024 15:35:11 04/15/2024 16:19:25 Sleep apnea 92229872 G47.33 stable Vertigo 645112937 R42 continue on meclizine everyday for vertigo since there is no other causes for it and PT was ineffectiv e Xerostomia 76211752 K11. 7 stable Hypothyroidism 78199769 E03.8 will set up with recheck BW Hypercholesterolemia 136 45601 E78.2 will recheck [id number] Franky Estevez [facility] Internal Medicine [address] [facility] [address] [place] [address] 08/20/2024 13:57:13 08/20/2024 14:43:12 Biceps tendinitis 612153592 M75.21 two weeks of ice, rest and meloxicam, report back after two weeks to update [id number] Franky Estevez [facility] Internal Medicine [address] [facility] [address] [place] [facility] [place] [address] 10/24/2024 14:46:40 10/24/2024 15:40:08 Depression screening 127343857 Z13.31 opos marital issues Hypothyroidism 82685988 E03.8 has not had lab in 2 years needs to have donetsh 0.6 last checked Hypercholesterolemia 136 68205 E78.2 LDL 108 was 138 HDL now 53 was 48 will cont current dose of atorvastat in and follow Osteoarthr itis of joint of bilateral hands 6169916704 12679 M19.041 M19.042 60979854 will try to use the meloxicam Asthma 851578565 J45.20 relates has had tx for this with montulekas t for many years not using albut hasnt wheezed at alll will try stopping Xerostomia 98456652 R68. 2 8024 Rec OTC dry mouth solutions will cont pilocarpin e Likely medication s related Uses nightime mouthguard Left ring finger blister with infection 6078023074 1940091 S60.425A L08.9 5029094846 Pain of ri ght shoulder region 9686967797 M25.511 85289186 Menopausal symptom 88467 002 N95.1 474152 having hot flashes at times then feels cold too [id number] Franky Estevez DO [facility] Internal Medicine [address] [facility],[place] [address] 12/30/2024 11:23:22 12/30/2024 15:16:27 Depression screening 144541545 Z13.31 0 Acute urin yanet tract infection 745228001 N39.0 376093 start on ciprofloxa chitra Contact de rmatitis caused by urushiol from [place] poison paulo 089052275 L23.7 162320 Health Concerns Section Related Observation LastModified by Organization Detai ls LastModified Time None Recorded Concern Status LastModified by Organization Details LastModified Time None Recorded Advance Directives Directive None Recorded Payers Insurance Date Sequence Insurance Name Policy Number Policy Samuel Covered Member ID Samuel Member ID Guarantor Name 12/30/2024 2 [place] [id number] Alesia Manjarrez [id number] Alesia Manjarrez 12/30/2024 1 [place] Alesia Manjarrez [id number] Alesia Manjarrez Notes Date Note Type Note Provider Name and Address Organization Details Recorded Time 4 text/html ROS as noted in the HPI c/o acute UTI symptoms the patient reports that she is having a week of burning, frequency of urinationthe patient has blood and WBC's in her urine samplewill start on cipro for the next 5 days and send out her urine to check for any resistant form of bacteriawill adjust of needed the patient denies fever, chills, or back pain VINAY QUEZADA [address] [facility], [place], [address], [facility] Internal Medicine 03/04/2024 11:53:39 4 text/html f/u [...] due to dry air VINAY QUEZADA [address] [place], [address], [facility] Internal [facility] 04/15/2024 16:16:11 5 text/html ROS as noted in the HPI c/o bicep tendinitis the patient reports that [...] agreesmeloxicam refilledtake with food VINAY QUEZADA [address] [place], [address], [facility] Internal Medicine 08/20/2024 14:31:45 5 text/html ROS as noted in the HPI here for rechkrelates she is taking 13 diff RX and want to see if she can come offshe is taking creo and a probiotic for her digestiondiscussed bupropion use but is not happy Franky Estevez DO [address] [place], [address], [facility] Internal Medicine 10/24/2024 15:30:03 5 text/html ROS as noted in the HPI c/o acute UTI and poison paulo the patient has UTI symptoms present againhad UTI in November, cleared out with macrobidthe patient reports that she felt fine until two days gostart with the frequency and dysuria pos dip in office, pos leuks and nitrateswill send out urine for cultureadjusted treatment to alt that she is not allergic too will change if the culture comes back with bacteria not treated with abx also has poison ivyssilvia was gardening and stuck her hand in a patch of it before she realized what it washas patches on her arms and legsrecommended starting prednisone, she tried calamine, benadryl cream and hydrocortisone to no affect VINAY QUEZADA [address] [facility], [place], [address], [facility] Internal Medicine 12/30/2024 11:55:57 OBGyn Episode No OBEpisode recorded.
--- OUTSIDE RECORDS SUMMARY | 2025-03-03 17:18 | XMS_ITS | Encounter Summary ---
Author Organization [facility] Address [address] [place] [address] Phone Care Team Providers Care Assembly Person Name Role Phone Franky Estevez DO Primary Care Provider [phone] Encounter Details Date Type Department Care Team (Latest Contact Info) Description 06/21/2017 Transcribe Orders [facility] Specimen Processing [address] [place] [address] Deborah Yates PA-C [address] [place] [address] [email or web address] Diarrhea, unspecified type (Primary Dx) Social History Tobacco Use Types [...] documented as of this encounter Results * Giardia antigen screen (06/21/2017 10:30 AM EST) ST GIARDIA ANTIGEN Negative Negative [facility] DPT OF LAB MED AND PAT+ Stool (Stool) 06/21/2017 10: 30 AM EST 06/21/2017 5:33 PM EST us Deborah Yates PA-C MICROBIOLOGY - GENERAL ORDERABL ES Final Result [facility] DPT OF LAB MED AND PAT+ [address] [place] [address] * (ABNORMAL) Stool culture (06/21/2017 10:30 AM EST) Specimen Source/ Description STOOL STOOL STOOL [facility] Special Requests None [facility] Culture/Test NO SALMONELLA, SHIGELLA OR CAMPYLOBACTER ISOLATED No gram negative von isolated(A) [facility] Report Status 06/24/2017 FINAL [facility] Stool (Stool) 06/21/2017 10: 30 AM EST 06/21/2017 5:34 PM EST us Deborah Yates PA-C MICROBIOLOGY - GENERAL ORDERABL ES Final Result [address] [address] documented in this encounter Visit Diagnoses Diagnosis Diarrhea, unspecified type- Primary documented in this encounter Care Teams Assembly Person Relationship Specialty Start Date End Date Franky Estevez DO [email or web address] PCP - General Internal Medicine 05/23/17 documented as of this encounter Additional Source Comments The information contained in this document represents components of the legal health record. It is not the complete legal health record.[facility]
--- OUTSIDE RECORDS SUMMARY | 2025-03-03 17:18 | XMS_ITS | Encounter Summary ---
Author Organization [facility] Address [address] [place] [address] [place] [address] Phone Care Team Providers Care Plant Control Aide Name Role Phone Franky Estevez DO Primary Care Provider [phone] Encounter Details Date Type Department Care Team (Latest Contact Info) Description 05/23/2017 Transcribe Orders [facility] Laboratory [address] [place] [address] Brenden Becker MD [address] [place] [address] [email or web address] Abdominal distention (Primary Dx); Neurogenic bowel Social History Tobacco Use Types Packs/Day Years Used Date Smoking Tobacco: Never Assessed Comments Unknown Sex and Gender Information Value Date Recorded Sex Assigned at Not on file Legal Sex Female 10:05 PM EDT Gender Identity Not on file Sexual Orientation Not on file documented as of this encounter Plan of Treatment Not on file documented as of this encounter Results * TSH (05/23/2017 4:10 PM EST) TSH 1.67 0.27 - 4.20 uIU/mL [facility] Blood 05/23/2017 4:10 PM EST 05/23/2017 4:18 PM EST us Brenden Becker MD LAB BLOOD ORDERABLES Final Re sult [facility] [address] [place] [address] * C-Reactive Protein (05/23/2017 4:10 PM EST) C REACTIVE PROTEIN 0.2 0 - 0.5 mg/L [facility] Blood 05/23/2017 4:10 PM EST 05/23/2017 4:18 PM EST us Brenden Becker MD LAB BLOOD ORDERABLES Final Re sult [facility] [address] [place] [address] * Comprehensive metabolic panel (05/23/2017 4:10 PM EST) Pathologist [facility] SODIUM 141 133 - 146 mmol/L [facility] POTASSIUM 4.3 3.3 - 5.1 mmol/L [facility] CHLORIDE 103 96 - 108 mmol/L [facility] CO2 27 21 - 35 mmol/L [facility] BUN 17 6 - 19 mg/dL [facility] CREATININE 0.70 0.5 - 1.5 mg/dL [facility] GLUCOSE 91 70 - 99 mg/dL [facility] ALBUMIN 3.9 3.9 - 4.8 g/dL [facility] TOTAL PROTEIN 6.9 6.5 - 8.0 g/dL [facility] CALCIUM 9.2 8.4 - 10.3 mg/dL [facility] ALKALINE PHOSPHATASE 109 39 - 117 U/L [facility] TOTAL BILIRUBIN 0.6 0 - 1.2 mg/dL [facility] AST 18 0 - 37 U/L [facility] ALT 15 0 - 40 U/L [facility] GLOBULIN 3.0 1 - 4.8 g/dL [facility] EGFR >60 >60 mL/min/1.7 3m2 [facility] Comment:Abnormal if <60. If patient is -Burmese, multiply the result by 1.21. ANION GAP 15 10 - 20 mmol/L [facility] Blood 05/23/2017 4:10 PM EST 05/23/2017 4:18 PM EST us Brenden Becker MD LAB BLOOD ORDERABLES Final Re sult [facility] [address] [place] [address] * (ABNORMAL) CBC and differential (05/23/2017 4:10 PM EST) WBC 8.33 3.40 - 11.20 K/uL [facility] RBC 4.61 3.80 - 4.80 M/uL [facility] HGB 13.7 12.0 - 15.0 g/dL [facility] HCT 39.3 36.0 - 46.0 % [facility] PLT 251 130 - 400 K/uL [facility] MCV 85.2 79.0 - 98.0 fL [facility] MCH 29.7 27.0 - 34.8 pg [facility] MCHC 34.9 31.5 - 36.0 g/dL [facility] RDW 13.2 10.8 - 14.6 % [facility] MPV 10.5 9.4 - 12.4 fl [facility] NRBC 0.00 /100 WBCs [facility] ABSOLUTE NRBC 0.00 K/uL [facility] DIFF METHOD Auto [facility] NEUTS 38.9(L) 45.30 - 77.70 % [facility] LYMPHS 47.4(H) 12.30 - 39.70 % [facility] MONOS 10.6 4.10 - 12.80 % [facility] EOS 2.0 0 - 7.2 % [facility] BASOS 0.7 0 - 2.80 % [facility] Granulocytes, immature (%) 0.4 0.0 - 0.9 % [facility] ABSOLUTE NEUTS 3.24 1.40 - 7.70 K/uL [facility] ABSOLUTE LYMPHS 3.95(H) 0.60 - 3.20 K/uL [facility] ABSOLUTE MONOS 0.88(H) 0.11 - 0.59 K/uL [facility] ABSOLUTE EOS 0.17 0.01 - 0.50 K/uL [facility] ABSOLUTE BASOS 0.06 0.00 - 0.08 K/uL [facility] Granulocytes, immature 0.03 0.00 - 0.05 K/uL [facility] Blood 05/23/2017 4:10 PM EST 05/23/2017 4:18 PM EST us Brenden Becker MD LAB BLOOD ORDERABLES Final Re sult Performing Organization Address [facility] Co de Phone Number [address] [address] * Immunoglobulin A (05/23/2017 4:10 PM EST) IgA 220 70 - 400 mg/dL [facility] Blood 05/23/2017 4:10 PM EST 05/23/2017 4:18 PM EST Brenden Becker MD LAB BLOOD ORDERABLES Final Re sult Performing Organization Address [facility] de Phone Number [address] [address] * Tissue transglutaminase IgA (05/23/2017 4:10 PM EST) TTG IGA ANTIBODY 1.3 <4.0 (Negative) U/mL [facility] DPT OF LAB MED AND PAT+ Blood 05/23/2017 4:10 PM EST 05/23/2017 4:19 PM EST Brenden Becker MD LAB BLOOD ORDERABLES Final Re sult Performing Organization Address [facility] de Phone Number [facility] DPT OF LAB MED AND PAT+ [address] [place] [address] documented in this encounter Visit Diagnoses Diagnosis Abdominal distention- Primary Flatulence, eructation, and gas pain Neurogenic bowel documented in this encounter Care Teams Plant Control Aide Relationship Specialty Start Date End Date Franky Estevez DO [email or web address] PCP - General Internal Medicine 05/23/17 documented as of this encounter Additional Source Comments The information contained in this document represents components of the legal health record. It is not the complete legal health record.[facility]
--- OUTSIDE RECORDS SUMMARY | 2025-03-03 17:18 | XMS_ITS | Encounter Summary ---
Author Organization [facility] Address [address] [place] [address] Phone Care Team Providers Care Vending Machine Attendant Name Role Phone Franky Estevez DO Primary Care Provider [phone] Encounter Details Date Type Department Care Team (Latest Contact Info) Description 05/31/2017 Transcribe Orders [facility] Specimen Processing [address] [place] [address] Brenden Becker MD [address] [place] [phone] [email or web address] Neurogenic bowel (Primary Dx) Social History Tobacco [...] encounter Results * Ova and parasites, stool (05/28/2017 10:00 AM EST) Specimen Source/ Description STOOL STOOL STOOL [facility] Special Requests None [facility] DIRECT EXAM No parasites found by Trichrome Stain [facility] DIRECT EXAM NO PARASITES FOUND BY DIRECT OR CONCENTRATION METHODS [facility] Report Status 06/10/2017 FINAL [facility] Stool (Stool) 05/28/2017 10: 00 AM EST 05/31/2017 9:00 PM EST us Brenden Becker MD MICROBIOLOGY - GENERAL MAGY LUTHER Final Result [facility] [address] [place] [address] documented in this encounter Visit Diagnoses Diagnosis Neurogenic bowel- Primary documented in this encounter Care Teams Vending Machine Attendant Relationship Specialty Start Date End Date Franky Estevez DO [email or web address] PCP - General Internal Medicine 05/23/17 documented as of this encounter Additional Source Comments The information contained in this document represents components of the legal health record. It is not the complete legal health record.[facility]
--- NOTE | 2025-03-09 13:03 | HO.ANESPROP2 ---
Documented by User: Carolyn Cavazos NP 03/09/25 13:03 HPI - Anesthesia Eval Consult details Narrative: 74 yr old female for upper endoscopy [facility] Active Problems Active Problems: All Active Problems Pre-op examination (Acute) Tubular adenoma of colon (Acute) Family history of colon cancer (Acute) GERD (gastroesophageal reflux disease) (Acute) Abdominal bloating (Acute) Irritable bowel syndrome with both constipation and diarrhea (Acute) Lack of appetite (Acute) Food aversion (Acute) Chronic nausea (Acute) Overweight (BMI 25.0-29.9) (Acute) Past Medical History Medical History Lack of appetite Food aversion Constipation Diarrhea Chronic nausea Uses hearing aid Hearing loss Insomnia Osteopenia Hypothyroidism Asthma Overweight (BMI 25.0-29.9) Family History Family History Father Colon cancer Mother Bone loss Blindness Brother Obesity Brother No problems noted. Sister No problems noted. Son No problems noted. Daughter No problems noted. Family history of problems with anesthesia: No Surgical History Surgical History History of esophagogastroduodenoscopy (EGD) Hx of colonoscopy Hx of breast reduction, elective History of intraocular lens implant History of dental confucianism Hx of appendectomy History of bladder suspension procedure History of Problems with Anesthesia: No Social History Social History Are you a primary hospice care consultant to a significant other at home: No Do you presently have visiting nurse or other home services: No Alcohol intake: never Patient Tobacco Use Status: Never used Tobacco Have you been hit, kicked, punched, or otherwise hurt by someone within the past year? If so, by whom?: No Are you DNR?: No Advance Directives: No Advance Directives Information Provided: Yes Poor oral hygiene: No Meds Allergies Allergy/AdvReac Type Severity Reaction Status Date / Time amoxicillin Allergy Severe Anaphylaxis Verified 11/12/24 11:47 citalopram (Celexa) Allergy Severe Anaphylaxis Verified 11/12/24 11:47 Sulfa (Sulfonamide Allergy Unknown Unknown Verified 11/12/24 11:47 Antibiotics) Fragrance Allergy Severe Anaphylaxis Uncoded 09/24/24 10:56 Fructose Allergy Severe Anaphylaxis Uncoded 09/24/24 10:56 Latex Allergy Severe Anaphylaxis Uncoded 09/24/24 10:56 Sulfacet-R Allergy Severe Anaphylaxis Uncoded 09/24/24 10:56 Home Medications ?Medication ?Instructions ?Recorded ?Confirmed ?Last Taken ?Type albuterol sulfate 90 mcg/actuation 2 puff inhalation 6XD 04/23/20 03/09/25 Unknown History aerosol inhaler atorvastatin 10 mg tablet 10 mg PO DAILY 04/23/20 03/09/25 Unknown History montelukast 10 mg tablet 10 mg PO DAILY 04/23/20 03/09/25 Unknown History sertraline 100 mg tablet 100 mg PO DAILY 04/23/20 03/09/25 Unknown History liothyronine 25 mcg tablet 1 tab PO DAILY 12/31/20 03/09/25 Unknown History levothyroxine 50 mcg tablet 50 mcg PO DAILY 02/04/21 03/09/25 Unknown History Lactobacillus rhamnosus GG 10 1 cap PO DAILY 03/28/23 Unknown History billion cell capsule (Culturelle) pilocarpine HCl 5 mg tablet 5 mg PO DAILY 03/28/23 03/09/25 Unknown History vitamins A,C,K-dmdb-bblncj 4,296 1 cap PO BID 03/28/23 Unknown History mcg-226 mg-90 mg capsule (PreserVision AREDS) bupropion HCl 150 mg 24 hr tablet, 150 mg PO QAM 09/26/23 03/09/25 Unknown History extended release meclizine 25 mg tablet 25 mg PO TID PRN Vertigo 03/28/24 03/09/25 Unknown History meloxicam 15 mg tablet 15 mg PO DAILY 03/28/24 03/09/25 Unknown History Assessment and Plan Final Anesthetic Review Family History of Problems with Anesthesia: No History of Problems with Anesthesia: No Documented by User: Honey Chaney MD 03/11/25 08:19 [facility] Past Medical History Medical History Lack of appetite Food aversion Constipation Diarrhea Chronic nausea Uses hearing aid Hearing loss Insomnia Osteopenia Hypothyroidism Asthma Overweight (BMI 25.0-29.9) Family History Family History Father Colon cancer Mother Bone loss Blindness Brother Obesity Brother No problems noted. Sister No problems noted. Son No problems noted. Daughter No problems noted. Surgical History Surgical History History of esophagogastroduodenoscopy (EGD) Hx of colonoscopy Hx of breast reduction, elective History of intraocular lens implant History of dental confucianism Hx of appendectomy History of bladder suspension procedure Social History Social History Are you a primary hospice care consultant to a significant other at home: No Do you presently have visiting nurse or other home services: No Alcohol intake: never Patient Tobacco Use Status: Never used Tobacco Have you been hit, kicked, punched, or otherwise hurt by someone within the past year? If so, by whom?: No Are you DNR?: No Advance Directives: No Advance Directives Information Provided: Yes Poor oral hygiene: No Meds Allergies Allergy/AdvReac Type Severity Reaction Status Date / Time amoxicillin Allergy Severe Anaphylaxis Verified 11/12/24 11:47 citalopram (Celexa) Allergy Severe Anaphylaxis Verified 11/12/24 11:47 Sulfa (Sulfonamide Allergy Unknown Unknown Verified 11/12/24 11:47 Antibiotics) Fragrance Allergy Severe Anaphylaxis Uncoded 09/24/24 10:56 Fructose Allergy Severe Anaphylaxis Uncoded 09/24/24 10:56 Latex Allergy Severe Anaphylaxis Uncoded 09/24/24 10:56 Sulfacet-R Allergy Severe Anaphylaxis Uncoded 09/24/24 10:56 Home Medications ?Medication ?Instructions ?Recorded ?Confirmed ?Last Taken ?Type albuterol sulfate 90 mcg/actuation 2 puff inhalation 6XD 04/23/20 03/09/25 Unknown History aerosol inhaler atorvastatin 10 mg tablet 10 mg PO DAILY 04/23/20 03/09/25 Unknown History montelukast 10 mg tablet 10 mg PO DAILY 04/23/20 03/09/25 Unknown History sertraline 100 mg tablet 100 mg PO DAILY 04/23/20 03/09/25 Unknown History liothyronine 25 mcg tablet 1 tab PO DAILY 12/31/20 03/09/25 Unknown History levothyroxine 50 mcg tablet 50 mcg PO DAILY 02/04/21 03/09/25 Unknown History Lactobacillus rhamnosus GG 10 1 cap PO DAILY 03/28/23 Unknown History billion cell capsule (Culturelle) pilocarpine HCl 5 mg tablet 5 mg PO DAILY 03/28/23 03/09/25 Unknown History vitamins A,C,D-vuma-ewrwkj 4,296 1 cap PO BID 03/28/23 Unknown History mcg-226 mg-90 mg capsule (PreserVision AREDS) bupropion HCl 150 mg 24 hr tablet, 150 mg PO QAM 09/26/23 03/09/25 Unknown History extended release meclizine 25 mg tablet 25 mg PO TID PRN Vertigo 03/28/24 03/09/25 Unknown History meloxicam 15 mg tablet 15 mg PO DAILY 03/28/24 03/09/25 Unknown History Exam Airway Mallampati Class: II (2 front top caps, multiple caps laterally) TM Dist: >3cm Neck ROM: Full Heart: rrr Lungs: cta Assessment and Plan Assessment Anesthesia Assessment: Anesthesia Plan Discussed and Chart Reviewed Final Anesthetic Review NPO: Yes ASA Class: II Final Preanesthetic Review: No Changes in Pt Med Stat, Meds/Allgs Chart Reviewed and Consent Obtained/Reviewed Patient Risk: Intermediate Procedure Risk: Intermediate Anesthetic Plan Anesthetic Plan: MAC: Disposition: Standard PACU
[2025-03-09 15:33] VITALS: BMI 30.4
[2025-03-11 07:57] VITALS: BMI 31.1
[2025-03-11 08:08] VITALS: BP 138/67; PULSE 84; RESP 18; TEMP 36.6; O2SAT 95
--- NOTE | 2025-03-11 08:36 | MHC.SHP ---
Pre-Procedural Eval Section A - 24 Hr Update-Section A only Date of Service: 03/11/25 Section B - Complete if H&P > 30 days Chief Complaint: Abdominal distension (gaseous),nausea,anorexia Details of Present Illness: Lack of appetite Food aversion Constipation Diarrhea Chronic nausea Uses hearing aid Hearing loss Insomnia Osteopenia Hypothyroidism Asthma Overweight (BMI 25.0-29.9) Surgical History History of esophagogastroduodenoscopy (EGD) Hx of colonoscopy Hx of breast reduction, elective History of intraocular lens implant History of dental hoahaoism Hx of appendectomy History of bladder suspension procedure Allergies: Allergies Allergy/AdvReac Type Severity Reaction Status Date / Time amoxicillin Allergy Severe Anaphylaxis Verified 11/12/24 11:47 citalopram (Celexa) Allergy Severe Anaphylaxis Verified 11/12/24 11:47 Sulfa (Sulfonamide Allergy Unknown Unknown Verified 11/12/24 11:47 Antibiotics) Fragrance Allergy Severe Anaphylaxis Uncoded 09/24/24 10:56 Fructose Allergy Severe Anaphylaxis Uncoded 09/24/24 10:56 Latex Allergy Severe Anaphylaxis Uncoded 09/24/24 10:56 Sulfacet-R Allergy Severe Anaphylaxis Uncoded 09/24/24 10:56 Review of Systems Review of Systems Comment: Ten point ROS negative Exam Exam Comment: Gen appear: No acute distress HEENT: no icterus Chest: No overt resp distress Abd: soft, nontender, nondistended Psych: Stable affect, answering questions appropriately Neuro: A/Ox3 noted to move all extremities spontaneously Ext: no peripheral edema Plan Diagnosis/Plan: Unchanged I have reviewed the history and physical and performed a pertinent physical examination on my patient. No changes have occurred unless specified. Time Spent With Patient Time: Total time managing care of this patient today ____ minutes.
[2025-03-11 08:59] VITALS: BP 107/56; PULSE 81; RESP 16; TEMP 36.6; O2SAT 91
--- NOTE | 2025-03-11 09:03 | P.OP_ITS ---
Operative Note Operative Note Date of Service: 03/11/25 Narrative: Procedure: Esophagogastroduodenoscopy Endoscopist: Nicole Hernandez MD Indication: Abd pain, GERD Anesthesia Provider: Kristen Maddox CRNA Anesthesia Type: MAC EGD Procedure:?? The procedure, indications, preparation and potential complications were reviewed with the patient, who indicated understanding and gave written informed consent to proceed. A physical exam was performed. The endoscope was introduced through the mouth, and advanced to the second part of duodenum. The mucosa was carefully examined on slow withdrawal of the endoscope. The patient tolerated the procedure well. There were no immediate complications.? ? EGD Findings:? * Esophagus:? Normal mucosa noted in the entire esophagus. The Z line was at 35 cm and displaced by a hiatal hernia with the pinch at 39 cm. Random esophagus forceps biopsies were obtained to rule out eosinophilic esophagitis. * Stomach:? Erythema erosions and scant heme noted in the antrum. Retroflexion was performed in the cardia. Cold forceps biopsies were taken from the gastric body and antrum. * Duodenum:? Erythema, edema noted in the duodenal bulb, remaining mucosa normal to the extent examined. Cold forceps biopsies were taken from the duodenal bulb for histology. ? EGD Impressions:? * Normal esophagus (biopsy) * Hiatal hernia * Gastritis (biopsy) * Duodenitis (biopsy) ?? Recommendations:?? * Follow biopsy results. Our office will call or send a letter with results within 7-10 days. * Continue PPI therapy. * Patient takes meloxicam as OP. Advised to stop this. Tylenol is ok. * If H pylori +, patient will be prescribed eradication therapy followed by test of cure. Above has been reviewed with the patient. Relevant educational hand outs were provided at discharge.
[2025-03-11 09:14] VITALS: BP 103/64; PULSE 74; RESP 16; TEMP 36.5; O2SAT 96
== END 2025-03-11 09:33 | disposition home or self-care (01) ==
PROVIDERS: PCP Internal Medicine; Visit Provider Internal Medicine
PROC: 0DJ08ZZ Inspection of Upper Intestinal Tract, Via Natural or Artificial Opening Endoscopic (ICD-10-PCS; CPT 43235; principal; 2025-03-11 11:00)
DX: R14.0 Abdominal distension (gaseous) (principal); R63.0 Anorexia; R11.0 Nausea; K21.9 Gastro-esophageal reflux disease without esophagitis; K58.2 Mixed irritable bowel syndrome; Z86.0101 Personal history of adenomatous and serrated colon polyps; R11.10 Vomiting, unspecified; K44.9 Diaphragmatic hernia without obstruction or gangrene; K29.70 Gastritis, unspecified, without bleeding; K29.80 Duodenitis without bleeding
CPT/HCPCS: 43239; 88305; 88313; 88342; J2003; J2704

== ENCOUNTER → 2025-03-11 07:43 | Outpatient (BNV) | payer MEDICARE, SELFPAY | PROVIDERS: PCP Internal Medicine; Visit Provider Internal Medicine | DX: K21.9 Gastro-esophageal reflux disease without esophagitis (principal); K29.70 Gastritis, unspecified, without bleeding; K29.80 Duodenitis without bleeding | CPT/HCPCS: 43239 ==

== ENCOUNTER 2025-04-07 15:08 | Outpatient (AMB) | payer MEDICARE, SELFPAY ==
[2025-04-07 15:12] VITALS: BP 145/81; PULSE 88
--- NOTE | 2025-04-07 15:12 | A.OFFVIS_ITS ---
Vital Signs 04/07/25 15:12 Height 5 ft 1 in BP 145/81 H Blood Pressure Location Lt brachial Position Sitting Pulse 88 Intake Visit Reasons: s/p EGD Intake Note: Alesia returns to in office follow up s/p EGD. CC: Patient continues to c/o constipation, poor appetite, and abd bloating. She also reports a change on taste and states that she can only taste sweets now. She also c/o LLQ abd pain after having BMs and increased heartburn. She also reports that she had a colonoscopy a while back and would like to know if any of the thing she is experiencing now are related to that. She received a note on the mail stating inflammation of small intestine and stomach. Bone Char Operator Required: No Accompanied by: Spouse Allergies amoxicillin Allergy (Severe, Verified 04/07/25 15:28) Anaphylaxis citalopram (Celexa) Allergy (Severe, Verified 04/07/25 15:28) Anaphylaxis Sulfa (Sulfonamide Antibiotics) Allergy (Unknown, Verified 04/07/25 15:28) Unknown meloxicam Adverse Reaction (Unknown, Verified 04/07/25 15:28) Unknown NSAIDS (Non-Steroidal Anti-Inflamma Adverse Reaction (Unknown, Verified 04/07/25 15:28) Unknown Fragrance Allergy (Severe, Uncoded 09/24/24 10:56) Anaphylaxis Fructose Allergy (Severe, Uncoded 09/24/24 10:56) Anaphylaxis Latex Allergy (Severe, Uncoded 09/24/24 10:56) Anaphylaxis Sulfacet-R Allergy (Severe, Uncoded 09/24/24 10:56) Anaphylaxis HPI HPI s/p EGD: Details: Assessment & Plan (1) GERD (gastroesophageal reflux disease): Code(s): K21.9 - Gastro-esophageal reflux disease without esophagitis Category: Medical (2) Irritable bowel syndrome with both constipation and diarrhea: Code(s): K58.2 - Mixed irritable bowel syndrome Category: Medical (3) Chronic nausea: Code(s): R11.0 - Nausea Category: Medical Plan She is having great trouble getting her creon through the pharmacies, and she is considering changing to [employer] mail order. She will let me know. She is exercising at the gym and her clothes are fitting looser, but she has not lost weight. This may be muscle weight. She found the Miralax very helpful for her CIC. She is currently on omeprazole 40mg bid, miralax and creon. She has had some trouble getting through to our office, but she was calling the main phone # and I give her our direct line. ROV 6 mmos. EGD EGD Findings:? * Esophagus:? Normal mucosa noted in the entire esophagus. The Z line was at 35 cm and displaced by a hiatal hernia with the pinch at 39 cm. Random esophagus forceps biopsies were obtained to rule out eosinophilic esophagitis. * Stomach:? Erythema erosions and scant heme noted in the antrum. Retroflexion was performed in the cardia. Cold forceps biopsies were taken from the gastric body and antrum. * Duodenum:? Erythema, edema noted in the duodenal bulb, remaining mucosa normal to the extent examined. Cold forceps biopsies were taken from the duodenal bulb for histology. ? EGD Impressions:? * Normal esophagus (biopsy) * Hiatal hernia * Gastritis (biopsy) * Duodenitis (biopsy)?? Recommendations:?? * Follow biopsy results. Our office will call or send a letter with results within 7-10 days. * Continue PPI therapy. * Patient takes meloxicam as OP. Advised to stop this. Tylenol is ok. * If H pylori +, patient will be prescribed eradication therapy followed by test of cure. BIOPSY Received: 03/11/25 Diagnosis A. Duodenum, biopsy: Duodenal mucosa within normal limits. B. Stomach, antrum, biopsy: Antral-type mucosa with mild chronic inactive inflammation and regenerative changes; no Helicobacter organisms seen. C. Stomach, body, biopsy: Oxyntic mucosa within normal limits; no Helicobacter organisms seen. D. Esophagus, random, biopsy: Squamous epithelium within normal limits; no inflammation seen. TODAY'S VISIT [facility] Medical History Lack of appetite Food aversion Constipation Diarrhea Chronic nausea Uses hearing aid Hearing loss Insomnia Osteopenia Hypothyroidism Asthma Overweight (BMI 25.0-29.9) Surgical History History of esophagogastroduodenoscopy (EGD) Hx of colonoscopy Hx of breast reduction, elective History of intraocular lens implant History of dental anabaptism Hx of appendectomy History of bladder suspension procedure Family History Father Colon cancer Mother Bone loss Blindness Brother Obesity Brother No problems noted. Sister No problems noted. Son No problems noted. Daughter No problems noted. Social History Are you a primary spiritual care coordinator to a significant other at home: No Do you presently have visiting nurse or other home services: No Alcohol intake: never Patient Tobacco Use Status: Never used Tobacco Review of Systems Const Denies fatigue, Denies fever(s), Denies night sweats, Reports poor appetite and Denies weight loss Eyes Details: Glasses Reports requires corrective lenses ENT Reports Normal hearing present, Denies dental pain, Denies dysphagia, Denies hearing loss, Denies mouth pain, Denies odynophagia, Denies throat swelling, Denies tongue swelling and Reports other (Dentition adequate) Card Reports no additional complaints Resp Reports no additional complaints GI Details: Denies abdominal pain, Denies melena, Reports bloating, Denies hematochezia, Reports constipation, Denies GI cramping, Denies dysphagia, Denies excessive flatus, Denies early satiety, Reports heartburn, Denies diarrhea, Denies nausea, Denies odynophagia, Denies vomiting and Denies hematemesis Skin/Breast Denies pruritus, Denies lesions, Denies rash and Denies jaundice Neuro Reports Normal hearing present, Denies Abnormal speech present and Reports Sensory deficit (Neuro) (Lack of sense of taste) Endo Denies fatigue Aller/Immun Denies throat swelling and Denies tongue swelling Physical Exam Vital Signs: Last Vital Signs Pulse 88 04/07/25 15:12 BP 145/81 H 04/07/25 15:12 Const General: cooperative, no acute distress, well developed and well groomed Nutritional Appearance: well nourished and obese Orientation/consciousness: oriented to person, oriented to place and oriented to time Limitations: No language barrier HEENT Head: Yes normocephalic and Yes atraumatic Eyes General: appearance normal, both eyes and all related structures Pupils: Equal, round and reactive pupils present Neck Neck: Yes normal visual inspection and Yes no lymphadenopathy Thyroid: Thyroid normal Resp Effort & Inspection: normal respiratory effort and able to speak in complete sentences Auscultation: clear to auscultation bilaterally Cardio Rate: regular rate Rhythm: regular rhythm Heart sounds: Normal, physiologic split S2 sound present Peripheral pulses: radial pulses present and posterior tibial pulses present GI Inspection: No distended, No Abdominal panniculus present and Yes obesity Palpation (GI): Soft to palpation, nontender, no guarding, not rigid and No hepatosplenomegaly present Percussion: Yes normal to percussion Auscultation: normal bowel sounds Rectal Exam - Female: deferred Skin General skin exam: no rashes or lesions noted, turgor normal, skin not dry, no jaundice, No spider nevi and no striae Rashes: no rashes Nails: normal Neuro General: oriented to person, oriented to place and oriented to time Cranial nerves: Yes Equal, round and reactive pupils present and Yes Normal hearing present Speech: No Abnormal speech present Sensory Exam: Sensory deficit (Neuro) (Lack of sense of taste) Extrem General: Yes normal to inspection, No clubbing, No cyanosis and No edema Psych Appearance: grossly normal and well kempt Mental Status: mental status grossly normal Speech and movement: Normal speech and movement present Affect: normal affect Attitude: cooperative Thought process: Normal thought process present and not confabulating Thought content: Normal thought content present Insight: Fair insight present (Psych) Judgement: Fair judgement present (Psych) Results Reviewed Results Reviewed: EGD EGD Findings:? * Esophagus:? Normal mucosa noted in the entire esophagus. The Z line was at 35 cm and displaced by a hiatal hernia with the pinch at 39 cm. Random esophagus forceps biopsies were obtained to rule out eosinophilic esophagitis. * Stomach:? Erythema erosions and scant heme noted in the antrum. Retroflexion was performed in the cardia. Cold forceps biopsies were taken from the gastric body and antrum. * Duodenum:? Erythema, edema noted in the duodenal bulb, remaining mucosa normal to the extent examined. Cold forceps biopsies were taken from the duodenal bulb for histology. ? EGD Impressions:? * Normal esophagus (biopsy) * Hiatal hernia * Gastritis (biopsy) * Duodenitis (biopsy)?? Recommendations:?? * Follow biopsy results. Our office will call or send a letter with results within 7-10 days. * Continue PPI therapy. * Patient takes meloxicam as OP. Advised to stop this. Tylenol is ok. * If H pylori +, patient will be prescribed eradication therapy followed by test of cure. BIOPSY Received: 03/11/25 Diagnosis A. Duodenum, biopsy: Duodenal mucosa within normal limits. B. Stomach, antrum, biopsy: Antral-type mucosa with mild chronic inactive inflammation and regenerative changes; no Helicobacter organisms seen. C. Stomach, body, biopsy: Oxyntic mucosa within normal limits; no Helicobacter organisms seen. D. Esophagus, random, biopsy: Squamous epithelium within normal limits; no inflammation seen Assessment & Plan Assessment & Plan (1) GERD (gastroesophageal reflux disease): Code(s): K21.9 - Gastro-esophageal reflux disease without esophagitis Category: Medical (2) Irritable bowel syndrome with both constipation and diarrhea: Code(s): K58.2 - Mixed irritable bowel syndrome Category: Medical (3) Tubular adenoma of colon: Comment: 2013 [facility]=TA, 2020 [facility]=TA repeat 5 years aeb Code(s): D12.6 - Benign neoplasm of colon, unspecified Category: Medical (4) Constipation: Code(s): K59.00 - Constipation, unspecified Category: Medical (5) Chronic nausea: Code(s): R11.0 - Nausea Category: Medical Plan She is currently on omeprazole 40mg bid, miralax and creon. Subjective Patient presents for follow-up of upper GI symptoms and bowel habit changes. Reports persistent heartburn despite omeprazole, describing burning ?from here to here.? She has been taking omeprazole 40 mg twice daily consistently without lapses and uses Tums a couple of times daily for breakthrough symptoms. Over the past month she notes markedly decreased appetite with minimal hunger; often eats only because she feels she should. She reports long-standing diminished taste and smell with perception mostly of sweets, not new. Bowel habits have shifted toward constipation: stools are hard, and she may go 3?4 days without a bowel movement; she can feel the urge but has difficulty passing stool. Has intermittently used glycerin suppositories with limited effect. Previously used MiraLAX daily with good effect, later switched to prunes/prune juice (previously helpful) but these no longer work. She continues pancreatic enzyme replacement (Creon). She takes pilocarpine for dry mouth. Meloxicam (for shoulder pain) was stopped following recent endoscopy; shoulder pain improved after a steroid injection. Historical pattern included alternating diarrhea/constipation, but no diarrhea for ~6 months. Relevant Past Medical, Social, and Family History - Hypothyroidism with very low apache thyroid output; on replacement therapy. Prior severe febrile illness years ago (fever up to 106?F) after which thyroid dysfunction and taste loss began. Appendectomy in the past. Primary care: Franky Arreola MD. Objective - Upper endoscopy: erosions in the antrum consistent with NSAID-related mucosal injury; no other concerning findings endoscopically. Duodenal biopsies negative for intestinal irritation. No evidence reported to suggest H. pylori. Assessment & Plan Heartburn with antral erosions (likely NSAID-associated gastritis/peptic injury): Heartburn persists despite PPI, in the context of EGD showing antral erosions likely related to prior meloxicam use; breakthrough symptoms may be exacerbated by current constipation. - Continue omeprazole 40 mg twice daily. - Avoid NSAIDs; remain off meloxicam. - Treat constipation aggressively (see below) as this may reduce reflux symptoms. - Order right upper quadrant ultrasound to evaluate gallbladder for cholelithiasis as a potential contributor to refractory upper GI symptoms. - Education provided regarding ulcer risk if off PPI given antral erosions. Constipation, new/worsening over ~1 month with hard stools: Likely multifactorial; hypothyroidism may be contributing. - Start a soluble fiber supplement (Benefiber or Citrucel) powder twice daily; may titrate as needed. - Start senna 1?2 tablets at bedtime; [id number] acceptable. Use short term while underlying drivers are addressed. - May use MiraLAX if preferred or if additional softening is needed. - Encourage consistent regimen and reassess response. Hypothyroidism?evaluate for suboptimal control: Prior TSH increased from 1.37 (2022) to 3.97 (October), and constipation has worsened. - Order thyroid function tests (TSH, per lab protocol). Non-fasting; patient may go today. - I will contact the patient with results; coordinate dose adjustment with PCP (Franky Arreola MD) if abnormal. Pancreatic exocrine insufficiency on enzyme replacement - Continue current Creon regimen. Chronic dysgeusia/hyposmia - Long-standing and stable; monitor. Follow-up: Return in 5 weeks. I will reach out sooner if thyroid results are significantly off. Ultrasound scheduling will be coordinated by radiology; timing may extend beyond the follow-up visit. Orders: Orders TSH reflex Free T4 Today K59.00 - Constipation, unspecified Comprehensive Met. Panel Today K59.00 - Constipation, unspecified US abdomen complete Today K21.9 - Gastro-esophageal reflux disease without esophagitis, R11.0 - Nausea Medications: New sennosides (Senna Laxative) 17.2 mg (2 x 8.6 mg) PO BEDTIME 60 tabs 6RF Coding Level of Care Code Est Pt Level 4 (57789) Diagnoses GERD (gastroesophageal reflux disease) K21.9 Irritable bowel syndrome with both constipation and diarrhea K58.2 Tubular adenoma of colon D12.6 Constipation K59.00 Chronic nausea R11.0 Time Spent (min) 34
== END 2025-04-07 16:00 | disposition home or self-care (01) ==
LOC: HO.HGI 15:08
PROVIDERS: PCP Internal Medicine; Visit Provider Nurse Practitioner
DX: K21.9 Gastro-esophageal reflux disease without esophagitis (principal); K58.2 Mixed irritable bowel syndrome; D12.6 Benign neoplasm of colon, unspecified; K59.00 Constipation, unspecified; R11.0 Nausea
CPT/HCPCS: 99214

== ENCOUNTER 2025-04-07 15:08 | Outpatient (REF) | payer MEDICARE, SELFPAY ==
[2025-04-07 17:55] LABS: Alanine Aminotransferase 19 U/L (0-31); Albumin Level 4.2 g/dL (3.5-5.0); Alkaline Phosphatase 94 U/L (39-117); Anion Gap 13 (12-20); Aspartate Amino Transferase 18 U/L (5-31); Blood Urea Nitrogen 19 mg/dL (9-16); Calcium 9.4 mg/dL (8.4-10.2); Carbon Dioxide 25 mmol/L (22-29); Chloride 105 mmol/L (96-108); Estimated Glomerular Filt Rate > 60; Potassium 4.3 mmol/L (3.3-5.1); Sodium 139 mmol/L (135-145); Total Protein 7.0 g/dL (6.5-8.0)
== END 2025-04-07 15:09 | disposition home or self-care (01) ==
LOC: HO.LAB 15:08
PROVIDERS: PCP Internal Medicine; Visit Provider Nurse Practitioner
DX: K58.2 Mixed irritable bowel syndrome (principal); K21.9 Gastro-esophageal reflux disease without esophagitis; D12.6 Benign neoplasm of colon, unspecified; R12 Heartburn; Z79.899 Other long term (current) drug therapy
CPT/HCPCS: 36415; 80053; 84443; 99212

== ENCOUNTER 2025-05-15 10:23 | Outpatient (REF) | payer MEDICARE, SELFPAY ==
--- NOTE | ~2025-05-15 | US_ITS ---
CLINICAL HISTORY: R11.0 - Nausea, GERD US abdomen complete Comparison: None provided Findings: The visualized pancreas is normal. The aorta and inferior vena cava are normal caliber. The appearance of the liver suggests fatty infiltration. There is no intrahepatic bile duct dilatation. The common duct is 2.0 mm in diameter. The gallbladder is normal. There is no sonographic Carias sign. The main portal vein is antegrade. The right kidney is 10.1 cm in length. There is a 1.7 x 1.6 x 1.3 cm right renal cortical Bosniak 1 cyst. The left kidney is 10.9 cm in length. The spleen is normal. No ascites. IMPRESSION: 1. Hepatic steatosis. This document has been electronically signed by: Derrell Samaniego MD on 05/16/2025 11:11:59
--- OUTSIDE RECORDS SUMMARY | 2025-05-15 10:25 | XMS_ITS | Encounter Summary ---
Author Organization [facility] Address [address] [facility] [address] [place] [address] Phone Care Team Providers Care Director Of Training Name Role Phone Franky Estevez Primary Care Provider [phone] Encounter Details Date Type Department Care Team (Latest Contact Info) Description 10/23/2022 Transcribe Orders Virtual Department [address] [place] [address] Gabi Fishman PA [address] [place] [address] [place] [address] Acute bronchiolitis due to other specified organisms [...] organisms documented in this encounter Care Teams Director Of Training Relationship Specialty Start Date End Date Franky Estevez DO PCP - General Internal Medicine 05/23/17 documented as of this encounter Additional Source Comments The information contained in this document represents components of the legal health record. It is not the complete legal health record.[facility]
--- OUTSIDE RECORDS SUMMARY | 2025-05-15 10:25 | XMS_ITS | Encounter Summary ---
Author Organization [facility] Address [address] [address] Phone Care Team Providers Care Sales And Business Development Manager Name Role Phone Franky Estevez Primary Care Provider [phone] Encounter Details Date Type Department Care Team (Late st Contact Info) Description 06/09/2022 Ancillary Orders Virtual Department [address] [place] [address] Gabi Fishman PA [address] [place] [address] [place] [address] Osteopenia, unspecified location; Other specified disorders of [...] site documented in this encounter Care Teams Sales And Business Development Manager Relationship Specialty Start Date End Date Franky Estevez DO PCP - General Internal Medicine 05/23/17 documented as of this encounter Additional Source Comments The information contained in this document represents components of the legal health record. It is not the complete legal health record.[facility]
--- OUTSIDE RECORDS SUMMARY | 2025-05-15 10:25 | XMS_ITS | Encounter Summary ---
Author Organization [facility] Address [address] [facility] [address] [place] [address] Phone Care Team Providers Care Ceiling Insulation Blower Name Role Phone Franky Estevez DO Primary Care Provider [phone] Encounter Details Date Type Department Care Team (Latest Contact Info) Description 06/13/2022 Transcribe Orders Virtual Department [address] [place] [address] Gabi Fishman PA [address] [place] [address] [place] [address] RLQ abdominal pain (Primary Dx) Social History [...] quadrant documented in this encounter Care Teams Ceiling Insulation Blower Relationship Specialty Start Date End Date Franky Estevez DO [email or web address] PCP - General Internal Medicine 05/23/17 documented as of this encounter Additional Source Comments The information contained in this document represents components of the legal health record. It is not the complete legal health record.[facility]
--- OUTSIDE RECORDS SUMMARY | 2025-05-15 10:25 | XMS_ITS | Patient Health Record ---
Author Organization [facility] Address [address] [place] [address] Care Team Providers Care Steel Layout Worker Name Role Phone Franky Estevez Primary Care Provider Pan Patterson [phone] Allergies Allergen (clinical drug ingredient) Drug/Non Drug Allergy documented on EMR Reaction Allergy Type Onset Date Status Fragrance (uncoded) Unknown Allergy Active latex/natural rubber (uncoded) Unknown Allergy Active Substance with sulfonamide structure and antibacterial mechanism of action (substance) Sulfa (uncoded) Unknown Allergy Active amoxicillin Amoxicillin Unknown Drug Allergy Act harika citalopram Celexa Unknown Drug Allergy Active Fructose Unknown Drug Allergy Active Reason For Referral No Information Medications Medication SIG (Take, Route, Frequency, Duration) Notes Start Date End Date Status Omeprazole 20 MG Capsule Delayed Release 1 Orally BID Active Atorvastatin Calcium Active Liothyronine Sodium Active Montelukast Sodium A ctive Sertraline HCl Activ e Vitamin D 25 MCG (1000 UT) Tablet 1 tablet Orally Once a day; Duration: 30 day(s) Active Vitamin C 500 MG Capsule as directed Orally Active Probiotic - Capsule as directed Orally Active Vitamin A Active Levothyroxine Sodium Active Albuterol Sulfate HFA Active Social History Social History Additional Details Category Social Info Options Details Miscellaneous: Marital status: 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 Section 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: Nonsmoker; no sig alcohol Problems Problem Type SNOMED Code ICD Code Onset Dates Problem Status W/U Status Risk Notes Problem History of polyp of colon (situation) (187472578) History of colon polyps (Z86.010) Active confirmed Problem Gastroesophageal reflux disease (781586228) Gastroesophageal reflux disease, esophagitis presence not specified (K21.9) Active confirmed Problem Family History of Cancer of Colon (Situation) (350434035) Family history of colon cancer (Z80.0) Active confirmed Problem Irritable bowel syndrome (27916228) Irritable bowel syndrome with both constipation and diarrhea (K58.2) Active confirmed Plan Of Treatment No Information Insurance Providers Payer Name Payer Address Payer Phone Subscriber Number Group Number Insured Name Patient Relationship to Insured Coverage Start Date Coverage End Date MEDICARE OF [place] [address] [place] [id number] [phone] [id number] JENNIFER MICHAEL Self - patient is the insured MED[employer] ATTN CLAIMS [address] [place] [address] [id number] JENNIFER MICHAEL Self - patient is the insured Medical (General) History Medical History History ICD Code Asthma Hypothyroidism Hyperlipidemia GERD--previous EGD with Dr. Becker Anxiety Hx of colon polyps-1 colonos copy with a previous GI MD and [address] 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
--- OUTSIDE RECORDS SUMMARY | 2025-05-15 10:25 | XMS_ITS | Encounter Summary ---
Author Organization [facility] Address [address] [facility] [address] [place] [address] Phone Care Team Providers Care Barrel Endshake Adjuster Name Role Phone Franky Estevez DO Primary Care Provider [phone] Encounter Details Date Type Department Care Team (Late st Contact Info) Description 03/10/2022 Procedure Pass [address] [address] Social History Tobacco Use Types Packs/Day Years [...] on filedocumented in this encounter Care Teams Barrel Endshake Adjuster Relationship Specialty Start Date End Date Franky Estevez DO [email or web address] PCP - General Internal Medicine 05/23/17 documented as of this encounter Additional Source Comments The information contained in this document represents components of the legal health record. It is not the complete legal health record.[facility]
--- OUTSIDE RECORDS SUMMARY | 2025-05-15 10:25 | XMS_ITS | Encounter Summary ---
Author Organization [facility] Address [address] [facility] [address] [place] [address] Phone Care Team Providers Care Welding Pantograph Operator Name Role Phone Franky Estevez DO Primary Care Provider [phone] Encounter Details Date Type Department Care Team (Late st Contact Info) Description 03/10/2022 Procedure Pass [facility], [address] [address] Social History Tobacco Use Types Packs/Day Years [...] on filedocumented in this encounter Care Teams Welding Pantograph Operator Relationship Specialty Start Date End Date Franky Estevez DO [email or web address] PCP - General Internal Medicine 05/23/17 documented as of this encounter Additional Source Comments The information contained in this document represents components of the legal health record. It is not the complete legal health record.[facility]
--- OUTSIDE RECORDS SUMMARY | 2025-05-15 10:26 | XMS_ITS | Encounter Summary ---
Author Organization [facility] Address [address] [place] [address] [place] [address] Phone Care Team Providers Care Spanish Language Lecturer Name Role Phone Stanarun Franky Faith VILLAR Primary Care Provider [phone] Reason for Referral * Physical Therapy (Routine) - Closed Specialty Diagnoses / Procedures Referred By Amisha alvarez Referred To Contact Physical Therapy Diagnoses Encounter for rehabilitation Pan Coleman MD Phone: tel: fax: [email or web address] [address] [place] [address] Phone: tel: Referral ID Status Reason Start Date Expiration Date Visits Re quested Visits Authorized [id number] Closed 01/11/2021 05/20/2021 99 99 Encounter Details Date Type Department Care Team (Latest Contact Info) Description 01/11/2021 Transcribe Orders [facility] [address] [place] [address] Pan Coleman MD [address] [facility], [address] [place] [address] [email or web address] Encounter for rehabilitation (Primary Dx) Social History [...] Date/Time Associated Diagnosis Comments AMB REFERRAL TO [facility] Routine 01/18/2021 12:40 PM EDT Encounter for rehabilitation documented in this encounter Results * Ambulatory referral to [facility] Physical Therapy (01/18/2021 12:40 PM EDT) Other us Pan Coleman MD AMB [facility] REFERRALS Final R esult documented in this encounter Visit Diagnoses Diagnosis Encounter for rehabilitation- Primary documented in this encounter Care Teams Spanish Language Lecturer Relationship Specialty Start Date End Date Franky Estevez DO [email or web address] PCP - General Internal Medicine 05/23/17 documented as of this encounter Additional Source Comments The information contained in this document represents components of the legal health record. It is not the complete legal health record.[facility]
--- OUTSIDE RECORDS SUMMARY | 2025-05-15 10:26 | XMS_ITS | Encounter Summary ---
Author Organization [facility] Address [address] [place] [phone] Phone Care Team Providers Care Insurance Marketing Specialist Name Role Phone Franky Estevez DO Primary Care Provider [phone] Encounter Details Date Type Department Care Team (Late st Contact Info) Description 07/16/2017 Ancillary Orders Virtual Department [address] [place] [address] Franky Estevez DO [address] [facility] [place] [place] [address] [email or web address] Screening for osteoporosis; Breast screening Social History [...] breast tissue is almost entirely fat. POS -[id number] Narrative 09/26/2017 2:18 PM EDT Bilateral full-field [...] breast tissue is almost entirely fat. POS -[id number] Franky Estevez DO IMG MG EXAMS Final Result documented in this encounter Visit Diagnoses Diagnosis Screening for osteoporosis Special screening for osteoporosis Breast screening Breast screening, unspecified Breast screening Breast screening, unspecified documented in this encounter Care Teams Insurance Marketing Specialist Relationship Specialty Start Date End Date Franky Estevez DO PCP - General Internal Medicine 05/23/17 documented as of this encounter Additional Source Comments The information contained in this document represents components of the legal health record. It is not the complete legal health record.[facility]
--- OUTSIDE RECORDS SUMMARY | 2025-05-15 10:26 | XMS_ITS | Encounter Summary ---
Author Organization [facility] Address [address] [place] [address] [address] [place] [address] Phone Care Team Providers Care Bottling Supervisor Name Role Phone Franky Estevez DO Primary Care Provider [phone] Encounter Details Date Type Department Care Team (Latest Contact Info) Description 07/29/2021 Transcribe Orders Virtual Department [address] [place] [address] Ligia Cowan MD [address] [place] [address] [address] [place] [address] [email or web address] Breast screening (Primary Dx) Social History Tobacco [...] unspecified documented in this encounter Care Teams Bottling Supervisor Relationship Specialty Start Date End Date Franky Estevez DO PCP - General Internal Medicine 05/23/17 documented as of this encounter Additional Source Comments The information contained in this document represents components of the legal health record. It is not the complete legal health record.[facility]
--- OUTSIDE RECORDS SUMMARY | 2025-05-15 10:26 | XMS_ITS | Encounter Summary ---
Author Organization [facility] Address [address] [place] [address] [address] [place] [address] Phone Care Team Providers Care Automobile Repair Service Estimator Name Role Phone Franky Estevez DO Primary Care Provider [phone] Encounter Details Date Type Department Care Team (Late st Contact Info) Description 01/15/2019 Ancillary Orders [facility] [address] [place] [address] Thierno King MD [address] [facility] [address] [place] [address] [email or web address] Pain Social History Tobacco Use Types Packs/Day [...] Left breast pain and lumps POS - [id number] Narrative 02/10/2019 1:45 PM EDT Full field [...] Left breast pain and lumps POS - [id number] Thierno King MD [facility] BREAST Final Result documented in this encounter Visit Diagnoses Diagnosis Pain Generalized pain Pain Generalized pain documented in this encounter Care Teams Automobile Repair Service Estimator Relationship Specialty Start Date End Date Franky Estevez DO [email or web address] PCP - General Internal Medicine 05/23/17 documented as of this encounter Additional Source Comments The information contained in this document represents components of the legal health record. It is not the complete legal health record.[facility]
--- OUTSIDE RECORDS SUMMARY | 2025-05-15 10:26 | XMS_ITS | Data Portability ---
Author Organization [facility], Telehealth Patient Home Address [address] [place] [address] Assessment Encounter Date Assessment Date Assessment LastModified by Organization Details LastModified Time 10/24/2024 10/24/2024 [address] [place] [address] (LENS INSERTER) MDM HIGH MUST MEET 2 OUT OF [...] Time Details Appointments FOLLOW UP 15 2024 03:30P M DR BRUNO Not available Not available Not available ANNUAL EXAM 2025 03:30P M VINAY QUEZADA Not available Not available Not available Lab TSH + free T4, serum 2024 025 [facility], [address] [place] [address], [place], [address], 05/11/2025 10:54:27 urinalysi s complete, reflex culture 2024 025 [facility], [address] [place] [address], [address], 12/31/2024 12:50:36 lipid panel, blood 2023 024 [facility], [address] [place] [address], [address], 04/15/2024 16:18:51 CMP, serum or plasma 2023 024 [facility], [address] [place] [address], [address], 04/15/2024 16:18:51 CBC w/ auto diff 2023 024 [facility], [address] [place] [address], [address], 04/15/2024 16:18:51 TSH + free T4, serum 2023 024 [facility], [address] [place] [address], [address], 04/15/2024 16:18:51 Referral None recorded. Procedures None recorded. Surgeries None recorded. Imaging XR, shoulder, 2 or more view 2024 025 [facility], [address] [place], [address], 10/29/2024 21:14:55 Medication Orders topiramat e 25 mg tablet [address] [facility] #2024, [address] [place], [address], 05/11/2025 10:46:03 prednison e 10 mg tablet [address] [facility]2024, [address] [place], [address], 12/30/2024 11:49:01 ciproflox acin 500 mg tablet [address] [facility] #2024, [address] [place], [address], 01/13/2025 05:01:00 mupirocin 2 % topical ointment [address] [facility] #2024, [address] [place], [address], 10/24/2024 15:24:30 meloxicam 15 mg tablet [address] [facility]2024, [address] [place], [address], 08/20/2024 14:27:01 Patient TargetsNo targets recorded. Patient Instructions Encounter Date Encounter Id Patient Instructions Last Modified By Organization Details Last Modified Time 10/24/2024 [id number] learning about asthma Not available 10/24/2024 15:24:29 hypothyroidism: care instructions Not available 10/24/2024 15:24:29 Reason for Referral None Reported. Results Created Date Observation Date Name Description Value Unit Range Abnormal Flag Note LastModifiedBy Organization Detail LastModifiedTime 10/30/19 25 10/28/2024 XR, shoul ilia, 2 or more view No observ ation record ed. [facility] [address], [place], [address], 10/31/2024 15:08:07 Result Notes None recorded. Problems Name Problem SNOMED Code Status Onset Date Resolution Date Notes Provider Name and Address Organization Details Recorded Time Disorder of urinary bladder 51760740 Active 2017 Naila meza [facility] 8 08:34:35 Asthma 559435073 Completed 201702/17/2019 VINAY QUEZADA [address] [place], [address], [facility] 4 12:06:17 Hypothyr oidism 83232768 [facility] 08:34:55 Gastroes ophageal reflux disease 028152456 Active 2017 [facility] 8 08:36:01 Hypercho lesterol emia 08803121 Active 2017 [facility] 8 08:37:16 Insomnia 939508160 Active 2017 [facility] 8 08:37:25 Esophagi tis 71628491 Active 2017 [facility] 8 08:37:36 Gastriti s 4258575 Active 2017 [facility] 8 08:37:46 Hiatal hernia 04091736 Active 2017 [facility] 8 08:38:00 Osteopen ia 950928647 Active 2017 Franky Bruno DO [address] [place], [address], [facility] 8 12:32:20 Mild intermit tent asthma 458889760 Active 2018 SALO Bar [address] [place], [address], [facility] 9 10:41:12 Moderate recurren t major depressi on 54345977 Active 2018 SALO Bar [address] [place], [address], [facility] 9 10:42:07 Pain in throat 370668580 Active 2021 VINAY QUEZADA [address] [place], [address], [facility] 2 14:07:49 Cough 86704187 Active 2021 VINAY QUEZADA [address] [place], [address], [facility] 2 14:08:06 Taste sense altered 162075941 Active 2021 VINAY QUEZADA [address] [place], [address], [facility] 2 12:27:03 Otalgia of right ear 2376177399 Active 2021 could be migraine with her symptoms VINAY QUEZADA [address] [place], [address], [facility] 3 14:55:24 Dysuria 21427982 Active 2021 VINAY QUEZADA [address] [place], [address], [facility] 5 11:03:25 Xerostom ia 88847634 Active 2022 Franky Bruno DO [address] [place] [address], [address], [facility] 5 15:20:56 Anxiety 70116573 Active 2022 VINAY QUEZADA [address] [place] [address], [address], [facility] 3 16:45:11 Sleep apnea 57139045 Active 2022 VINAY QUEZADA [address] [place] [address], [address], [facility] 3 11:46:14 Vertigo 038738166 Active 2022 Franky Bruno DO [address] [place] [address], [address], [facility] 3 10:37:28 Recurren t labyrint hitis 398243795 Active 2022 Franky Bruno DO [address] [place] [address], [address], [facility] 3 22:23:24 Acute urinary tract infectio n 899101260 Active 2023 VINAY QUEZADA [address] [place], [address], [facility] 5 11:42:58 Acquired trigger finger of right ring finger 3576762860 38553 Active 2023 VINAY QUEZADA [address] [place], [address], [facility] 4 11:43:57 Depressi ve disorder 78420686 Active 2023 VINAY QUEZADA [address] [place], [address], [facility] 4 11:53:05 Asthma 921591719 Active 2023 VINAY QUEZADA [address] [place], [address], [facility] 4 12:06:17 Tendinit is of right biceps femoris Active 2024 VINAY QUEZADA [address] [place], [address], [facility] 5 14:24:17 Biceps tendinit is 344086971 Active 2024 VINAY QUEZADA [address] [place], [address], [facility] 5 14:26:18 Biceps tendinit is 841461371 Active 2024 VINAY QUEZADA [address] [place], [address], [facility] 5 14:26:25 Osteoart hritis of joint of bilatera l hands 9379699740 58100 Active 2024 Franky Bruno DO [address] [place], [address], [facility] 5 15:17:25 Left ring finger blister with infectio n Active 2024 Franky Bruno, DO [address] [place] [address], [address], [facility] 5 15:23:27 Pain of right shoulder region Active 2024 Franky Bruno, [address], [address], [facility] 5 15:25:54 Menopaus al symptom 52574004 Active 2024 Franky Bruno, [address], [address], [facility] 5 15:27:40 Pain of elbow region 25019363 Active 2024 Franky Bruno, [address], [address], [facility] 5 14:56:30 Contact dermatit is caused by urushiol from Eastern poison paulo 300483480 Active 2024 VINAY QUEZADA [address] [place] [address], [address], [facility] 5 11:44:25 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 Medical Equipment None Reported. Allergies Allergen ID Allergen Name Allergen Category Reaction Reaction Severity Criticality Documentation Date Start Date Code Code System Note Provider Name and Address Organization Details Recorded Time 99725 Adhesive agent (substanc e) environme nt,medica tion Not available Not available Not available 04/21/20252022 27082 0007 SNOMED Other react ion(s ): also plast ic gives her a rash, Rash Not Available [employer] - External Data Service - prod 5 03:43:54 42316 sulfameth oxazole / trimethop rim medicatio n Not available Not available Not available 04/21/20252017 61941 RxNorm unrec ogniz ed react ion (text : Jelena wn, code: 98740 5006) (from exter nal sourc e) Not Available [employer] - External Data Service - prod 5 03:43:54 96207 citalopra m medicatio n Not available Not available Not available 04/21/20252017 2556 RxNorm unrec ogniz ed react ion (text : Jelena wn, code: 77282 5006) (from exter nal sourc e) Not Available [employer] - External Data Service - prod 5 03:43:54 54332 Latex (substanc e) environme nt,medica tion rash swelling Not available Not available [facility] 04/21/20252017 89843 8007 SNOMED Other react ion(s ): Unkno wn Not Available [employer] - prod 5 03:43:54 55617 Substance with sulfonami de structure and antibacte rial mechanism of action (substanc e) medicatio n Not available Not available Not available 04/21/20252017 59457 8003 SNOMED Other react ion(s ): Unkno wn unrec ogniz ed react ion (text : Jelena hernandez, code: 43404 5006) (from exter nal sourc e) Not Available [employer] External Data Service - prod 5 03:43:54 1419 amoxicill in medicatio n Not available Not available Not available 10/09/2017 723 RxNorm Naila meza [facility] 8 08:33:50 1420 Celexa medicatio n Not available Not available Not available 10/09/2017 76416 8 RxNorm Naila meza [facility] 8 08:34:02 1421 Bactrim medicatio n Not available Not available Not available 10/09/2017 18199 9 RxNorm Naila Igel susana [facility] 8 08:34:11 1422 latex environme nt,medica tion Not available Not available Not available 10/09/2017 09680 91 RxNorm Naila Sotol susana [facility] 8 08:34:21 3935 fructose food,medi cation Not available Not available Not available 11/18/2019 4570 RxNorm stoma ch issue s [facility] 0 09:48:44 Medications Name Sig Start Date [...] e 25 mcg tablet TAKE 1 TABLET DAILY active [...] Not Available Not Available No t Available topiramate 25 mg tablet Take 1 tablet every day by oral route as directed for 30 days. 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 technician 1 mg over 3 days transdermal patch [...] (BMI) Body weight Heart rate Oxygen saturation Systolic And Diastolic Provider Name and Address Organization Details Last Updated DateTime 5 154.94 cm 30.4 kg/m2 32744.3 7 g 88 /min 98 % 128/88 mm[Hg] Kisha Aldridge [facility] 5 14:02:59 Date Recorded Body height Body mass index (BMI) Body weight Oxygen saturation Heart rate Systolic And Diastolic Provider Name and Address Organization Details Last Updated DateTime 5 154.94 cm 30.8 kg/m2 35808.8 4 g 98 % 86 /min 128/74 mm[Hg] GOPAL SUAREZ [facility] 5 15:00:33 Date Recorded Body height Body mass index (BMI) Body weight Oxygen saturation Heart rate Systolic And Diastolic Provider Name and Address Organization Details Last Updated DateTime 5 154.94 cm 30.6 kg/m2 90762.9 6 g 96 % 88 /min 126/76 mm[Hg] Kisha Aldridge [facility] 5 11:37:44 Date Recorded Body height Body mass index (BMI) Body weight Heart rate Oxygen saturation Systolic And Diastolic Provider Name and Address Organization Details Last Updated DateTime 4 154.94 cm 30.5 kg/m2 21964.5 3 g 89 /min 95 % 138/88 mm[Hg] Junie Saleem [facility] 4 15:48:30 Date Recorded Body height Body mass index (BMI) Body weight Heart rate Oxygen saturation Systolic And Diastolic Provider Name and Address Organization Details Last Updated DateTime 5 154.94 cm 30.6 kg/m2 90441.9 6 g 92 /min 93 % 110/60 mm[Hg] Kisha Aldridge [facility] 5 10:00:48 Social History Question Answer Notes LastModified by Organizat ion Details LastModified Time Tobacco Smoking Status Never Smoker Not Available [employer] 03/23/2020 03:36:24 What Was The Date Of Your Most Recent Tobacco Screening? 05/11/2025 [email or web address] Information not available 05/11/2025 Sex: Unknown Functional Status Question Answer Note LastModified by Organization D etails LastModified Time Do you or have you ever used any other forms of tobacco or nicotine? No Information not available 11/05/2023 Mental Status None recorded. Family History Nothing Reported. Medical History No medical history recorded. Gynecological HistoryNo gynecological history recorded. Obstetrics History GPAL:G 0 P 0 0 0 0 Immunizations Vaccine Type Date Status Note Provider Nam e and Address Organization Details Recorded Time Influenza, split virus, quadrivalent, preservative 1 completed Molly meza [facility] 09/20/2021 12:09:47 influenza nasal, unspecified formulation 4 completed Franky Bruno, DO [address] [place] [address], [address], [facility] 02/10/2024 19:03:55 SARS-COV-2 (COVID-19) vaccine, UNSPECIFIED 4 completed Franky Bruno DO [address] [place] [address], [address], [facility] 02/10/2024 19:04:03 Influenza, split virus, quadrivalent, preservative 9 completed Madyson [facility] 11/18/2019 09:45:35 Influenza, split virus, quadrivalent, preservative 0 completed [facility] 07/12/2020 15:15:23 COVID-19, mRNA, LNP-S, PF, 30 mcg/0.3 mL dose 1 completed Franky Bruno DO [address] [place] [address], [address], [facility] 09/14/2020 14:09:56 COVID-19, mRNA, LNP-S, PF, 30 mcg/0.3 mL dose 1 completed Franky Bruno DO [address] [place] [address], [address], [facility] 09/14/2020 14:10:11 Past Encounters Encounter ID Performer Location Encounter Start Date Encounter Closed Date Diagnosis/Indication Diagnosis SNOMED-CT Code Diagnosis ICD10 Code Diagnosis IMO Codes Diagnosis Note [id number] Frank[address] Bruno [address],[place] [address] 10/09/2017 12:11:32 10/09/2017 12:44:23 Osteopenia 586561549 M85.9 needs labwork and referral to endocrine Candidiasis of mouth 797 38621 B37.0 thrush , oral will tx with diflucan po and use and refer if returns [id number] Franky Bruno [facility] [address],[place] [address] 11/12/2017 15:16:56 11/12/2017 16:37:25 Dysuria 22124756 R30.0 Urinary tr act infectious disease 44119202 N39.0 Painful ur ging to urinate 73998043 R30.0 Hypothyroidism 53022757 E03.9 stable, reviewed labs [id number] Franky Bruno [facility] [address] [place] [address] 12/21/2017 14:25:45 12/21/2017 15:47:47 Gastroesophageal reflux disease 376820434 K21.9 still very problemati c at times stops her from eating takes two omeprazole daily Hypothyroidism 04631682 E03.9 noted jump in tsh to 3.37 from 0.3 Hypercholesterolemia 136 07794 E78.00 last lab is excellent with good ldl and hdl Hernia of abdominal wall 213850656 K43.6 pt will call plastic surgeon from [facility] and will have an eval of her abdominal wall Asthma 828987225 J45.90 9 has required use of albuterol and has had some breakthrou gh needing treatment [id number] Franky Bruno [facility] [address] [place] [address] 05/06/2018 13:40:25 05/06/2018 14:10:59 Impingement syndrome of right shoulder region 9877799905 22102 M75.41 Hypothyroidism 29257547 E03.9 [id number] Franky Bruno [facility] [address] [place] [address] 07/15/2018 14:57:20 07/15/2018 15:32:23 Pre-surgery evaluation 067190399 Z01.818 patient is seen and evaluated for pre operative risk assessment for the proposed cataract surgery Her preop risk category is low and she is certainly cleared for the surgery under current KALIE guidelines patient understand s to take her meds on the day of her procedure and needs to withhold her naproxen now. [id number] Franky Bruno [facility] [address] [place] [address] 02/17/2019 10:09:51 02/17/2019 10:47:48 Acute cystitis 88770372 N30.01 Gastroesop hageal reflux disease 944754841 K21.9 stable with meds Moderate r ecurrent major depression 09694144 F33.1 stable with meds [id number] Franky Bruno [facility] [address] [facility],[place] [address] 11/18/2019 09:41:57 11/18/2019 10:17:23 Acute otitis media 7644944 H66.91 will treat ear infection patient is told to avoid using hearing aid until infection clears [id number] Franky Piercearun [facility] [address] [facility], [place] [address] 12/08/2019 11:29:09 12/08/2019 12:36:01 Mild intermittent asthma 346827049 J45.20 Has been well controlled with current treatment Seasonal allergy 2589113 04 J30.2 Sore throat in AM Recc OTC flonase at bedtime Xerostomia 50336746 R68. 2 Rec OTC dry mouth solutions Likely medication s related Uses nightime mouthguard Moderate r ecurrent major depression 08118735 F33.1 Seems to be getting a little worse Hiatal hernia 21309513 K 44.9 Would like referral to new GI Hypercholesterolemia 136 78870 E78.00 LDL 138 HDL 48 Gastritis 2822602 K29.70 gerd , and esophagiti s, will need new GI specialist to follow her Body mass index 25-29 - overweight 198815508 Z68.29 will refer to [facility] [id number] Franky Piercearun [facility] [address] [facility], [place] [address] 07/12/2020 15:06:23 07/12/2020 15:57:59 Mild intermittent asthma 867831877 J45.20 Has been well controlled with current treatment Hypothyroidism 27312289 E03.9 prior noted jump in tsh to 3.37 from 0.3 will be rechecking lab Hypercholesterolemia 136 00607 E78.00 LDL 138 HDL 48 will cont current dose of atorvastat in and follow Hepatitis C screening 41 5606660 Z11.59 next lab Dysfunctio n of right eustachian tube 5182488008 430484 H69.91 to try sudafed Jaw pain 146678989 R68.8 4 could this be her eustachian tube dysfunctio n ? she has a mouth guard that she is not wearing... ... or just eustachian tube dysfun.. [id number] Franky Bruno [facility] [address] [facility] [address],[place] [address] 09/14/2020 14:03:29 09/14/2020 14:50:42 Hearing loss 09776741 H91.91 in meantime will try the flonase diamante [id number] Franky Bruno [facility] [address] [facility] [address],[place] [address] 10/27/2020 10:21:34 10/27/2020 11:19:09 Dysfunction of right eustachian tube 2805631002 958092 H68.001 the patient most likely has a Eustachian tube dysfunctio n [id number] Franky Bruno [facility] [address],[place] [address] 02/18/2021 08:16:34 02/18/2021 16:43:14 Moderate recurrent major depression 77071142 F33.1 Seems to be getting a little worse Hypothyroidism 12396195 E03.9 prior notedtsh 0.6 Hypercholesterolemia 136 21621 E78.00 LDL 108 was 138 HDL now 53 was 48 will cont current dose of atorvastat in and follow Gastroesop hageal reflux disease 222309311 K21.9 seems to be stabletake s two omeprazole daily Generalized rash 8081329 06 R21 to use sparingly [id number] Franky Bruno [facility] [address] [facility] [address],[place] [address] 04/25/2021 11:32:05 04/25/2021 15:57:53 Dysuria 66273864 R30.9 will start her on abxand send her urine out for culture [id number] rFanky Bruno [facility] [address] [facility] [address],[place] [address] 09/06/2021 09:22:24 09/06/2021 16:27:14 Fever with chills 369703941 R50.81 continue on APAP Cough 97571892 R05.1 mild, can use OTC meds Pain in throat 596618410 R07.0 start on medrol, z chiki and lidocaine for symptom treatment [id number] Franky Bruno [facility] [address] [facility] [address] 09/20/2021 11:59:52 09/23/2021 12:30:58 Taste sense altered 889395671 R43.2 possible combinatio ns of things Otalgia of right ear 744 9849869 H92.01 sees ENT [id number] Franky Bruno [facility] [address] [facility], ite [facility] [place] [address] 06/09/2022 11:20:21 06/09/2022 12:18:05 Dysuria 99500785 R30.9 will start her on abxand send her urine out for culture Osteopenia 457449719 M85 .80 need recheck bone density as wellthe patient has a loss of bone in her teethwill recheck her values Hypercholesterolemia 136 70943 E78.2 will recheck lab work Hypothyroidism 90536546 E03.8 will set up with recheck BW Abdominal pain 61577933 R10.31 will set up with US abd/pelvis Xerostomia 87649250 K11. 7 suggested by dental hygienist Nausea 443757823 R11.0 [id number] Franky Bruno [facility] [address] [facility],[place] [address] 10/13/2022 14:10:03 10/13/2022 15:57:08 Pre-surgery evaluation 986797213 Z01.818 The patient was seen in the office today for pre-op evaluation . All medical conditions on patient's problem list were addressed and are currently stable, no interventi on needed at this time. Based on history and physical performed, the patient is cleared for surgery. 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 5776477605 92912 M65.341 agreed to hand surgeon in case it does not improveagr eed to conservati ve therapy Vertigo 701897153 R42 continue on meclizine everyday for vertigo since there is no other causes for it and PT was ineffectiv e Depressive disorder 3548 9007 F32.1 stable Anxiety 77251991 F41.1 [place] 7 0 Asthma 776264910 J45.20 stable [id number] Franky Bruno [facility] Medicine [address] [facility] [address] [address] 03/04/2024 11:28:02 03/04/2024 11:56:44 Acute urinary tract infection 249403019 N39.0 start on ciprofloxa cihtra [id number] Franky Bruno [facility] [address] [facility],[place] [address] 04/15/2024 15:35:11 04/15/2024 16:19:25 Sleep apnea 94580930 G47.33 stable Vertigo 355234594 R42 continue on meclizine everyday for vertigo since there is no other causes for it and PT was ineffectiv e Xerostomia 46560066 K11. 7 stable Hypothyroidism 62468966 E03.8 will set up with recheck BW Hypercholesterolemia 136 88380 E78.2 will recheck [id number] Franky Bruno [facility] [address] [facility],[place] [address] 08/20/2024 13:57:13 08/20/2024 14:43:12 Biceps tendinitis [id number] M75.21 two weeks of ice, rest and meloxicam, report back after two weeks to update [id number] Franky Bruno [facility] Internal Medicine [address] [facility] on [address],[place] [address] 10/24/2024 14:46:40 10/24/2024 15:40:08 Depression screening 233592803 Z13.31 opos marital issues Hypothyroidism 47483940 E03.8 has not had lab in 2 years needs to have donetsh 0.6 last checked Hypercholesterolemia 136 08224 E78.2 LDL 108 was 138 HDL now 53 was 48 will cont current dose of atorvastat in and follow Osteoarthr itis of joint of bilateral hands 0105909969 92574 M19.041 M19.042 06690776 will try to use the meloxicam Asthma 418262258 J45.20 relates has had tx for this with montulekas t for many years not using albut hasnt wheezed at alll will try stopping Xerostomia 92725541 R68. 2 8024 Rec OTC dry mouth solutions will cont pilocarpin e Likely medication s related Uses nightime mouthguard Left ring finger blister with infection [id number] S60.425A L08.9 4700802002 Pain of ri ght shoulder region 4112653478 M25.511 74736547 Menopausal symptom 91469 002 N95.1 064478 having hot flashes at times then feels cold too [id number] Franky Bruno [facility] Internal Medicine [address] [facility],[place] [address] 12/30/2024 11:23:22 12/30/2024 15:16:27 Depression screening 136565856 Z13.31 0 Acute urin yanet tract infection 572679924 N39.0 701810 start on ciprofloxa chitra Contact de rmatitis caused by urushiol from Eastern poison paulo 909471776 L23.7 098568 608807 Franky Bruno [facility] Internal Medicine [address] [facility],[place] [address] 05/11/2025 09:53:54 05/11/2025 10:57:29 Depression screening 375639556 Z13.31 3204512 0 Obesity ca used by energy imbalance 104279317 E66.812 E66.09 Z68.35 02915121 start on topimax Acquired hypothyroidism 249144739 E03.9 23603 will set up with recheck General ex amination of patient 084004023 Z00.00 075956 recommende d flu, RSV, pna and Tdap Health Concerns Section Related Observation LastModified by Organization Detai ls LastModified Time None Recorded Concern Status LastModified by Organization Details LastModified Time None Recorded Advance Directives Directive None Recorded Payers Insurance Date Sequence Insurance Name Policy Number Policy Samuel Covered Member ID Samuel Member ID Guarantor Name 05/11/2025 2 [place] [id number] Alesia Botellotierra [id number] Alesia Thjaz 05/11/2025 1 [place] [employer] Alesia Manjarrez [id number] Alesia Mckeonjaz Notes Date Note Type Note Provider Name and Address Organization Details Recorded Time 4 text/html f/u routine the patient reports [...] due to dry air VINAY QUEZADA [address] [place], [address], [facility] Internal Medicine 04/15/2024 16:16:11 5 text/html ROS as noted [...] agreesmeloxicam refilledtake with food VINAY QUEZADA [address] [place], [address], [facility] Internal Medicine 08/20/2024 14:31:45 5 text/html ROS as noted in the HPI here for rechkrelates she is taking 13 diff RX and want to see if she can come offshe is taking creo and a probiotic for her digestiondiscussed bupropion use but is not happy Franky Bruno DO [address] [place], [address], [facility] Internal Medicine 10/24/2024 15:30:03 5 text/html ROS [...] hydrocortisone to no affect VINAY QUEZADA [address] [place], [address], [facility] Internal Medicine 12/30/2024 11:55:57 5 text/html Annual WellnessReported by PatientSocial/Behaviora l HistoryFor diet and nutrition, patient reportshealthy diet,discussed vitamin and supplement use,discussed portion control,discussed maintaining calcium balance, anddiscussed diet improvement. For fracture risk, patient reportsno history of fractures,no recent explained fracture,no sudden unexplained fractures, andno previous musculoskeletal injuries. For physical activity, patient reportsexercises on a regular basis,recent increase in physical activity,good physical condition,discussed weightbearing activities, anddiscussed exercise habits. For additional lifestyle factors, patient reportsno tobacco useanddrinks alcohol (mild-moderate).Mental Status:For depression risk, patient reportsnever feels sad, empty, or tearful,no loss of interest in activities,no significant changes in weight,no sleep disturbances or insomnia,no agitation,no loss of energy,no feelings of worthlessness or guilt,no thoughts of suicide,no history of depression, andno history of mood disorders.Functional AbilityFor hearing, patient reportsno loss of hearing. For vision, patient reportsno vision problems.ROS as noted in the HPI patient weight 161 lbs VINAY QUEZADA [address] [place], [address], [facility] Internal Medicine 05/11/2025 10:55:23 OBGyn Episode No OBEpisode recorded.
--- OUTSIDE RECORDS SUMMARY | 2025-05-15 10:26 | XMS_ITS | Encounter Summary ---
Author Organization [facility] Address [address] [facility] [address] [place] [address] Phone Care Team Providers Care Final Rail Cutter Name Role Phone Franky Estevez DO Primary Care Provider [phone] Encounter Details Date Type Department Care Team (Late st Contact Info) Description 07/29/2021 Procedure Pass [facility], [address] [address] Social History Tobacco Use Types Packs/Day Years [...] on filedocumented in this encounter Care Teams Final Rail Cutter Relationship Specialty Start Date End Date Franky Estevez DO [email or web address] PCP - General Internal Medicine 05/23/17 documented as of this encounter Additional Source Comments The information contained in this document represents components of the legal health record. It is not the complete legal health record.[facility]
--- OUTSIDE RECORDS SUMMARY | 2025-05-15 10:26 | XMS_ITS | Encounter Summary ---
Author Organization [facility] Address [address] [place] [address] Phone Care Team Providers Care Revenue Enforcement Agent Name Role Phone Franky Estevez DO Primary Care Provider [phone] Encounter Details Date Type Department Care Team (Latest Contact Info) Description 05/23/2017 Transcribe Orders [facility] Phleb Lisa [address] [place] [address] Brenden Becker MD [address] [place] [address] [email or web address] Abdominal distention (Primary Dx); Neurogenic bowel Social [...] EST) TSH 1.67 0.27 - 4.20 uIU/mL [facility] Blood 05/23/2017 4:10 PM EST 05/23/2017 4:18 PM EST us Brenden Becker MD LAB BLOOD BKR ORDERABLES Chhaya l Result [facility] [address] [place] [address] * C-Reactive Protein (05/23/2017 4:10 PM EST) C REACTIVE PROTEIN 0.2 0 - 0.5 mg/L [facility] Blood 05/23/2017 4:10 PM EST 05/23/2017 4:18 PM EST Brenden Becker MD LAB BLOOD BKR ORDERABLES Chhaya l Result [facility] [address] [place] [address] * Comprehensive metabolic panel (05/23/2017 4:10 PM EST) SODIUM 141 133 - 146 mmol/L [facility] POTASSIUM 4.3 3.3 - 5.1 mmol/L [facility] CHLORIDE 103 96 - 108 mmol/L [facility] CO2 27 21 - 35 mmol/L [facility] BUN 17 6 - 19 mg/dL [facility] CREATININE 0.70 0.5 - 1.5 mg/dL [facility] GLUCOSE 91 70 - 99 mg/dL [facility] ALBUMIN 3.9 3.9 - 4.8 g/dL [facility] TOTAL PROTEIN 6.9 6.5 - 8.0 g/dL [facility] CALCIUM 9.2 8.4 - 10.3 mg/dL [facility] ALKALINE PHOSPHATASE 109 39 - 117 U/L [facility] TOTAL BILIRUBIN 0.6 0 - 1.2 mg/dL [facility] AST 18 0 - 37 U/L [facility] ALT 15 0 - 40 U/L [facility] GLOBULIN 3.0 1 - 4.8 g/dL [facility] EGFR >60 >60 mL/min/1.7 3m2 [facility] Comment:Abnormal if <60. If patient is -Citizen Of [place], multiply the result by 1.21. ANION GAP 15 10 - 20 mmol/L [facility] Blood 05/23/2017 4:10 PM EST 05/23/2017 4:18 PM EST Brenden Becker MD LAB BLOOD BKR ORDERABLES Chhaya stephenson Result [facility] [address] [place], [place] [id number] * (ABNORMAL) CBC and differential (05/23/2017 4:10 PM EST) WBC 8.33 3.40 - 11.20 K/uL [facility] RBC 4.61 3.80 - 4.80 M/uL [facility] HGB 13.7 12.0 - 15.0 g/dL [facility] HCT 39.3 36.0 - 46.0 % [facility] PLT 251 130 - 400 K/uL [facility] MCV 85.2 79.0 - 98.0 fL [facility] MCH 29.7 27.0 - 34.8 pg [facility] MCHC 34.9 31.5 - 36.0 g/dL [facility] RDW 13.2 10.8 - 14.6 % [facility] MPV 10.5 9.4 - 12.4 fl [facility] NRBC 0.00 /100 WBCs [facility] ABSOLUTE NRBC 0.00 K/uL [facility] DIFF METHOD Auto [facility] NEUTS 38.9(L) 45.30 - 77.70 % [facility] LYMPHS 47.4(H) 12.30 - 39.70 % [facility] MONOS 10.6 4.10 - 12.80 % [facility] EOS 2.0 0 - 7.2 % [facility] BASOS 0.7 0 - 2.80 % [facility] Granulocytes, immature (%) 0.4 0.0 - 0.9 % [facility] ABSOLUTE NEUTS 3.24 1.40 - 7.70 K/uL [facility] ABSOLUTE LYMPHS 3.95(H) 0.60 - 3.20 K/uL [facility] ABSOLUTE MONOS 0.88(H) 0.11 - 0.59 K/uL [facility] ABSOLUTE EOS 0.17 0.01 - 0.50 K/uL [facility] ABSOLUTE BASOS 0.06 0.00 - 0.08 K/uL [facility] Granulocytes, immature 0.03 0.00 - 0.05 K/uL [facility] Blood 05/23/2017 4:10 PM EST 05/23/2017 4:18 PM EST us Brenden Becker MD LAB BLOOD BKR ORDERABLES Chhaya l Result Performing Organization Address [facility]/ZIP Co de Phone Number [address] [address] * Immunoglobulin A (05/23/2017 4:10 PM EST) IgA 220 70 - 400 mg/dL [facility] Blood 05/23/2017 4:10 PM EST 05/23/2017 4:18 PM EST Brenden Becker MD LAB BLOOD BKR ORDERABLES Chhaya l Result Performing Organization Address [facility] Co de Phone Number [address] [address] * Tissue transglutaminase IgA (05/23/2017 4:10 PM EST) TTG IGA ANTIBODY 1.3 <4.0 (Negative) U/mL [facility] DPT OF LAB MED AND PAT+ Blood 05/23/2017 4:10 PM EST 05/23/2017 4:19 PM EST Brenden Becker MD LAB BLOOD BKR ORDERABLES Chhaya l Result Performing Organization Address City/[facility] Co de Phone Number [facility] DPT OF LAB MED AND PAT+ [address] [place] [address] documented in this encounter Visit Diagnoses Diagnosis Abdominal distention- Primary Flatulence, eructation, and gas pain Neurogenic bowel documented in this encounter Care Teams Revenue Enforcement Agent Relationship Specialty Start Date End Date Franky Estevez DO PCP - General Internal Medicine 05/23/17 documented as of this encounter Additional Source Comments The information contained in this document represents components of the legal health record. It is not the complete legal health record.[facility]
--- OUTSIDE RECORDS SUMMARY | 2025-05-15 10:26 | XMS_ITS | Encounter Summary ---
Author Organization [facility] Address [address] [facility] [address] [place] [address] Phone Care Team Providers Care Bleaching Supervisor Name Role Phone Franky Estevez DO Primary Care Provider [phone] Encounter Details Date Type Department Care Team ([facility] st Contact Info) Description 10/26/2024 Transcribe Orders Virtual Department [address] [place] [address] Franky Estevez DO [address] [employer] [address] [place] [address] [place] [address] [email or web address] Right shoulder pain, unspecified chronicity (Primary Dx) [...] clinician's provided indication for this examination in [facility]: Outside Radiology Order; Pain in right [...] chronicity documented in this encounter Care Teams Bleaching Supervisor Relationship Specialty Start Date End Date Franky Estevez DO PCP - General Internal Medicine 05/23/17 documented as of this encounter Additional Source Comments The information contained in this document represents components of the legal health record. It is not the complete legal health record.[facility]
--- OUTSIDE RECORDS SUMMARY | 2025-05-15 10:26 | XMS_ITS | Clinical Summary ---
Author Organization [facility] Address [address] [place] [address] Phone Care Team Providers Care Cafeteria Supervisor Name Role Phone Franky Estevez Primary Care Provider [phone] Allergies Active Allergy Reactions Criticality Noted Date [...] VACCINES (50+ years) (2 of 2 - PPSV23, PCV20, or PCV21) 04/07/2021 02/10/2021 RSV VACCINE (1 - 1-dose [...] of bone density and structure, unspecified site THYROID STIMULATING HORMONE (TSH) Routine 05/23/2017 4:10 PM EST Abdominal distention [...] EST) TSH 1.67 0.27 - 4.20 uIU/mL [facility] Blood 05/23/2017 4:10 PM EST 05/23/2017 4:18 PM EST us Brenden Becker MD LAB BLOOD BKR ORDERABLES Chhaya l Result [facility] [address] [place] [address] from Last 3 Months or Most Recently Relevant to Health Maintenance Insurance MED[place] PART A [place] [id number] [employer] MEDEX SUPPLEMENT MEDICARE PART A & B [employer] MED[employer] SUPPLEMENT MEDICARE PART A & B [employer] MEDEX SUPPLEMENT MEDICARE PART A & B [employer] MEDEX SUPPLEMENT MEDICARE PART A & B [employer] MEDEX SUPPLEMENT MEDICARE PART A & B [employer] MEDEX SUPPLEMENT MEDICARE PART A & B [employer] MED[employer] SUPPLEMENT MEDICARE PART A & B [employer] SUPPLEMENT MEDICARE PART A & B [employer] MEDEX SUPPLEMENT Care Teams Cafeteria Supervisor Relationship Specialty Start Date End Date Franky Estevez DO [email or web address] PCP - General Internal Medicine 05/23/17 Additional Source Comments The information contained in this document represents components of the legal health record. It is not the complete legal health record.[facility]
--- OUTSIDE RECORDS SUMMARY | 2025-05-15 10:26 | XMS_ITS | Encounter Summary ---
Author Organization [facility] Address [address] [facility] [address] [place] [address] Phone Care Team Providers Care Woods Rider Name Role Phone Farnky Estevez DO Primary Care Provider [phone] Encounter Details Date Type Department Care Team (Latest Contact Info) Description 06/21/2017 Transcribe Orders [facility] Specimen Processing [address] [place] [address] Deborah Yates PA-C [address] [place] [address] [email or web address] Diarrhea, unspecified type (Primary Dx) Social History [...] AM EST) ST GIARDIA ANTIGEN Negative Negative [facility] DPT OF LAB MED AND PAT+ Stool (Stool) 06/21/2017 10: 30 AM EST 06/21/2017 5:33 PM EST Deborah Yates PA-C LAB BODY FLUIDS AND STOOL ORDER ANNIE Final Result [facility] DPT OF LAB MED AND PAT+ [address] [place] [address] * (ABNORMAL) Stool culture (06/21/2017 10:30 AM EST) Specimen Source/ Description STOOL STOOL STOOL [facility] Special Requests None [facility] Culture/Test NO SALMONELLA, SHIGELLA OR CAMPYLOBACTER ISOLATED No gram negative von isolated(A) [facility] Report Status 06/24/2017 FINAL [facility] Stool (Stool) 06/21/2017 10: 30 AM EST 06/21/2017 5:34 PM EST Deborah Yates PA-C LAB MICROBIOLOGY CULTURE ORDERA BLES Final Result Performing Organization Address City/State/[facility] Co de Phone Number [facility] [address] [place] [address] documented in this encounter Visit Diagnoses Diagnosis Diarrhea, unspecified type- Primary documented in this encounter Care Teams Woods Rider Relationship Specialty Start Date End Date Franky Estevez DO [email or web address] PCP - General Internal Medicine 05/23/17 documented as of this encounter Additional Source Comments The information contained in this document represents components of the legal health record. It is not the complete legal health record.[facility]
--- OUTSIDE RECORDS SUMMARY | 2025-05-15 10:26 | XMS_ITS | Encounter Summary ---
Author Organization [facility] Address [address] [place] [address] Phone Care Team Providers Care Global Regulatory Affairs Manager Name Role Phone Franky Estevez DO Primary Care Provider [phone] Encounter Details Date Type Department Care Team (Latest Contact Info) Description 05/31/2017 Transcribe Orders [facility] Specimen Processing [address] [place] [address] Brenden Becker MD [address] [place] [address] [email or web address] Neurogenic bowel (Primary Dx) Social History Tobacco [...] EST) Specimen Source/ Description STOOL STOOL STOOL [facility] Special Requests None [facility] DIRECT EXAM No parasites found by Trichrome Stain [facility] DIRECT EXAM NO PARASITES FOUND BY DIRECT OR CONCENTRATION METHODS [facility] Report Status 06/10/2017 FINAL [facility] Stool (Stool) 05/28/2017 10: 00 AM EST 05/31/2017 9:00 PM EST us Brenden Becker MD LAB BODY FLUIDS AND STOOL ORD ERABLES Final Result [facility] [address] [place] [address] documented in this encounter Visit Diagnoses Diagnosis Neurogenic bowel- Primary documented in this encounter Care Teams Global Regulatory Affairs Manager Relationship Specialty Start Date End Date Franky Estevez DO [email or web address] PCP - General Internal Medicine 05/23/17 documented as of this encounter Additional Source Comments The information contained in this document represents components of the legal health record. It is not the complete legal health record.[facility]
--- OUTSIDE RECORDS SUMMARY | 2025-05-15 10:26 | XMS_ITS | Encounter Summary ---
Author Organization [facility] Address [address] [address] Phone Care Team Providers Care Seismology Teacher Name Role Phone Franky Estevez DO Primary Care Provider [phone] Encounter Details Date Type Department Care Team (Latest Contact Info) Description 06/09/2022 Transcribe Orders Virtual Department [address] [place] [address] Gabi Fishman PA [address] [place] [address] [place] [address] Osteopenia, unspecified location Social History Tobacco Use [...] location documented in this encounter Care Teams Seismology Teacher Relationship Specialty Start Date End Date Franky Estevez DO PCP - General Internal Medicine 05/23/17 documented as of this encounter Additional Source Comments The information contained in this document represents components of the legal health record. It is not the complete legal health record.[facility]
--- OUTSIDE RECORDS SUMMARY | 2025-05-15 10:26 | XMS_ITS | Continuity of Care Document ---
Author Organization [facility], [facility] Address [address] [place] [address] [place] [address] Assessment No assessment recorded. Plan of Treatment Reminders Order Date Submit Date Provider Last Modified By Organization Details Last Modified Time Details Appointments FOLLOW UP 15 2024 03:30P M DR BRUNO Not available Not available Not available ANNUAL EXAM 2025 03:30P M VINAY QUEZADA Not available Not available Not available Lab TSH + free T4, serum 2024 025 [facility], [address] [place] [address], [id number], 05/11/2025 10:54:27 Referral None recorded. Procedures None recorded. Surgeries None recorded. Imaging None recorded. Medication Orders topiramat e 25 mg tablet 2024 025 [facility], [address] [place], [address], 05/11/2025 10:46:03 Patient TargetsNo targets recorded. Patient InstructionsNo instructions recorded. Reason for Referral None Reported. Problems Name Problem SNOMED Code Status Onset Date Resolution Date Notes Provider Name and Address Organization Details Recorded Time Disorder of urinary bladder 27424722 Active 2017 Naila meza [facility] 8 08:34:35 Asthma 079929419 Completed 201702/17/2019 VINAY QUEZADA [address] [place], [address], [facility] 4 12:06:17 Hypothyr oidism 53942035 [facility] 2017 [facility] 08:[facility]55 Gastroes ophageal reflux disease 458040983 Active 2017 [facility] 8 08:36:01 Hypercho lesterol emia 80587355 Active 2017 [facility] 8 08:37:16 Insomnia 312073220 Active 2017 [facility] 8 08:37:25 Esophagi tis 86757898 Active 2017 [facility] 8 08:37:36 Gastriti s 2202528 Active 2017 [facility] 8 08:37:46 Hiatal hernia 30197465 Active 2017 [facility] 8 08:38:00 Osteopen ia 732309951 Active 2017 Franky Bruno DO [address] [place], [address], [facility] 8 12:32:20 Mild intermit tent asthma 453554457 Active 2018 [facility] [address] [place] [address], [address], [facility] 9 10:41:12 Moderate recurren t major depressi on 84308446 Active 2018 [facility] [address] [place], [address], [facility] 9 10:42:07 Pain in throat 342013028 Active 2021 VINAY QUEZADA [address] [place] [address], [address], [facility] 2 14:07:49 Cough 18052701 Active 2021 VINAY QUEZADA [address] [place] [address], [address], [facility] 2 14:08:06 Taste sense altered 302949540 Active 2021 VINAY QUEZADA [address] [place], [address], [facility] 2 12:27:03 Otalgia of right ear 1146663512 Active 2021 could be migraine with her symptoms VINAY QUEZADA [address] [place], [address], [facility] 3 14:55:24 Dysuria 20022789 Active 2021 VINAY QUEZADA [address] [place], [address], [facility] 5 11:03:25 Xerostom ia 32998507 Active 2022 Franky Bruno DO [address] [place] [address], [address], [facility] 5 15:20:56 Anxiety 70352275 Active 2022 VINAY QUEZADA [address] [place] [address], [address], [facility] 3 16:45:11 Sleep apnea 46779979 Active 2022 VINAY QUEZADA [address] [place], [address], [facility] 3 11:46:14 Vertigo 328857135 Active 2022 Franky Bruno DO [address] [place] [address], [address], [facility] 3 10:37:28 Recurren t labyrint hitis 272162321 Active 2022 Franky Bruno DO [address] [place] [address], [address], [facility] 3 22:23:24 Acute urinary tract infectio n 996609059 Active 2023 VINAY QUEZADA [address] [place], [address], [facility] 5 11:42:58 Acquired trigger finger of right ring finger 7001386602 67020 Active 2023 VINAY QUEZADA [address] [place], [address], [facility] 4 11:43:57 Depressi ve disorder 70943890 Active 2023 VINAY QUEZADA [address] [place], [address], [facility] 4 11:53:05 Asthma 103563025 Active 2023 VINAY QUEZADA [address] [place], [address], [facility] 4 12:06:17 Tendinit is of right biceps femoris Active 2024 VINAY QUEZADA [address] [place], [address], [facility] 5 14:24:17 Biceps tendinit is 448558733 Active 2024 VINAY QUEZADA [address] [place], [address], [facility] 5 14:26:18 Biceps tendinit is 807920682 Active 2024 VINAY QUEZADA [address] [place], [address], [facility] 5 14:26:25 Osteoart hritis of joint of bilatera l hands 7688264800 62768 Active 2024 Franky Bruno DO [address] [place], [address], [facility] 5 15:17:25 Left ring finger blister with infectio n Active 2024 Franky Bruno, DO [address] [place] [address], [address], [facility] 5 15:23:27 Pain of right shoulder region Active 2024 Franky Bruno, DO [address] [place], [address], [facility] 5 15:25:54 Menopaus al symptom 01716771 Active 2024 Franky Bruno, DO [address] [place] [address], [address], [facility] 5 15:27:40 Pain of elbow region 19650881 Active 2024 Franky Batsheva Stanarun, DO [address] [place] [address], [address], [facility] 5 14:56:30 Contact dermatit is caused by urushiol from Eastern poison paulo 642710320 Active 2024 VINAY QUEZADA [address] [place] [address], [address], [facility] 5 11:44:25 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 Medical Equipment None Reported. Allergies Allergen ID Allergen Name Allergen Category Reaction Reaction Severity Criticality Documentation Date Start Date Code Code System Note Provider Name and Address Organization Details Recorded Time 21019 Adhesive agent (substanc e) environme nt,medica tion Not available Not available Not available 04/21/20252022 65284 0007 SNOMED Other react ion(s ): also plast ic gives her a rash, Rash Not Available [facility] - External Data Service - prod 5 03:43:54 60101 sulfameth oxazole / trimethop rim medicatio n Not available Not available Not available 04/21/20252017 60435 RxNorm unrec ogniz ed react ion (text : Unkno wn, code: 57968 5006) (from exter nal sourc e) Not Available [employer] - External Data Service - prod 5 03:43:54 35365 citalopra m medicatio n Not available Not available Not available 04/21/20252017 2556 RxNorm unrec ogniz ed react ion (text : Unkno wn, code: 38559 5006) (from exter nal sourc e) Not Available [employer] - External Data Service - prod 5 03:43:54 92924 Latex (substanc e) environme nt,medica tion rash swelling Not available Not available [facility] 04/21/20252017 12716 8007 SNOMED Other react ion(s ): Unkno wn Not Available [employer] - External Data Service - prod 5 03:43:54 95607 Substance with sulfonami de structure and antibacte rial mechanism of action (substanc e) medicatio n Not available Not available Not available 04/21/20252017 33885 8003 SNOMED Other react ion(s ): Unkno wn unrec ogniz ed react ion (text : Unkno wn, code: 66739 5006) (from exter nal sourc e) Not Available mynor [employer] External Data Service - prod 5 03:43:54 1419 amoxicill in medicatio n Not available Not available Not available 10/09/2017 723 RxNorm Naila meza [facility] 8 08:33:50 1420 Celexa medicatio n Not available Not available Not available 10/09/2017 44057 8 RxNorm Naila meza [facility] 8 08:34:02 1421 Bactrim medicatio n Not available Not available Not available 10/09/2017 10952 9 RxNorm Naila Igel susana, [facility] 8 08:34:11 1422 latex environme nt,medica tion Not available Not available Not available 10/09/2017 48370 91 RxNorm Naila meza, [facility] 8 08:34:21 3935 fructose food,medi cation Not available Not available Not available 11/18/2019 4570 RxNorm stoma ch issue s [facility] 0 09:48:44 Medications Name Sig Start [...] Available Not Available No t Available 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 05/11/2025 [email or web address] Information not available 05/11/2025 Sex: Unknown Functional Status Question Answer Note LastModified by Organization D etails LastModified Time Do you or have you ever used any other forms of tobacco or nicotine? No [email or web address] Information not available 11/05/2023 Mental Status None recorded. Family History Nothing Reported. Medical History No medical history recorded. Gynecological HistoryNo gynecological history recorded. Obstetrics History GPAL:G 0 P 0 0 0 0 Immunizations Vaccine Type Date Status Note Provider Nam e and Address Organization Details Recorded Time Influenza, split virus, quadrivalent, preservative 1 [facility] 12:09:47 influenza nasal, unspecified formulation 4 completed Franky Bruno DO [address] [address], [address], [facility] 02/10/2024 19:03:55 SARS-COV-2 (COVID-19) vaccine, UNSPECIFIED 4 completed Franky Bruno DO [address] [place] [address], [address], [facility] 02/10/2024 19:04:03 Influenza, split virus, quadrivalent, preservative 9 [facility] 11/18/2019 09:45:35 Influenza, split virus, quadrivalent, preservative 0 completed Molly meza [facility] 07/12/2020 15:15:23 COVID-19, mRNA, LNP-S, PF, 30 mcg/0.3 mL dose 1 completed Franky Bruno DO [address] [place] [address], [address], [facility] 09/14/2020 14:09:56 COVID-19, mRNA, LNP-S, PF, 30 mcg/0.3 mL dose 1 completed Franky Bruno DO [address] [place] [address], [address], [facility] 09/14/2020 14:10:11 Past Encounters Encounter ID Performer Location Encounter Start Date Encounter Closed Date Diagnosis/Indication Diagnosis SNOMED-CT Code Diagnosis ICD10 Code Diagnosis IMO Codes Diagnosis Note [id number] Franky Bruno DO [facility] [address],[place] [address] 05/11/2025 09:53:54 05/11/2025 10:57:29 Depression screening 854611458 Z13.31 2813612 0 Obesity ca used by energy imbalance 017174729 E66.812 E66.09 Z68.35 50618316 start on topimax Acquired hypothyroidism 656400506 E03.9 02197 will set up with recheck BW General ex amination of patient 656400197 Z00.00 831050 recommende d flu, RSV, pna and Tdap Health Concerns Section Related Observation LastModified by Organization Detai ls LastModified Time None Recorded Concern Status LastModified by Organization Details LastModified Time None Recorded Payers Encounter Date Sequence Insurance Name Policy Number Policy Samuel Covered Member ID Samuel Member ID Guarantor Name 05/11/2025 2 [place] [id number] Alesia Manjarrez [id number] Alesia Manjarrez 05/11/2025 1 [place] [employer] Alesia Manjarrez [id number] Alesia Manjarrez Notes Date Note Type Note Provider Name a nd Address Organization Details Recorded Time 5 text/html Annual WellnessReported by PatientSocial/Behavio ral HistoryFor diet and nutrition, patient reportshealthy diet,discussed [...] lifestyle factors, patient reportsno tobacco useanddrinks alcohol (mild-moderate).Menta l Status:For depression risk, patient reportsnever feels sad, [...] patient weight 161 lbs VINAY QUEZADA [address] [place], [address], [place] [facility] 05/11/2025 10:55:23 OBGyn Episode No OBEpisode recorded.
--- OUTSIDE RECORDS SUMMARY | 2025-05-15 10:26 | XMS_ITS | Encounter Summary ---
Author Organization [facility] Address [address] [address] Phone Care Team Providers Care Residence Counselor Name Role Phone Franky Estevez DO Primary Care Provider [phone] Encounter Details Date Type Department Care Team (Late st Contact Info) Description 09/18/2017 Ancillary Orders Virtual Department [address] [place] [address] Franky Estevez DO [address] [place] [address] [email or web address] Osteopenia of multiple sites Social History Tobacco [...] at all three sites since 11/09/2008. POS -[id number] Narrative 09/26/2017 2:52 PM EDT This is [...] imaging is no performed. Procedure Note Kobe Jordan MD - 09/26/2017 This is a 67-year-old [...] at all three sites since 11/09/2008. POS -[id number] us Franky Estevez DO IMG BD BONE DENSITY DEXA Final R esult documented in this encounter Visit Diagnoses Diagnosis Osteopenia of multiple sites Osteopenia of multiple sites documented in this encounter Care Teams Residence Counselor Relationship Specialty Start Date End Date Franky Estevez DO [email or web address] PCP - General Internal Medicine 05/23/17 documented as of this encounter Additional Source Comments The information contained in this document represents components of the legal health record. It is not the complete legal health record.[facility]
--- OUTSIDE RECORDS SUMMARY | 2025-05-15 10:26 | XMS_ITS | Encounter Summary ---
Author Organization [facility] Address [address] [place] [address] [place] [address] Phone Care Team Providers Care Office Admin Name Role Phone Franky Estevez DO Primary Care Provider [phone] Encounter Details Date Type Department Care Team (Late st Contact Info) Description 07/19/2017 Procedure Pass [facility] Endoscopy Admitting Dept Virtual Department [address] [place] [address] Social History Tobacco Use Types Packs/Day Years [...] on filedocumented in this encounter Care Teams Office Admin Relationship Specialty Start Date End Date Franky Estevez DO PCP - General Internal Medicine 05/23/17 documented as of this encounter Additional Source Comments The information contained in this document represents components of the legal health record. It is not the complete legal health record.[facility]
--- OUTSIDE RECORDS SUMMARY | 2025-05-15 10:26 | XMS_ITS | Encounter Summary ---
Author Organization [facility] Address [address] [place] [address] [place] [address] Phone Care Team Providers Care Refiner Operator Name Role Phone Franky Estevez DO Primary Care Provider [phone] Encounter Details Date Type Department Care Team (Latest Contact Info) Description 05/31/2017 Transcribe Orders [facility] Specimen Processing [address] [place] [address] Brenden Becker MD [address] [place] [id number] [email or web address] Neurogenic bowel (Primary Dx) Social History Tobacco [...] EST) Specimen Source/ Description STOOL STOOL STOOL [facility] Special Requests None [facility] DIRECT EXAM No parasites found by Trichrome Stain [facility] DIRECT EXAM NO PARASITES FOUND BY DIRECT OR CONCENTRATION METHODS [facility] Report Status 06/10/2017 FINAL [facility] Stool (Stool) 05/30/2017 10: 00 AM EST 05/31/2017 9:02 PM EST us Brenden Becker MD LAB BODY FLUIDS AND STOOL ORD ERABLES Final Result [address] [address] * Ova and parasites, stool (05/29/2017 10:00 AM EST) Specimen Source/ Description STOOL STOOL STOOL [facility] Special Requests None [facility] DIRECT EXAM No parasites found by Trichrome Stain [facility] DIRECT EXAM NO PARASITES FOUND BY DIRECT OR CONCENTRATION METHODS [facility] Report Status 06/10/2017 FINAL [facility] Stool (Stool) 05/29/2017 10: 00 AM EST 05/31/2017 9:01 PM EST us Brenden Becker MD LAB BODY FLUIDS AND STOOL ORD ERABLES Final Result Performing Organization Address City/[facility] Co de Phone Number [address] [address] documented in this encounter Visit Diagnoses Diagnosis Neurogenic bowel- Primary documented in this encounter Care Teams Refiner Operator Relationship Specialty Start Date End Date Franky Estevez DO [email or web address] PCP - General Internal Medicine 05/23/17 documented as of this encounter Additional Source Comments The information contained in this document represents components of the legal health record. It is not the complete legal health record.[facility]
== END 2025-05-15 10:24 | disposition home or self-care (01) ==
LOC: HO.US 10:23
PROVIDERS: PCP Internal Medicine; Visit Provider Nurse Practitioner
DX: K21.9 Gastro-esophageal reflux disease without esophagitis (principal); R11.0 Nausea
CPT/HCPCS: 76700

== ENCOUNTER → 2025-05-15 10:25 | Outpatient (BNV) | payer MEDICARE, SELFPAY | PROVIDERS: PCP Internal Medicine; Visit Provider Specialist | DX: K76.0 Fatty (change of) liver, not elsewhere classified (principal) | CPT/HCPCS: 76700 ==